=== PATIENT | male | born 1960 | race Caucasian/White ===

== ENCOUNTER 2016-04-18 11:53 | Outpatient (CLI) | payer OTHER ==
[~2016-04-18 11:53] MED LIST: AMOXICILLIN/CL875 MG PO; ASPIRIN 81 LOW81 MG PO; BENICAR20 MG PO; CARVEDILOL12.5 MG PO; CEFEPIME IV; CIPRO500 MG PO; COZAAR25 MG PO; FERROUS SULFAT325 M1 PO; FETZIMA; HYDROCHLOROTHIA50 MG PO; HYDROXYZINE HCL25 MG PO; INVANZ1 GM IV; LANSOPRAZOLE30 MG PO; LEVAQUIN750 MG PO; METFORMIN HCL500 MG PO; MICRO-K 10 EQU10 MEQ PO; MORPHINE SULFAT30 M2 PO; NORVASC5 MG PO; OXYCODONE HCL5 MG PO; OXYCODONE IR PO; OXYCONTIN CR10 MG PO; OXYCONTIN CR15 MG PO; PERCOCET1 TA1 PO; PRILOSEC20 MG PO; SLOW-MAG PO; TRAZODONE HCL100 MG PO; VANCOMYCIN HCL1 GM IV; ZOLOFT50 MG PO; ZYVOX IV; ZYVOX600 MG PO; [UNRECOGNIZED DRUG - REMARK] IV; [UNRECOGNIZED DRUG - SUPPLY]
[2016-05-06] MEDS ORDERED: NORVASC5 MG PO (14:14)
[2016-05-06] MEDS ORDERED: DIPHENHYDRAMINE25 M1 PO (14:15)
[2016-05-06] MEDS ORDERED: CYMBALTA20 MG PO (14:16)
[2016-05-06] MEDS ORDERED: NEURONTIN300 MG PO (14:17)
[2016-05-06] MEDS ORDERED: LEVAQUIN750 MG PO (14:17)
[2016-05-06] MEDS ORDERED: LOPERAMIDE HCL2 M1 PO (14:17)
[2016-05-06] MEDS ORDERED: OMEPRAZOLE20 M1 PO (14:18)
[2016-05-06] MEDS ORDERED: SYMBICORT1 AE1 (14:18)
[2016-05-06] MEDS ORDERED: SYSTANE (14:19)
[2016-05-09] MEDS ORDERED: METFORMIN HCL500 MG PO (16:25)
== END 2016-04-18 23:00 ==
LOC: LAB SRH 11:53
DX: E11.40 Type 2 diabetes mellitus with diabetic neuropathy, unspecified (principal); E11.621 Type 2 diabetes mellitus with foot ulcer
CPT/HCPCS: 90074; 90100; 91286; 95059

== ENCOUNTER 2016-05-06 07:12 | Inpatient (IN) | payer OTHER ==
[2016-05-06] VITALS (8 sets, daily range): BP systolic 110–157; BP diastolic 43–74
[~2016-05-06] VITALS: Ht 193 cm; Wt 138.5 kg
--- NOTE | 2016-05-06 07:59 | DIAGNOSTIC IMAGING REPORT ---
PROCEDURE: XR CHEST 1 VIEW INDICATION: SHORTNESS OF BREATH TECHNIQUE: Portable AP view 07:30 a.m. COMPARISON: Chest x-ray 12/21/2015 FINDINGS: New small right basilar infiltrates. Peribronchial cuffing suggestive of bronchitis. Heart and mediastinum are normal. Thorax is normal. IMPRESSION: 1. Right basilar pneumonia and bronchitis 2. Results discussed with Dr. Long
--- NOTE | 2016-05-06 13:27 | ED NURSING NOTES ---
Clinical Report - Nurses [facility] [address] [place] [address] 05/06/2016 7:12 Patient: CHRISTIN CORDON TRIAGE 07:05/06/16. BP: 134/64 (large adult cuff) taken on the right arm, while lying. HR: 88. RR: 30. O2 saturation: 99% on face mask. Temp: 96.8 F (oral). Pain level now: 0. --07:28 Hailey Moran R.N. late entry - 07:20 05/06/16. --07:54 Hailey Moran R.N. Triage time 07:May 06 2016. Acuity: LEVEL 2. Chief Complaint: SHORTNESS OF BREATH, DIFFICULTY BREATHING and WHEEZING. 07:28 05/06/16. SEPSIS SCREEN: Sepsis Screen. Negative (no infection suspected/documented). MIHIR COMA SCORE: Jasper Coma Scale: 14- eyes open to voice (3); best verbal response- oriented x 4 (5); best motor response- obeys commands (6). --07:28 Hailey Moran R.N. Weight: 136 kg stated. Height/Length: 76 inches Per Patient. BMI: 36.5. --07:25 Hailey Moran R.N. Medications AmLODIPine Besylate Oral 5 mg, 2x a day. Carvedilol Oral (Tablet 12.5 mg) 1 tablet, BID. Hydrochlorothiazide Oral 50 mg, daily. Omeprazole Oral 20 mg, daily. --07:21 Hailey Moran R.N. OxyCODONE HCl ER Oral 15mg BID . --07:21 Hailey Moran R.N. Gabapentin Enacarbil ER Oral. --07:23 Hailey Moran R.N. Loperamide HCl Oral. --07:23 Hailey Moran R.N. Symbicort Inhalation. --07:23 Hailey Moran R.N. Losartan Potassium Oral. --07:23 Hailey Moran R.N. DULoxetine HCl Oral. --07:23 Hailey Moran R.N. DiphenhydrAMINE HCl Oral. --07:35 Hailey Moran R.N. Systane Ophthalmic. --07:35 Hailey Moran R.N. Amoxicillin (not sure of dose) BID . Levaquin Oral 750 mg, daily. --08:09 Hailey Moran R.N. Allergies All narcotics can cause itching- give benadryl before meds . Hydromorphone. ((pills caused itching, but IV dilaudid does ok) ) Promethazine .(itching) Pt had hallucinations when given dilaudid and morphone at hospital same visit . --07:21 Hailey Moran R.N. Sulfa Antibiotics.(hives) --07:21 Hailey Moran R.N. History Arrived by EMS. Historian: EMS. This started just prior to arrival. Onset. (3 AM). He has had wheezing. 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 PAST MEDICAL HX: Diabetes mellitus. Congestive heart failure. Immunizations: status is unknown. SOCIAL HX: Never smoker. No alcohol use or drug use. No infectious disease exposure. ABUSE ASSESSMENT: No report of abuse. --07:28 Hailey Moran R.N. ( EMS reports patient was SOB and called 911 at 3AM, he say he thought it was an allergic reaction, hx CHF, patient wheezing, sats in 70s, placed CPAP and patients sats recovered into the 90s, patient came into ER wheezing, pulling at mask, anxious.). --07:54 Hailey Moran R.N. PROBLEMS: Lower Extremity Pain. Abrasion(s). Fall. Cellulitis. Changed Mental Status. Osteomyelitis. DVT/PE Risk Factors. Peripheral Vascular Disease. Headache. Diabetic Ulcer on R foot. Nephrolithiasis. Hypertension. Hypercholesterolemia. Diabetes Mellitus. --07:22 Hailey Moran R.N. ADDITIONAL SURGERIES: Amputation Lower Extremity. Back Surgery. Knee Surgery. Lithotripsy. Partial foot amputation. Toe amputation. Tonsillectomy. --07:22 Hailey Moran R.N. Interventions ID band on patient. To treatment room. --07:28 Hailey Moran R.N. PHYSICAL ASSESSMENT 07:29 05/06/16. To room via stretcher. Patient gowned. GENERAL / NEURO / PSYCH: Alert. Appears anxious. RESPIRATORY: Moderate respiratory distress. The patient can speak a few words at a time. Mild accessory muscle use. Wheezing present. CVS: Capillary refill less than 2 seconds. GI / : Abdomen soft and nontender. SKIN: Skin is warm. --07:29 Hailey Moran R.N. NURSING PROGRESS NOTES 07:30 05/06/16. Oxygen administered. Monitoring of patient in place. Patient gowned. Head of bed elevated. Reassurance given. Two patient identifiers checked. Call light placed in reach. Side rails up x 2. Bed placed in lowest position. Brakes of bed on. Patient ready for evaluation- chart flagged and ED physician notified. --07:30 Hailey Moran R.N. 07:39 05/06/2016 Site #1 started prior to arrival by EMS via IV in the left antecubital space with an 20g angiocath. --07:39 Hailey Moran R.N. 07:41 05/06/2016 SOLU-MEDROL (MethylPREDNISolone Sodium Succ) IVP 80 mg given over 2 minute(s) via site #1. Allergies verified and confirmed 5 rights. IV patency established. IV site checked: no pain, redness, or swelling. IV flushed thoroughly pre- and post-medication administration. IVP given by RN. --07:41 Hailey Moran R.N. 08:13 05/06/16. --08:13 Hailey Moran R.N. 08:09 05/06/16. BP: 141/71 (large adult cuff) taken on the right arm, while sitting. HR: 83. RR: 24 (labored). O2 saturation: 95% on face mask at 15 liters/minute. Temp: 97.5 F (oral). Pain level now: 0/10. --08:13 Hailey Moran R.N. EKG time: (0728 AM). EKG was ordered, performed by a tech and shown to the ED physician. --08:16 Arabella Morillo Finger stick glucose: 257; ordered; performed by tech; result shown to the ED physician. --08:17 Arabella Morillo 08:32 05/06/2016 Started 750 mg of Levaquin (Levofloxacin) IVPB in bag #1 150 mL; at 100 mL/hr over 1.5 hour(s) via site #1 via IV pump. Allergies verified and confirmed 5 rights. IV patency established. IV site checked: no pain, redness, or swelling. IV flushed thoroughly pre- and post-medication administration. --08:42 Hailey Moran R.N. 08:43 05/06/16. ( Patients sitting at bedside, patient moaning off and on but states that is normal for him. He complains of being cold but after blankets covered and tucked he states he is better.). --08:43 Hailey Moran R.N. 09:05 05/06/16. ( Levaquin running, patient sleeping, easily aroused, sitting at patients bedside). --09:05 Hailey Moran R.N. 09:03 05/06/16. BP: 121/60 (large adult cuff) taken on the right arm, while sitting. HR: 76. RR: 28 (labored). O2 saturation: 98% on face mask at 15 liters/minute. Temp: 97.2 F (oral). Pain level now: 0/10. --09:05 Hailey Moran R.N. ( H&P form given to patients to help fill out.). --09:14 Galina Morris 09:10 05/06/2016 Started bag #1 1000 mL IV Fluids IV NS (Saline); at 1000 mL/hr over 1 hour(s) via site #1 via IV pump. Allergies verified and confirmed 5 rights. IV patency established. IV site checked: no pain, redness, or swelling. IV flushed thoroughly pre- and post-medication administration. --09:20 Hailey Moran R.N. 09:32 05/06/2016 Lovenox (Enoxaparin Sodium) Subcutaneous 100 mg given. Given in the right abdomen. Allergies verified and confirmed 5 rights. --09:32 Hailey Moran R.N. 09:32 05/06/2016 Lovenox (Enoxaparin Sodium) Subcutaneous 30 mg given. Given in the right abdomen. Allergies verified and confirmed 5 rights. --09:32 Hailey Moran R.N. 09:32 05/06/16. O2 saturation: 100% on face mask at 15 liters/minute. --09:34 Hailey Moran R.N. 09:34 05/06/16. ( Patient given 130mg of Lovenox total per pharmacy recommendation.). --09:34 Hailey Moran R.N. 09:42 05/06/16. Finger stick glucose: 240 mg/dL; performed by nurse; result shown to the ED physician. --09:42 Hailey Moran R.N. 09:46 05/06/16. --09:46 Hailey Moran R.N. 09:45 05/06/16. BP: 130/82 (large adult cuff) taken on the right arm, while sitting. HR: 86. RR: 24. O2 saturation: 100% on face mask at 15 liters/minute. Pain level now: 0/10. --09:46 Hailey Moran R.N. 09:58 05/06/16. ( Patient took his home pain medication Oxycontin 15mg). --09:58 Hailey Moran R.N. 09:59 05/06/16. ( Dr Wynne at bedside). --09:59 Hailey Moran R.N. 10:00 05/06/16. O2 saturation: 100% on face mask at 15 liters/minute. --10:00 Hailey Moran R.N. 10:15 05/06/16. O2 saturation: 100% on face mask at 15 liters/minute. --10:29 Hailey Moran R.N. <<STRICKEN ENTRY-- 10:28 05/06/16. O2 saturation: 100% on face mask at 15 liters/minute. --10:29 Hailey Moran R.N. --END STRIKE>> Other. --10:30 Hailey Moran R.N. late entry - 10:15 AM. --10:29 Hailey Moran R.N. 10:29 05/06/16. O2 saturation: 100% on face mask at 15 liters/minute. --10:29 Hailey Moran R.N. 10:29 05/06/16. --10:29 Hailey Moran R.N. 10:38 05/06/2016 Levaquin IVPB Discontinued: bag #2 completed. Total amount infused: 150 mL. IV patency established. IV site checked: no pain, redness, or swelling. IV flushed thoroughly. --10:38 Hailey Moran R.N. 10:39 05/06/2016 IV Fluids IV NS via IV site #1 Rate Changed: bag #1 decreased to 250 mL/hr via IV pump. IV patency established. IV site checked: no pain, redness, or swelling. IV flushed thoroughly. Confirmed 5 Rights. --10:39 Hailey Moran R.N. <<STRICKEN ENTRY-- 10:49 05/06/16. HR: 81. RR: 20 (regular). O2 saturation: 100% on face mask at 15 liters/minute. Temp: 98.4 F (oral). Pain level now: 0/10. --10:51 Hailey Moran R.N. --END STRIKE>> Other. --11:36 Hailey Moran R.N. 10:51 05/06/16. --10:51 Hailey Moran R.N. 10:49 05/06/16. BP: 156/74 (large adult cuff) taken on the right arm, while sitting. HR: 81. RR: 20 (regular). O2 saturation: 100% on face mask at 15 liters/minute. Temp: 98.4 F (oral). Pain level now: 0/10. --10:51 Hailey Moran R.N. 11:00 05/06/16. O2 saturation: 100%. --11:24 Hailey Moran R.N. 11:15 05/06/16. O2 saturation: 100% on face mask at 15 liters/minute. --11:24 Hailey Moran R.N. 11:34 05/06/16. O2 saturation: 98% on face mask at 15 liters/minute. --11:36 Hailey Moran R.N. 11:45 05/06/16. O2 saturation: 100% on face mask at 15 liters/minute. --11:59 Hailey Moran R.N. 11:59 05/06/16. BP: 166/71 (large adult cuff) taken on the right arm, while sitting. HR: 94. RR: 20 (unlabored and deep). O2 saturation: 98% on face mask at 15 liters/minute. Temp: 98.4 F (oral). Pain level now: 0/10. --12:03 Hailey Moran R.N. 12:22 05/06/16. O2 saturation: 94% on room air. Additional comments: face mask off due to eating lunch. --12:24 Hailey Moran R.N. Finger stick glucose: 202 mg/dL 12:34 May 06 2016; performed by nurse; result shown to the ED physician. --12:35 Hailey Moran R.N. 11:00 05/06/2016 IV Fluids IV NS Discontinued: bag #1 completed. Total amount infused: 500 mL. IV patency established. IV site checked: no pain, redness, or swelling. IV flushed thoroughly. (This was with patient when he came in started by EMS). --12:36 Hailey Moran R.N. 11:30 05/06/2016 Started bag #1 1000 mL IV Fluids IV NS (Saline); at 250 mL/hr over 4 hour(s) via site #1 via IV pump. Allergies verified and confirmed 5 rights. IV patency established. IV site checked: no pain, redness, or swelling. IV flushed thoroughly pre- and post-medication administration. --12:39 Hailey Moran R.N. 11:36 05/06/16. ( Patient doing well, sleeping, easily aroused with sitting at bed side). --11:36 Hailey Moran R.N. 12:03 05/06/16. The patient is calm. Overall patient status is improved- he states feels better. RESPIRATORY: No respiratory distress. SKIN: Skin is warm. Skin color within normal limits. ( Patient talkative and feeling good, he is hungry, will request a lunch tray). --12:03 Hailey Moran R.N. 12:11 05/06/16. ( Diabetic lunch tray provided to pt.). --12:11 Morgan Santos R.N. 12:24 05/06/16. ( Patient eating lunch with 's help). --12:24 Hailey Moran R.N. 12:50 05/06/16. ( Patient taking his Oxycodon 5mg for breakthrough pain, his lower back is starting to hurt from sitting on the bed for so long. Still have not located a bed yet). --12:50 Hailey Moran R.N. 12:49 05/06/16. O2 saturation: 100% on face mask at 15 liters/minute. --12:50 Hailey Moran R.N. 13:15 05/06/16. O2 saturation: 100% on face mask at 15 liters/minute. --13:34 Hailey Moran R.N. 13:35 05/06/16. --13:35 Hailey Moran R.N. 13:34 05/06/16. BP: 116/53 (large adult cuff) taken on the right arm, while sitting. HR: 78. O2 saturation: 100% on face mask at 15 liters/minute. Pain level now: 6/10. Additional comments: in low back. --13:35 Hailey Moran R.N. 14:15 05/06/16. Finger stick glucose: 199; ordered; performed by tech; result shown to the ED physician. --14:15 Arabella Morillo 14:10 05/06/16. O2 saturation: 99%. --14:25 Ally Oviedo R.N. 14:32 05/06/16. ( Patient getting ready to go for lung testing. Patient says he is feeling good just wants to get to another bed.). --14:32 Hailey Moran R.N. 14:29 05/06/16. BP: 126/35 (regular adult cuff) taken on the right arm, while sitting. HR: 83. RR: 20 (regular). O2 saturation: 98% on face mask at 15 liters/minute. Temp: 97.6 F (oral). Pain level now: 03/31. --14:32 Hailey Moran R.N. DISPOSITION / DISCHARGE 14:53 05/06/2016 IV Fluids IV NS Discontinued: bag #3 discontinued upon discharge. Total amount infused: 800 mL. IV patency established. IV site checked: no pain, redness, or swelling. IV flushed thoroughly. --14:53 Hailey Moran R.N. 14:54 05/06/2016 Site #[address] upon discharge; patent, no pain and no signs of infection or infiltration. Good blood return present. Flushed with 10 mL saline; flushes easily (Patient transferred to CCU). --14:54 Hailey Moran R.N. 14:56 05/06/16. Departure time: 14:56 May 06 2016. Condition at departure: improved. Admitted to the Critical Care Unit (14:54 May 06 2016). Report was given to a nurse via a phone call. Report included patient's care and treatment. All questions were answered. Report was acknowledged and care was transferred. ( Patient going to lung scan via WC with tech, tech will transfer patient to CCU after done with scan). Patient's personal items include, brought clothes and all home meds to home. --14:56 Hailey Moran R.N. 14:52 05/06/16. BP: 126/35 (large adult cuff) taken on the right arm, while sitting. HR: 78. RR: 20 (regular). O2 saturation: 100% on face mask at 15 liters/minute. Temp: 97.6 F (oral). Pain level now: 03/31. --14:56 Hailey Moran R.N. Locked/Released at 05/06/2016 14:59 by Hailey Moran R.N.
--- NOTE | 2016-05-06 13:27 | ED CLINICAL REPORT ---
Clinical Report - Physicians/Mid Levels Located Within [facility] [address] [place] [address] 05/06/2016 7:12 Patient: CHRISTIN CORDON Time Seen: 07:21 May 06 2016. Arrived- By ambulance. Historian- patient and EMS personnel. CPT: Critical care < 74 min plus (#[id number]) and 30-74 min plus (#[id number]). EKG interpretation (#[id number]). HISTORY OF PRESENT ILLNESS Chief Complaint: DYSPNEA and HISTORY OF CONGESTIVE HEART FAILURE. This started just prior to arrival says he had gastric upset all night last night with lots of burping. The daughter had the same thing. He does this periodically. He then had an emesis in the night. She says he went out to go to the bathroom in the home next to their trailer and returned only to collapse in the doorway with c/o being SOB. He had taken some benadryl a little earlier as well because he was itchy in the night and thought he was having a reaction to the pistaccios he had been eating earlier. He has a known allergy to pistaccios. and is still present. The dyspnea is severe and is worsened by walking and exertion, is improved by rest and is improved with oxygen. The patient has had a mild cough, wheezing, dyspnea on exertion and anxiety. 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 No fever, sweating episodes, chest pain or discomfort or calf pain. No foot swelling, dizziness or palpitations. Similar symptoms previously: Milder. Diagnosis: bronchitis. Recent medical care: Not recently seen/assessed. REVIEW OF SYSTEMS No sore throat or throat, nasal discharge, sinus drainage or nausea. No vomiting, abdominal pain, diarrhea, black stools or difficulty with urination. No skin rash, enlarged lymph nodes, joint pain, chills or fever. No back pain, neck pain or easy bruising. The patient experienced a syncopal episode upon standing; (today: possibly). He has had difficulty walking. He has had weakness, and diabetic symptoms. All systems otherwise negative, except as recorded above. PAST HISTORY Heart disease. ( Cellulitis. Osteomyelitis. DVT/PE Risk Factors. Peripheral Vascular Disease. Diabetic Ulcer on R foot. Nephrolithiasis. Hypertension. Hypercholesterolemia. Diabetes Mellitus.). SURGERY HX: ( Back Surgery. Knee Surgery. Lithotripsy. 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 Tonsillectomy. Urinary calculi. SOCIAL HISTORY Never smoker. No alcohol use or drug use. ADDITIONAL NOTES The nursing notes have been reviewed. PHYSICAL EXAM Vital Signs: 05/06/2016 07:20 BP: 134/64. HR: 88. RR: 30. O2 saturation: 99%. Temp: 96.8 F. Pain level now: 0/10. Appearance: Alert. Anxious. Patient in moderate distress. Eyes: Pupils equal, round and reactive to light. Eyes normal inspection. ENT: Nose normal. Pharynx normal. Neck: Normal inspection. No jugular venous distention. CVS: Normal heart rate and rhythm. Heart sounds normal. Pulses normal. Respiratory: Moderate respiratory distress. Expiratory mild bilateral wheezes diffusely. Abdomen: Soft and nontender. Back: Normal inspection. Skin: Skin warm. Normal skin color. No rash. Extremities: Bilateral mild pitting edema of the lower extremities. Extremities exhibit normal ROM. (Multiple toe amputations both feet. No sign of cellulitis or abscess.). Neuro: Oriented X 3. No motor deficit. No sensory deficit. LABS, X-RAYS, AND EKG EKG: Normal sinus rhythm. Normal P waves. Normal CED. Normal QRS complex. Right axis deviation. Non-specific ST segment / T wave abnormalities. Prior EKG unavailable. The study has been interpreted contemporaneously. The study has been independently viewed by me. The EKG appears to be a good tracing. Chest X-ray: Infiltrate in the right lower lobe. Consistent with pneumonia. Views: AP (portable). Technique: good. The X-rays were independently viewed by me, interpreted by the radiologist and discussed with the radiologist. Laboratory Tests: CBC w Diff: (LATONIA: 05/06/2016 07:45) ( MsgRcvd 05/06/2016 08:02) Final results Test Result Flag Units (Reference) WHITE BLOOD COUNT 24.5 H K/uL (4.5-11.5) RED BLOOD COUNT 5.01 M/uL (4.50-5.90) HEMOGLOBIN 14.2 gm/dL (13.5-17.5) HEMATOCRIT 44.7 % (41.0-53.0) MEAN CELL VOLUME 89 fL (80-100) MEAN CORPUSCULAR HGB 28 pg (26-34) MEAN CORPUSCULAR HGB CONC 32 g/dL (31-37) RED CELL DISTRIBUTION WIDTH 14.7 % (11.6-14.8) PLATELET COUNT 450 H K/uL (150-400) NEUTROPHIL % 90.1 H % (50-75) LYMPH % 9.0 L % (25-40) MONO % 0.2 L % (3-14) EOSINOPHIL % 0.7 % (0-4) BASOPHIL % 0 % (0-2) [id number]: (LATONIA: 05/06/2016 07:45) ( [facility] 05/06/2016 08:12) Final results Test Result Flag Units (Reference) D-DIMER QUANTITATIVE 1.75 H ug/mLFEU (0.27-0.52) The primary value of this quantitative assay relates toits negative predictive value (i.e. exclusion) of pulmonaryembolism/deep vein thrombosis/DIC.Elevated levels of d-dimer may also occur with:, age, cancer, inflammation, liver disease,post-op, infection, hematoma, coronary disease, peripheralarteriopathy, bleeding disorders and thrombolytic treatment.Results should be correlated with other clinical andradiological data.Testing Methodology: Latex Immunoassay Lactate, Serum: (LATONIA: 05/06/2016 07:45) ( [facility] 05/06/2016 08:30) Final results Test Result Flag Units (Reference) LACTIC ACID 3.0 H mmol/L (0.4-2.0) [id number]: (LATONIA: 05/06/2016 07:45) ( [facility] 05/06/2016 08:36) Final results Test Result Flag Units (Reference) PROCALCITONIN <0.5 ng/mL (0-0.5) PCT Concentration: Interpretation : Risk/option for action PCT <=0.5 ng/mL : Systemic : Low risk forinfection(sepsis): progression to severeis not likely. : systemic infection.Local bacterial : CAUTION-PCT levelsinfection is : below 0.5 ng/mL do notpossible. : exclude an infection,because localizedinfections (withoutsystemic signs) may beassociated with suchlow levels. If PCT ismeasured very earlyafter a bacterialchallenge (usually <6hours), these valuesmay still be low. Inthis case PCT shouldbe re-assessed 6-24hours later. PCT >0.5 and : Systemic infection: Moderate risk for<= 2 ng/mL : (sepsis) is : progression to severepossible, but : systemic infection.other conditions : The patient should beare known to : closely monitoredelevate PCT. : both clinically andby re-assessing PCTwithin 6-24 hours. PCT > 2 ng/mL : Systemic infection: High risk for(sepsis) is likely: progression to severeunless other : systemic infection.causes are known. : PCT >= 10 ng/mL : Important systemic: High likelihood ofinflammatory : severe sepsis orresponse, almost : septic shock.exclusively due to:severe bacterial :sepsis or septic :shock. : BNP: (LATONIA: 05/06/2016 07:45) ( MsgRcvd 05/06/2016 08:25) Final results Test Result Flag Units (Reference) B-TYPE NATRIURETIC PEPTIDE 35.2 pg/ml (5-100) CHEM 13 PANEL: (LATONIA: 05/06/2016 07:45) ( MsgRcvd 05/06/2016 08:21) Final results Test Result Flag Units (Reference) GLUCOSE 303 H mg/dL (70-110) BUN 28 H mg/dL (7-18) CREATININE 1.5 H mg/dL (0.6-1.3) Estimated GFR 51.64 mL/min Estimated GFR- >60 mL/min Note: Persistent reduction over 3 months in eGFR<60 mL/min/1.73 m2 defines CKD. Patients with eGFR values>=60 mL/min/1.73 m2 may also have CKD if evidence ofpersistent proteinuria. Additional information may be foundat [email or web address].org. SODIUM 141 mmol/L (136-145) POTASSIUM 3.8 mmol/L (3.5-5.1) CHLORIDE 101 mmol/L (98-107) CARBON DIOXIDE 29 mmol/L (21-32) CALCIUM 9.1 mg/dL (8.5-10.1) TOTAL PROTEIN 8.2 g/dL (6.4-8.2) ALBUMIN 3.2 L g/dL (3.3-5.0) BILIRUBIN, TOTAL 0.6 mg/dL (0.0-1.0) ALKALINE PHOSPHATASE 133 H U/L (46-116) AST (SGOT) 15 U/L (15-37) ALT (SGPT) 15 U/L (12-78) CPK 46 U/L (24-260) MAGNESIUM 1.4 L mg/dL (1.8-2.4) TROPONIN I <0.05 ng/mL (0.00-1.5) TROPONIN REFERENCE RANGE:<0.1 NEGATIVE0.1-1.5 INDETERMINANT>1.5 POSITIVE ABG: (LATONIA: 05/06/2016 07:22) ( MsgRcvd 05/06/2016 07:40) Final results Test Result Flag Units (Reference) FIO2 0.32 L % (20-101) ABG MODE OF DELIVERY NC MODIFIED CAREN TEST POSITIVE? YES LITERS PER MIN. 3 L/MIN (0-20) ABG PATIENT RESP RATE 26 /MIN ARTERIAL BLOOD GAS SITE RR ARTERIAL BLOOD GAS pH 7.40 (7.35-7.45) ABG PCO2 50.4 H mmHg (35-45) ABG PO2 53.2 L mmHg (80.0-100.0) ABG BASE EXCESS 5.6 H mmol/L (-6.0--6.0) ABG HCO3 31.2 *H mmol/L (20.0-26.0) ABG TCO2 32.7 H mmol/L (24.0-30.0) ABG WyUkN3y 114.6 H mmHg (7.0-14.0) *NOTE: Normal rangeis based on aFIO2 of 21% ABG SAT O2 87.9 L % (95.1-100.0) ABG TOTAL HEMOGLOBIN 14.1 g/dL (14.0-18.0) ABG O2 HEMOGLOBIN 86.2 L % (95.0-100.0) ABG CARBOXYHEMOGLOBIN 2.1 H % (0.5-1.5) ABG METHEMOGLOBIN -0.2 L % (0.4-1.5) ABG RHEMOGLOBIN 11.9 % . PROGRESS AND PROCEDURES Course of Care: Xopenex HHN : Better Solumedrol 80 mg IV due to recent report of itching after eating pistaccios(known allergy). Heplock BC times 1 Levaquin 750 mg IV 09:20 05/06/16. Discussed D-dimer and hypoxia with Dr Wynne and will go ahead with lovenox 1mg/kg and V/Q scan as CT scanner is down. Pt stable and resting at this time. Critical care performed (95 minutes). Time is exclusive of separately billable procedures. Time includes: direct patient care, patient reassessment, coordination of patient care, interpretation of data (laboratory data, pulse oximetry, arterial blood gases, chest xrays and cardiac output measurements), review of patient's medical records, medical consultation and documentation of patient care. Procedures included in critical care time: peripheral IV placement and phlebotomy- see progress notes. Procedures excluded from critical care time: electrocardiography. Discussed case with on-call health care provider, (Ricci). Reviewed test results. Agreed upon treatment plan. Health care provider will see patient in ED. Patient/family counseled. Old medical records ordered. Disposition orders written. Disposition: Admitted to Acute Care. CLINICAL IMPRESSION Acute dyspnea Bacterial bronchopneumonia with hypoxemia. Vital signs recorded and reviewed; empiric antibiotics given in the ED. Elevated D-dimer r/o PE Pre-renal azotemia. INSTRUCTIONS Warnings: Further evaluation is necessary. (Electronically signed by Christin Long MD 05/06/2016 18:39)
--- NOTE | 2016-05-06 13:27 | ED ORDER SUMMARY ---
..... Patient: CHRISTIN CORDON OrderSheet [facility] VisitID: [id number] [place] [address] 56y, M Registration Date/Time: 05/06/2016 ORDER SHEET Weight: 136.0 kg (stated) Allergies: All narcotics can cause itching- give benadryl before meds , Hydromorphone, Promethazine , Pt had hallucinations when given dilaudid and morphone at hospital same visit , Sulfa Antibiotics GENERAL ORDERS: Chest 1V Urgent (07:05/06/2016 Pinky PRATHER) (Ack 7:27 Power) (7:36 JSanders R.N.) Open Hearth Door Liner (Continuous) (:05/06/2016 Pinky PRATHER) (7:24 JSimbeck R.N.) Cardiac Panel Stat (:05/06/2016 Pinky PRATHER) (Ack 7:27 Power) (8:06 JSanders R.N.) BNP Urgent (07:05/06/2016 Pinky PRATHER) (Ack 7:27 Power) (8:06 JSanders R.N.) Oxygen (2 L/min) (NC) (07:05/06/2016 Pinky PRATHER) (7:24 JSimbeck R.N.) Pulse oximeter (:05/06/2016 Pinky PRATHER) (7:24 JSimbeck R.N.) EKG - ER Stat (07:05/06/2016 Pinky PRATHER) (Ack 7:27 Power) (7:30 TBergley) ABG (G) Urgent (07:05/06/2016 Pinky PRATHER) (Ack 7:28 Power) (7:35 JSimbeck R.N.) D-Dimer Urgent (07:43 05/06/2016 Pinky PRATHER) (Ack 7:46 Power) (8:06 JSanders R.N.) Lactate, Serum Urgent (07:46 05/06/2016 Pinky PRATHER) (Ack 7:51 Power) (8:06 JSanders R.N.) PCT (Procalcitonin) Urgent (07:46 05/06/2016 Pinky PRATHER) (Ack 7:51 Power) (8:06 Eldons R.N.) Blood Culture (No) (N/A) Urgent (07:48 05/06/2016 Pinky PRATHER) (Ack 7:51 Power) (8:06 Eldons R.N.) VQ Scan Urgent (09:18 05/06/2016 Pinky PRATHER) (Ack 10:02 Power) (14:58 Eldons R.N.) MEDICATION ORDERS: Lovenox Subcut 1 mg/kg (NOW) (09:18 05/06/2016 Pinky PRATHER) (9:32 Daron R.N.) IV FLUIDS: IV Saline Lock (07:22 05/06/2016 Pinky PRATHER) (7:39 Daron R.N.) Solu-MEDROL IV 80 mg (NOW) (07:33 05/06/2016 Pinky PRATHER) (7:41 Daron R.N.) Levaquin IV 750 mg/150 mL (NOW) (08:10 05/06/2016 Pinky PRATHER) (8:42 Daron R.N.) IV NS : initial bolus 500 mL (1000 mL/hr), then 250 mL/hr for 4h (NOW); Routine (09:04 05/06/2016 Pinky PRATHER) (9:20 Eldons R.N.) ORDER SHEET NOTES: [Electronically signed by Hailey Moran R.N. (14:59 05/06/2016)] [Electronically signed by Christin Long MD (18:39 05/06/2016)] [Electronically locked/signed by Hailey Moran R.N. (14:59 05/06/2016)]
--- NOTE | 2016-05-06 13:27 | ED CLINICAL REPORT ---
Clinical Report - Physicians/Mid Levels [facility] [address] [place] [address] 05/06/2016 7:12 Patient: CHRISTIN CORDON Time Seen: 07:21 May 06 2016. Arrived- By ambulance. Historian- patient and EMS personnel. CPT: Critical care < 74 min plus (#[id number]) and 30-74 min plus (#[id number]). EKG interpretation (#[id number]). HISTORY OF PRESENT ILLNESS Chief Complaint: DYSPNEA and HISTORY OF CONGESTIVE HEART FAILURE. This started just prior to arrival says he had gastric upset all night last night with lots of burping. The daughter had the same thing. He does this periodically. He then had an emesis in the night. She says he went out to go to the bathroom in the home next to their trailer and returned only to collapse in the doorway with c/o being SOB. He had taken some benadryl a little earlier as well because he was itchy in the night and thought he was having a reaction to the pistaccios he had been eating earlier. He has a known allergy to pistaccios. and is still present. The dyspnea is severe and is worsened by walking and exertion, is improved by rest and is improved with oxygen. The patient has had a mild cough, wheezing, dyspnea on exertion and anxiety. 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 No fever, sweating episodes, chest pain or discomfort or calf pain. No foot swelling, dizziness or palpitations. Similar symptoms previously: Milder. Diagnosis: bronchitis. Recent medical care: Not recently seen/assessed. REVIEW OF SYSTEMS No sore throat or throat, nasal discharge, sinus drainage or nausea. No vomiting, abdominal pain, diarrhea, black stools or difficulty with urination. No skin rash, enlarged lymph nodes, joint pain, chills or fever. No back pain, neck pain or easy bruising. The patient experienced a syncopal episode upon standing; (today: possibly). He has had difficulty walking. He has had weakness, and diabetic symptoms. All systems otherwise negative, except as recorded above. PAST HISTORY Heart disease. ( Cellulitis. Osteomyelitis. DVT/PE Risk Factors. Peripheral Vascular Disease. Diabetic Ulcer on R foot. Nephrolithiasis. Hypertension. Hypercholesterolemia. Diabetes Mellitus.). SURGERY HX: ( Back Surgery. Knee Surgery. Lithotripsy. 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 Tonsillectomy. Urinary calculi. SOCIAL HISTORY Never smoker. No alcohol use or drug use. ADDITIONAL NOTES The nursing notes have been reviewed. PHYSICAL EXAM Vital Signs: 05/06/2016 07:20 BP: 134/64. HR: 88. RR: 30. O2 saturation: 99%. Temp: 96.8 F. Pain level now: 0/10. Appearance: Alert. Anxious. Patient in moderate distress. Eyes: Pupils equal, round and reactive to light. Eyes normal inspection. ENT: Nose normal. Pharynx normal. Neck: Normal inspection. No jugular venous distention. CVS: Normal heart rate and rhythm. Heart sounds normal. Pulses normal. Respiratory: Moderate respiratory distress. Expiratory mild bilateral wheezes diffusely. Abdomen: Soft and nontender. Back: Normal inspection. Skin: Skin warm. Normal skin color. No rash. Extremities: Bilateral mild pitting edema of the lower extremities. Extremities exhibit normal ROM. (Multiple toe amputations both feet. No sign of cellulitis or abscess.). Neuro: Oriented X 3. No motor deficit. No sensory deficit. LABS, X-RAYS, AND EKG EKG: Normal sinus rhythm. Normal P waves. Normal CED. Normal QRS complex. Right axis deviation. Non-specific ST segment / T wave abnormalities. Prior EKG unavailable. The study has been interpreted contemporaneously. The study has been independently viewed by me. The EKG appears to be a good tracing. Chest X-ray: Infiltrate in the right lower lobe. Consistent with pneumonia. Views: AP (portable). Technique: good. The X-rays were independently viewed by me, interpreted by the radiologist and discussed with the radiologist. Laboratory Tests: CBC w Diff: (LATONIA: 05/06/2016 07:45) ( MsgRcvd 05/06/2016 08:02) Final results Test Result Flag Units (Reference) WHITE BLOOD COUNT 24.5 H K/uL (4.5-11.5) RED BLOOD COUNT 5.01 M/uL (4.50-5.90) HEMOGLOBIN 14.2 gm/dL (13.5-17.5) HEMATOCRIT 44.7 % (41.0-53.0) MEAN CELL VOLUME 89 fL (80-100) MEAN CORPUSCULAR HGB 28 pg (26-34) MEAN CORPUSCULAR HGB CONC 32 g/dL (31-37) RED CELL DISTRIBUTION WIDTH 14.7 % (11.6-14.8) PLATELET COUNT 450 H K/uL (150-400) NEUTROPHIL % 90.1 H % (50-75) LYMPH % 9.0 L % (25-40) MONO % 0.2 L % (3-14) EOSINOPHIL % 0.7 % (0-4) BASOPHIL % 0 % (0-2) [id number]: (LATONIA: 05/06/2016 07:45) ( [facility]) Final results Test Result Flag Units (Reference) D-DIMER QUANTITATIVE 1.75 H ug/mLFEU (0.27-0.52) The primary value of this quantitative assay relates toits negative predictive value (i.e. exclusion) of pulmonaryembolism/deep vein thrombosis/DIC.Elevated levels of d-dimer may also occur with:, age, cancer, inflammation, liver disease,post-op, infection, hematoma, coronary disease, peripheralarteriopathy, bleeding disorders and thrombolytic treatment.Results should be correlated with other clinical andradiological data.Testing Methodology: Latex Immunoassay Lactate, Serum: (LATONIA: 05/06/2016 07:45) ( [facility] 05/06[facility] 08:30) Final results Test Result Flag Units (Reference) LACTIC ACID 3.0 H mmol/L (0.4-2.0) [id number]: (LATONIA: 05/06/2016 07:45) ( [facility] 05/06/2016 08:36) Final results Test Result Flag Units (Reference) PROCALCITONIN <0.5 ng/mL (0-0.5) PCT Concentration: Interpretation : Risk/option for action PCT <=0.5 ng/mL : Systemic : Low risk forinfection(sepsis): progression to severeis not likely. : systemic infection.Local bacterial : CAUTION-PCT levelsinfection is : below 0.5 ng/mL do notpossible. : exclude an infection,because localizedinfections (withoutsystemic signs) may beassociated with suchlow levels. If PCT ismeasured very earlyafter a bacterialchallenge (usually <6hours), these valuesmay still be low. Inthis case PCT shouldbe re-assessed 6-24hours later. PCT >0.5 and : Systemic infection: Moderate risk for<= 2 ng/mL : (sepsis) is : progression to severepossible, but : systemic infection.other conditions : The patient should beare known to : closely monitoredelevate PCT. : both clinically andby re-assessing PCTwithin 6-24 hours. PCT > 2 ng/mL : Systemic infection: High risk for(sepsis) is likely: progression to severeunless other : systemic infection.causes are known. : PCT >= 10 ng/mL : Important systemic: High likelihood ofinflammatory : severe sepsis orresponse, almost : septic shock.exclusively due to:severe bacterial :sepsis or septic :shock. : BNP: (LATONIA: 05/06/2016 07:45) ( MsgRcvd 05/06/2016 08:25) Final results Test Result Flag Units (Reference) B-TYPE NATRIURETIC PEPTIDE 35.2 pg/ml (5-100) CHEM 13 PANEL: (LATONIA: 05/06/2016 07:45) ( MsgRcvd 05/06/2016 08:21) Final results Test Result Flag Units (Reference) GLUCOSE 303 H mg/dL (70-110) BUN 28 H mg/dL (7-18) CREATININE 1.5 H mg/dL (0.6-1.3) Estimated GFR 51.64 mL/min Estimated GFR- >60 mL/min Note: Persistent reduction over 3 months in eGFR<60 mL/min/1.73 m2 defines CKD. Patients with eGFR values>=60 mL/min/1.73 m2 may also have CKD if evidence ofpersistent proteinuria. Additional information may be foundat [email or web address].org. SODIUM 141 mmol/L (136-145) POTASSIUM 3.8 mmol/L (3.5-5.1) CHLORIDE 101 mmol/L (98-107) CARBON DIOXIDE 29 mmol/L (21-32) CALCIUM 9.1 mg/dL (8.5-10.1) TOTAL PROTEIN 8.2 g/dL (6.4-8.2) ALBUMIN 3.2 L g/dL (3.3-5.0) BILIRUBIN, TOTAL 0.6 mg/dL (0.0-1.0) ALKALINE PHOSPHATASE 133 H U/L (46-116) AST (SGOT) 15 U/L (15-37) ALT (SGPT) 15 U/L (12-78) CPK 46 U/L (24-260) MAGNESIUM 1.4 L mg/dL (1.8-2.4) TROPONIN I <0.05 ng/mL (0.00-1.5) TROPONIN REFERENCE RANGE:<0.1 NEGATIVE0.1-1.5 INDETERMINANT>1.5 POSITIVE ABG: (LATONIA: 05/06/2016 07:22) ( MsgRcvd 05/06/2016 07:40) Final results Test Result Flag Units (Reference) FIO2 0.32 L % (20-101) ABG MODE OF DELIVERY NC MODIFIED CAREN TEST POSITIVE? YES LITERS PER MIN. 3 L/MIN (0-20) ABG PATIENT RESP RATE 26 /MIN ARTERIAL BLOOD GAS SITE RR ARTERIAL BLOOD GAS pH 7.40 (7.35-7.45) ABG PCO2 50.4 H mmHg (35-45) ABG PO2 53.2 L mmHg (80.0-100.0) ABG BASE EXCESS 5.6 H mmol/L (-6.0--6.0) ABG HCO3 31.2 *H mmol/L (20.0-26.0) ABG TCO2 32.7 H mmol/L (24.0-30.0) ABG QsTzM2j 114.6 H mmHg (7.0-14.0) *NOTE: Normal rangeis based on aFIO2 of 21% ABG SAT O2 87.9 L % (95.1-100.0) ABG TOTAL HEMOGLOBIN 14.1 g/dL (14.0-18.0) ABG O2 HEMOGLOBIN 86.2 L % (95.0-100.0) ABG CARBOXYHEMOGLOBIN 2.1 H % (0.5-1.5) ABG METHEMOGLOBIN -0.2 L % (0.4-1.5) ABG RHEMOGLOBIN 11.9 % . PROGRESS AND PROCEDURES Course of Care: Xopenex HHN : Better Solumedrol 80 mg IV due to recent report of itching after eating pistaccios(known allergy). Heplock BC times 1 Levaquin 750 mg IV 09:20 05/06/16. Discussed D-dimer and hypoxia with Dr Wynne and will go ahead with lovenox 1mg/kg and V/Q scan as CT scanner is down. Pt stable and resting at this time. Critical care performed (95 minutes). Time is exclusive of separately billable procedures. Time includes: direct patient care, patient reassessment, coordination of patient care, interpretation of data (laboratory data, pulse oximetry, arterial blood gases, chest xrays and cardiac output measurements), review of patient's medical records, medical consultation and documentation of patient care. Procedures included in critical care time: peripheral IV placement and phlebotomy- see progress notes. Procedures excluded from critical care time: electrocardiography. Discussed case with on-call health care provider, (Ricci). Reviewed test results. Agreed upon treatment plan. Health care provider will see patient in ED. Patient/family counseled. Old medical records ordered. Disposition orders written. Disposition: Admitted to Acute Care. CLINICAL IMPRESSION Acute dyspnea Bacterial bronchopneumonia with hypoxemia. Vital signs recorded and reviewed; empiric antibiotics given in the ED. Elevated D-dimer r/o PE Pre-renal azotemia. INSTRUCTIONS Warnings: Further evaluation is necessary. (Electronically signed by Christin Long MD 05/06/2016 18:39)
--- NOTE | 2016-05-06 13:27 | ED ORDER SUMMARY ---
..... Patient: CHRISTIN CORDON OrderSheet [facility] VisitID: [id number] [place] [address] 56y, M Registration Date/Time: 05/06/2016 ORDER SHEET Weight: 136.0 kg (stated) Allergies: All narcotics can cause itching- give benadryl before meds , Hydromorphone, Promethazine , Pt had hallucinations when given dilaudid and morphone at hospital same visit , Sulfa Antibiotics GENERAL ORDERS: Chest 1V Urgent (07:05/06/2016 Pinky PRATHER) (Ack 7:27 Power) (7:36 JSanders R.N.) Thinner Sprayer (Continuous) (:05/06/2016 Pinky PRATHER) (7:24 JSimbeck R.N.) Cardiac Panel Stat (:05/06/2016 Pinky PRATHER) (Ack 7:27 Power) (8:06 JSanders R.N.) BNP Urgent (07:05/06/2016 Pinky PRATHER) (Ack 7:27 Power) (8:06 JSanders R.N.) Oxygen (2 L/min) (NC) (07:05/06/2016 Pinky PRATHER) (7:24 JSimbeck R.N.) Pulse oximeter (:05/06/2016 Pinky PRATHER) (7:24 JSimbeck R.N.) EKG - ER Stat (07:05/06/2016 Pinky PRATHER) (Ack 7:27 Power) (7:30 TBergley) ABG (G) Urgent (07:05/06/2016 Pinky PRATHER) (Ack 7:28 Power) (7:35 JSimbeck R.N.) D-Dimer Urgent (07:43 05/06/2016 Pinky PRATHER) (Ack 7:46 Power) (8:06 JSanders R.N.) Lactate, Serum Urgent (07:46 05/06/2016 Pinky PRATHER) (Ack 7:51 Power) (8:06 JSanders R.N.) PCT (Procalcitonin) Urgent (07:46 05/06/2016 Pinky PRATHER) (Ack 7:51 Power) (8:06 Eldons R.N.) Blood Culture (No) (N/A) Urgent (07:48 05/06/2016 Pinky PRATHER) (Ack 7:51 Power) (8:06 Eldons R.N.) VQ Scan Urgent (09:18 05/06/2016 Pinky PRATHER) (Ack 10:02 Power) (14:58 Eldons R.N.) MEDICATION ORDERS: Lovenox Subcut 1 mg/kg (NOW) (09:18 05/06/2016 Pinky PRATHER) (9:32 Daron R.N.) IV FLUIDS: IV Saline Lock (07:22 05/06/2016 Pinky PRATHER) (7:39 Daron R.N.) Solu-MEDROL IV 80 mg (NOW) (07:33 05/06/2016 Pinky PRATHER) (7:41 Daron R.N.) Levaquin IV 750 mg/150 mL (NOW) (08:10 05/06/2016 Pinky PRATHER) (8:42 Daron R.N.) IV NS : initial bolus 500 mL (1000 mL/hr), then 250 mL/hr for 4h (NOW); Routine (09:04 05/06/2016 Pinky PRATHER) (9:20 Eldons R.N.) ORDER SHEET NOTES: [Electronically signed by Hailey Moran R.N. (14:59 05/06/2016)] [Electronically signed by Christin Long MD (18:39 05/06/2016)] [Electronically locked/signed by Hailey Moran R.N. (14:59 05/06/2016)]
[2016-05-06] MEDS ORDERED: NORVASC5 MG PO ×2 (14:14)
[2016-05-06] MEDS ORDERED: DIPHENHYDRAMINE25 M1 PO ×2 (14:15)
[2016-05-06] MEDS ORDERED: CYMBALTA20 MG PO ×2 (14:16)
[2016-05-06] MEDS ORDERED: LOPERAMIDE HCL2 M1 PO ×2 (14:17)
[2016-05-06] MEDS ORDERED: NEURONTIN300 MG PO ×2 (14:17)
[2016-05-06] MEDS ORDERED: LEVAQUIN750 MG PO ×2 (14:17)
[2016-05-06] MEDS ORDERED: SYMBICORT1 AE1 ×2 (14:18)
[2016-05-06] MEDS ORDERED: OMEPRAZOLE20 M1 PO ×2 (14:18)
[2016-05-06] MEDS ORDERED: SYSTANE ×2 (14:19)
--- NOTE | 2016-05-06 16:19 | History & Physical Report ---
Information Source Information Source: Self Reliability: Good History Chief Complaint shortness of breath History of Present Illness Patient is a 56 year old male with a pmh of diabetic ulcers, diabetes mellitus, hypertension, and asthma that is presenting with a one day history of shortness of breath. Patient had been feeling slightly feverish for one day, but did not have any associated symptoms. Patient cliams that he was having occasional rhinorrhea but not much else. Patient was attempting to use the bathroom in his home that is undergoing renovations, and on his way back to his temporary trailer the patient had a sudden onset of shortness of breath and debilitating anxiety. Patient felt as if he couldnt draw in a breath and he decided to lay on the ground in order to feel better. Patient was found by his who brought him inside and called EMS. Patient was brought into [facility] via ems, patient upon arrival was found to be hypoxic and given the current findings the patient was given a VQ scan which was ultimately negative. Patient History 1. Pneumonia 2. Chronic osteomyelitis of left foot 3. HYPERTENSION 4. DIABETES 5. Depression Social History Patient lives in a trailer with his while his house is undergoing repairs. 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 He does not smoke, drink or use illicit substances. Patient is up to date on all his regular health maintenance visits. Family History PATIENT (NONCONTRIBUTORY TO PATIENT'S ILLNESS.). Medications and Allergies Medications Home Medications AmLODIPine Besylate Oral 5 mg, 2x a day Amoxicillin (not sure of dose) BID Carvedilol Oral (12.5 mg) 1 tablet, BID DiphenhydrAMINE HCl Oral DULoxetine HCl Oral Gabapentin Enacarbil ER Oral Hydrochlorothiazide Oral 50 mg, daily Levaquin Oral 750 mg, daily Loperamide HCl Oral Losartan Potassium Oral Omeprazole Oral 20 mg, daily OxyCODONE HCl ER Oral 15mg BID Current Medications Sig/Fei Start time Last Medication Dose Route Stop Time Status Admin Duloxetine HCl 30 MG DAILY 05/07 899 AC PO Hydrochlorothiazide 50 MG DAILY 05/07 899 AC PO Losartan Potassium 25 MG DAILY 05/07 899 AC PO Pantoprazole Sodium 40 MG DAILY@0600 05/07 06 AC IV Amlodipine Besylate 5 MG BID 05/06 2099 AC PO Carvedilol 12.5 MG BID 05/06 2099 AC PO Gabapentin 300 MG BID 03/18 2100 AC PO Oxycodone HCl 15 MG BID 05/06 2100 AC PO Azithromycin 500 MG Q24H 05/06 1800 AC 05/06 Sodium Chloride 250 ML IV 1834 Ceftriaxone Sodium/ 50 ML Q24H 05/06 1700 AC 05/06 Dextrose IV 1806 Insulin Human Lispro See Dose ACHS 05/06 1630 AC 05/06 Insts (1) SC 1705 Acetaminophen 650 MG Q4H PRN 05/06 1615 AC PO Albuterol/Ipratropium 3 ML RTQ6H PRN 05/06 1615 AC IN Oxycodone HCl 5 MG Q4H PRN 05/06 1615 AC PO Sodium Chloride 1,000 ML ASDIRECTED 05/06 1615 AC IV Sodium Chloride 1,000 ML ASDIRECTED 05/06 0930 AC 05/06 IV 1618 Dose Instructions: (1)Insulin Human Lispro: LOW DOSE: ACCUCHECK AND SLIDING SCALE >>To change sliding scale DISCONTINUE this order and enter a NEW order. Thanks< Allergies Coded Allergies: Bee Venom (Severe, BEE STINGS 06/21/15) Sulfa Drugs (Severe, RASH HIVES 06/21/15) Promethazine (Severe, DISORIENTED, HALLUCINATIONS, TWITCHING 06/21/15) Hydromorphone (From DILAUDID) (Intermediate, SEVERE ITCHING 06/21/15) patient states pills cause itching IV dilaudid is OK Review of Systems Constitutional Denies: Fever, Chills, Sweats, Weakness, Malaise, Other. Eyes Denies: Pain, Vision Change, Conjunctival Inflammation, Eyelid Inflammation, Redness, Other. ENT Denies: Ear Pain, Ear Discharge, Nose Pain, Nasal Discharge, Nasal Congestion, Mouth Pain, Mouth Swelling, Throat Pain, Throat Swelling, Other. Respiratory Cough, SOB w/exertion, Wheezing. Denies: Dry, Hemoptysis, Pleuritic Pain, Sputum, Other. Cardiovascular Denies: Chest Pain, Palpitations, Orthopnea, PND, Edema, Light-headedness, Other. Gastrointestinal Denies: Nausea, Vomiting, Abdominal Pain, Diarrhea, Constipation, Melena, Hematochezia, Other. Genitourinary Denies: Dysuria, Frequency, Incontinence, Hematuria, Retention, Other. Musculoskeletal Denies: Neck Pain, Shoulder Pain, Arm Pain, Back Pain, Hand Pain, Leg Pain, Foot Pain, Other. Skin Denies: Rash, Lesions, Jaundice, Bruising, Other. Neurological Denies: Weakness, Numbness, Incoordination, Change in speech, Confusion, Seizures, Other. Physical Exam Vital Signs / I&Os Vital Signs Date Time Temp Pulse Resp B/P Pulse O2 O2 Flow FiO2 Ox Delivery Rate 05/06 1801 98.2 83 22 135/47 93 Nasal 2.0 Cannula 05/06 1722 2.0 05/06 1715 NC/FT 2.0 05/06 1700 79 17 157/71 94 Nasal 2.0 Cannula 05/06 1600 98.6 82 18 114/63 98 Nasal 2.0 Cannula 05/06 0826 15.0 General Appearance Alert, Oriented X3, No acute distress HEENT Normal exam, PERRLA, EOMI, Moist mucous membranes Lungs Normal air movement, - bilateral ronchi in the bases Cardiovascular Regular rate and rhythm, No murmurs, gallops, rubs Abdomen Soft, No tenderness, No rebound, No masses, No hepatosplenomegaly Extremities No edema, Normal pulses, No tenderness, Strength = upper ext's, Strength = lower ext's, - transmetarsal amputation of the left foot, with a non healin ulcer at the tip, no exposed bone, no fluctance, no evidence of erythema - multiple toe amputations on the right - looks appropriate Skin - wound as described above Neurological Normal speech, Normal tone, Sensation intact, Cranial nerves intact , Strength 5/5 x4 ext's, No lateralizing signs Psych/Mental Status Mood normal, Confused LAB Results Laboratory Tests 05/06 05/06 05/06 05/06 05/06 0722 0745 0745 0745 0745 Blood Gas Sample Site RR Total CO2 (24.0 - 30.0 mmol/L) 32.7 ABG pH (7.35 - 7.45) 7.40 ABG pCO2 at Pt Temp (35 - 45 mmHg) 50.4 ABG pO2 at Pt Temp (80.0 - 100.0 mmHg) 53.2 ABG HCO3 (20.0 - 26.0 mmol/L) 31.2 ABG O2 Sat Calc/Ko (95.1 - 100.0 %) 87.9 ABG Base Excess (-6.0 - -6.0 mmol/L) 5.6 ABG Reduced Hgb (%) 11.9 ABG Carboxyhemoglobin (0.5 - 1.5 %) 2.1 ABG Methemoglobin (0.4 - 1.5 %) -0.2 Khris Test YES Other Total Hgb (14.0 - 18.0 g/dL) 14.1 A-a O2 Gradient (7.0 - 14.0 mmHg) 114.6 Hgb O2 Saturation (95.0 - 100.0 %) 86.2 Respiration Rate (/MIN) 26 O2 Liters/Min (0 - 20 L/MIN) 3 Vent Mode NC FiO2 (20 - 101 %) 0.32 Chemistry Plasma Sodium (136 - 145 mmol/L) 141 Plasma Potassium (3.5 - 5.1 mmol/L) 3.8 Plasma Chloride (98 - 107 mmol/L) 101 CO2 (Enzymatic) (21 - 32 mmol/L) 29 BUN (7 - 18 mg/dL) 28 Creatinine (0.6 - 1.3 mg/dL) 1.5 Est GFR ( Amer) (mL/min) >60 Est GFR (Non-Af Amer) (mL/min) 51.64 Glucose (70 - 110 mg/dL) 303 Lactic Acid (0.4 - 2.0 mmol/L) 3.0 Plasma Calcium (8.5 - 10.1 mg/dL) 9.1 Plasma Magnesium (1.8 - 2.4 mg/dL) 1.4 Total Bilirubin (0.0 - 1.0 mg/dL) 0.6 AST (15 - 37 U/L) 15 ALT (12 - 78 U/L) 15 Alkaline Phosphatase (46 - 116 U/L) 133 Creatine Kinase (24 - 260 U/L) 46 Troponin (0.00 - 1.5 ng/mL) <0.05 B-Natriuretic Peptide (5 - 100 pg/ml) 35.2 Total Protein (6.4 - 8.2 g/dL) 8.2 Albumin (3.3 - 5.0 g/dL) 3.2 Procalcitonin (0 - 0.5 ng/mL) <0.5 Coagulation D-Dimer, Quantitative (0.27 - 0.52 ug/mLFEU) 1.75 Hematology WBC (4.5 - 11.5 K/uL) 24.5 RBC (4.50 - 5.90 M/uL) 5.01 Hgb (13.5 - 17.5 gm/dL) 14.2 Hct (41.0 - 53.0 %) 44.7 MCV (80 - 100 fL) 89 MCH (26 - 34 pg) 28 RDW (11.6 - 14.8 %) 14.7 Neut % (Auto) (50 - 75 %) 90.1 Lymph % (Auto) (25 - 40 %) 9.0 Cannon % (Auto) (3 - 14 %) 0.2 Eos % (Auto) (0 - 4 %) 0.7 Baso % (Auto) (0 - 2 %) 0 Plt Count, EDTA (150 - 400 K/uL) 450 PUBS MCHC (31 - 37 g/dL) 32 Microbiology Date/Time Procedure - Status Source Growth 05/06 0800 Blood Culture - RECD BLOOD Assessment and Plan Problem List 1. Pneumonia Plan - pt has evidence of bilateral pneumonia on chest xray - V/Q scan was negative however patient did get a dose of lovenox - will start pt on ceftriaxone and azithromycin - will keep patient on nasal cannula to acheive an oxygen saturation of 92% - will provide albuterol nebulizer q6h 2. HYPERTENSION Plan - patient on extensive history of hypertension - will reusme all patients blood pressure medications as pressure allows 3. DIABETES Plan - pt has an established history of diabetes mellitus - patients blood sugars have been appropriate - pt recieved steroids in the ER so his subsequent sugars will be unusually high - pt currenlty on metformn 1000 mg bid - will hold metformin and start sliding scale coverage 4. Chronic osteomyelitis of left foot Plan - patient has evidence of chronic non healing wound on the food. - on exam foot is free of erythema, fluctuance, and discharge - patient has been on amoxicillin for this for the past week - will resume for the time being and look for wound cultures
--- NOTE | 2016-05-06 16:44 | DIAGNOSTIC IMAGING REPORT ---
PROCEDURE: NM PULMONARY PERFUSION W/VENT INDICATION: HYPOXIA AND ELEVATED D-DIMER TECHNIQUE: 42 mCi of technetium-99m DTPA was aerosolized and inhaled. 6 mCi technetium-99m MAA was injected intravenously. Ventilation and perfusion images were obtained in the AP, PA, right lateral, left lateral, COURTNEY, SPANISH, RPO and LPO positions. COMPARISON: Chest x-ray 05/06/2016. FINDINGS: Normal ventilation and perfusion. IMPRESSION: 1. Normal VQ scan. 2. Results discussed with Dr. Wynne
--- NOTE | 2016-05-06 16:44 | DIAGNOSTIC IMAGING REPORT ---
PROCEDURE: NM PULMONARY PERFUSION W/VENT INDICATION: HYPOXIA AND ELEVATED D-DIMER TECHNIQUE: 42 mCi of technetium-99m DTPA was aerosolized and inhaled. 6 mCi technetium-99m MAA was injected intravenously. Ventilation and perfusion images were obtained in the AP, PA, right lateral, left lateral, COURTNEY, BULGARIAN, RPO and LPO positions. COMPARISON: Chest x-ray 05/06/2016. FINDINGS: Normal ventilation and perfusion. IMPRESSION: 1. Normal VQ scan. 2. Results discussed with Dr. Wynne
--- NOTE | 2016-05-06 18:39 | ED DISCHARGE INSTRUCTIONS ---
Patient: CHRISTIN CORDON General Instructions [facility] VisitID: [id number] [place] [address] 56y, M Registration Date/Time: 05/06/2016 Acute dyspnea Bacterial bronchopneumonia with hypoxemia. Vital signs recorded and reviewed; empiric antibiotics given in the ED. Elevated D-dimer r/o PE Pre-renal azotemia. INSTRUCTIONS Warnings: Further evaluation is necessary. ADDITIONAL INFORMATION Dyspnea (Shortness Of Breath) Shortness of Breath (also known as "Dyspnea") is the sense that you can't catch your breath or can't get enough air. Dyspnea can be caused by many different conditions such as: Acute asthma attack Worsening of emphysema (also called "COPD") -- a lung diseasethat is caused by smoking A mucus plug blocks a large air passage in the lung -- this can occur with emphysema or chronic bronchitis Congestive Heart Failure ("CHF") -- when a weak heart muscle allows excess fluid to collect inthe lungs Panic attacks, anxiety -- fear can cause rapid breathing ("hyperventilation") Pneumonia -- infection in the lung tissue Exposure to toxic fumes or smoke Pulmonary embolus (blood clot to the lung) Based on your visit today, the exact cause of your shortness of breath is not certain. Your tests do not show any of the serious causes of dyspnea. Sometimes, further testing is needed to find out if a serious problem exists. Therefore, it is important for you to watch for any new symptoms or worsening of your condition and follow up with your doctor as directed. Home Care: When your symptoms are better, resume your usual activities. If you smoke, you need to stop. Join a stop-smoking program or ask your doctor for help. Follow Up with your doctor or as advised by our staff. Get Prompt Medical Attention if any of the following occur: Increasing shortness of breath or wheezing Redness, pain or swelling in one leg Swelling in both legs or ankles Unexpected weight gain Chest, arm, shoulder, neck or upper back pain Dizziness, weakness or fainting Palpitations (the sense that your heart is fluttering, beating fast or hard) Fever of 100.4F (38C) or higher, or as directed by your healthcare provider Cough with dark colored or bloody sputum (mucus) Pneumonia (Adult) Pneumonia is an infection deep within the lung, in the small air sacs (alveoli). It may be due to a virus or bacteria and is usually treated with an antibiotic. Severe cases require treatment in the hospital. Milder cases can be treated at home. Symptoms usually start to improve during the first2 days of treatment. Home Care: Rest at home for the first 23 days or until you feel stronger. When resuming activity, dont let yourself become overly tired. Avoid exposure to cigarette smoke (yours or others). You may use acetaminophen (Tylenol) or ibuprofen (Motrin, Advil) to control fever or pain, unless another medicine was prescribed. [NOTE: If you have chronic liver or kidney disease or ever had a stomach ulcer or GI bleeding, talk with your doctor before using these medicines.] (Aspirin should never be used in anyone under 18 years of age who is ill with a fever. It may cause severe liver damage.) Your appetite may be poor so a light diet is fine. Keep well hydrated by drinking 68 glasses of fluids per day (water, sport drinks such as Gatorade, sodas without caffeine, juices, tea, soup, etc.). This will help loosen secretions in the lung, making it easier for you to cough up the phlegm (sputum). If you also have heart or kidney disease, check with your doctor before you drink extra amounts of fluids. Finish all antibiotic medicine prescribed, even if you are feeling better after a few days. Follow Up with your doctor in the next 23 days (or as advised) to be sure you are responding properly to the medicine. [NOTE: If you are age 65 or older, or if you have chronic lung disease (asthma, emphysema or COPD), we recommendthe pneumococcal vaccination and a yearlyinfluenzavaccination(flu-shot) every . Ask your doctor about this.] Get Prompt Medical Attention if any of the following occur: Not getting better within the first 48 hours of treatment Increasing shortness of breath or rapid breathing (over 25 breaths/minute) Coughing up blood or increasing chest pain with breathing Fever of 100.4F (38C) oral or higher, not better with fever medication Increasing weakness, dizziness or fainting Increasing thirst or dry mouth Sinus pain, headache or a stiff neck Chest pain not caused by coughing You have been given the following additional information: Dyspnea Pneumonia (Adult) (Electronically signed by Christin Long MD 05/06/2016 18:39)
--- NOTE | 2016-05-06 18:40 | ED MED RECONCILIATION SUMMARY ---
Patient: CHRISTIN CORDON Medication Reconciliation Report [facility] VisitID: [id number] [address] [place] [address] 56y, M Registration Date/Time: 05/06/2016 Weight: 136.0 kg Height/Length: 76 in. BMI: 36.5 ALLERGIES: All narcotics can cause itching- give benadryl before meds , Hydromorphone, Promethazine , Pt had hallucinations when given dilaudid and morphone at hospital same visit , Sulfa Antibiotics The patient's Home Medications are listed below: THE FOLLOWING MEDICATIONS NEED TO BE RECONCILED: AmLODIPine Besylate Oral 5 mg, 2x a day Amoxicillin (not sure of dose) BID Carvedilol Oral (12.5 mg) 1 tablet, BID DiphenhydrAMINE HCl Oral DULoxetine HCl Oral Gabapentin Enacarbil ER Oral Hydrochlorothiazide Oral 50 mg, daily Levaquin Oral 750 mg, daily Loperamide HCl Oral Losartan Potassium Oral Omeprazole Oral 20 mg, daily OxyCODONE HCl ER Oral 15mg BID Symbicort Inhalation Systane Ophthalmic The source(s) of the original Home Medication information: Not obtained. The following Medications were given to the patient in the Emergency Department: SOLU-MEDROL [IVP] IVP 80 mg, administered: 05/06/2016 7:41:00 AM Levaquin [IVPB] IVPB bolus 0, then 750 mg 100 mL/hr, administered: 05/06/2016 8:32:00 AM IV NS IV Fluids bolus 0, then 1000 mL/hr, administered: 05/06/2016 9:10:00 AM Lovenox [Subcutaneous] Subcutaneous 100 mg, administered: 05/06/2016 9:32:00 AM Lovenox [Subcutaneous] Subcutaneous 30 mg, administered: 05/06/2016 9:32:00 AM IV NS IV Fluids bolus 0, then 250 mL/hr, administered: 05/06/2016 11:30:00 AM The following Medications were prescribed to the patient: None.
--- NOTE | 2016-05-06 18:40 | ED MAR SUMMARY ---
..... Medication Administration Record [facility] [address] [place] [address] Patient: CHRISTIN CORDON Visit ID: [id number] 56y, M Weight: 136.0 kg Height/Length: 76 in BMI: 36.5 ALLERGIES: All narcotics can cause itching- give benadryl before meds , Hydromorphone, Promethazine , Pt had hallucinations when given dilaudid and morphone at hospital same visit , Sulfa Antibiotics Given 07:41 05/06/2016 Hailey Moran R.N. Medication Administered: SOLU-MEDROL [IVP] (METHYLPREDNISOLONE SODIUM SUCC), Dose: 80 mg IVP over 2 minute(s), Site: #1 left AC. Medication Ordered: Solu-MEDROL IV 80 mg (NOW). Start 08:32 05/06/2016 Hailey Moran R.N., Stop 10:38 05/06/2016 Hailey Moran R.N. Medication Administered: LEVAQUIN [IVPB] (LEVOFLOXACIN), Dose: 750 mg IVPB over 1.5 hour(s), Rate: 100 mL/hr, Dispensed: 150 mL bag, Site: #1 left AC. Medication Ordered: Levaquin IV 750 mg/150 mL (NOW). Start 09:10 05/06/2016 Hailey Moran R.N., Stop 11:00 05/06/2016 Hailey Moran R.N. Medication Administered: IV NS (SALINE), Dose: IV Fluids over 1 hour(s), Rate: 1000 mL/hr, Dispensed: 1000 mL bag, Site: #1 left AC. Medication Ordered: IV NS : initial bolus 500 mL (1000 mL/hr), then 250 mL/hr for 4h (NOW); Routine. Given 09:05/06/2016 Hailey Moran R.N. Medication Administered: LOVENOX [SUBCUTANEOUS] (ENOXAPARIN SODIUM), Dose: 100 mg Subcutaneous. Medication Ordered: Lovenox Subcut 1 mg/kg (NOW). Given 09:32 05/06/2016 Hailey Moran R.N. Medication Administered: LOVENOX [SUBCUTANEOUS] (ENOXAPARIN SODIUM), Dose: 30 mg Subcutaneous. Medication Ordered: Lovenox Subcut 1 mg/kg (NOW). Start 11:30 05/06/2016 Hailey Moran RRanjana., Stop 14:53 05/06/2016 Hailey Moran R.N. Medication Administered: IV NS (SALINE), Dose: IV Fluids over 4 hour(s), Rate: 250 mL/hr, Dispensed: 1000 mL bag, Site: #1 left . Medication Ordered: IV NS : initial bolus 500 mL (1000 mL/hr), then 250 mL/hr for 4h (NOW); Routine.
--- NOTE | 2016-05-06 18:40 | ED MAR SUMMARY ---
..... Medication Administration Record [facility] [address] [place] [address] Patient: CHRISTIN CORDON Visit ID: [id number] 56y, M Weight: 136.0 kg Height/Length: 76 in BMI: 36.5 ALLERGIES: All narcotics can cause itching- give benadryl before meds , Hydromorphone, Promethazine , Pt had hallucinations when given dilaudid and morphone at hospital same visit , Sulfa Antibiotics Given 07:41 05/06/2016 Hailey Moran R.N. Medication Administered: SOLU-MEDROL [IVP] (METHYLPREDNISOLONE SODIUM SUCC), Dose: 80 mg IVP over 2 minute(s), Site: #1 left AC. Medication Ordered: Solu-MEDROL IV 80 mg (NOW). Start 08:32 05/06/2016 Hailey Moran R.N., Stop 10:38 05/06/2016 Hailey Moran R.N. Medication Administered: LEVAQUIN [IVPB] (LEVOFLOXACIN), Dose: 750 mg IVPB over 1.5 hour(s), Rate: 100 mL/hr, Dispensed: 150 mL bag, Site: #1 left AC. Medication Ordered: Levaquin IV 750 mg/150 mL (NOW). Start 09:10 05/06/2016 Hailey Moran R.N., Stop 11:00 05/06/2016 Hailey Moran R.N. Medication Administered: IV NS (SALINE), Dose: IV Fluids over 1 hour(s), Rate: 1000 mL/hr, Dispensed: 1000 mL bag, Site: #1 left AC. Medication Ordered: IV NS : initial bolus 500 mL (1000 mL/hr), then 250 mL/hr for 4h (NOW); Routine. Given 09:05/06/2016 Hailey Moran R.N. Medication Administered: LOVENOX [SUBCUTANEOUS] (ENOXAPARIN SODIUM), Dose: 100 mg Subcutaneous. Medication Ordered: Lovenox Subcut 1 mg/kg (NOW). Given 09:32 05/06/2016 Hailey Moran R.N. Medication Administered: LOVENOX [SUBCUTANEOUS] (ENOXAPARIN SODIUM), Dose: 30 mg Subcutaneous. Medication Ordered: Lovenox Subcut 1 mg/kg (NOW). Start 11:30 05/06/2016 Hailey Moran RRanjana., Stop 14:53 05/06/2016 Hailey Moran R.N. Medication Administered: IV NS (SALINE), Dose: IV Fluids over 4 hour(s), Rate: 250 mL/hr, Dispensed: 1000 mL bag, Site: #1 left . Medication Ordered: IV NS : initial bolus 500 mL (1000 mL/hr), then 250 mL/hr for 4h (NOW); Routine.
--- NOTE | 2016-05-06 18:40 | ED MED RECONCILIATION SUMMARY ---
Patient: CHRISTIN CORDON Medication Reconciliation Report [facility] VisitID: [id number] [address] [place] [address] 56y, M Registration Date/Time: 05/06/2016 Weight: 136.0 kg Height/Length: 76 in. BMI: 36.5 ALLERGIES: All narcotics can cause itching- give benadryl before meds , Hydromorphone, Promethazine , Pt had hallucinations when given dilaudid and morphone at hospital same visit , Sulfa Antibiotics The patient's Home Medications are listed below: THE FOLLOWING MEDICATIONS NEED TO BE RECONCILED: AmLODIPine Besylate Oral 5 mg, 2x a day Amoxicillin (not sure of dose) BID Carvedilol Oral (12.5 mg) 1 tablet, BID DiphenhydrAMINE HCl Oral DULoxetine HCl Oral Gabapentin Enacarbil ER Oral Hydrochlorothiazide Oral 50 mg, daily Levaquin Oral 750 mg, daily Loperamide HCl Oral Losartan Potassium Oral Omeprazole Oral 20 mg, daily OxyCODONE HCl ER Oral 15mg BID Symbicort Inhalation Systane Ophthalmic The source(s) of the original Home Medication information: Not obtained. The following Medications were given to the patient in the Emergency Department: SOLU-MEDROL [IVP] IVP 80 mg, administered: 05/06/2016 7:41:00 AM Levaquin [IVPB] IVPB bolus 0, then 750 mg 100 mL/hr, administered: 05/06/2016 8:32:00 AM IV NS IV Fluids bolus 0, then 1000 mL/hr, administered: 05/06/2016 9:10:00 AM Lovenox [Subcutaneous] Subcutaneous 100 mg, administered: 05/06/2016 9:32:00 AM Lovenox [Subcutaneous] Subcutaneous 30 mg, administered: 05/06/2016 9:32:00 AM IV NS IV Fluids bolus 0, then 250 mL/hr, administered: 05/06/2016 11:30:00 AM The following Medications were prescribed to the patient: None.
[2016-05-07] VITALS (23 sets, daily range): BP systolic 104–162; BP diastolic 42–84
--- NOTE | 2016-05-07 18:48 | Progress Note ---
Subjective General Patient seen and examined. Patient overall oxygen saturation has improved immensely. Patient otherwise has no other complaints. Constitutional Denies: Fever, Chills, Sweats, Weakness, Malaise, Other. Eyes Denies: Pain, Vision Change, Conjunctival Inflammation, Eyelid Inflammation, Redness, Other. Respiratory Cough, SOB w/exertion, Wheezing. Denies: Dry, Hemoptysis, Pleuritic Pain, Sputum, Other. Cardiovascular Denies: Chest Pain, Palpitations, Orthopnea, PND, Edema, Light-headedness, Other. Gastrointestinal Denies: Nausea, Vomiting, Abdominal Pain, Diarrhea, Constipation, Melena, Hematochezia, Other. Genitourinary Denies: Dysuria, Frequency, Incontinence, Hematuria, Retention, Other. Musculoskeletal Denies: Neck Pain, Shoulder Pain, Arm Pain, Back Pain, Hand Pain, Leg Pain, Foot Pain, Other. Skin Denies: Rash, Lesions, Jaundice, Bruising, Other. Neurological Denies: Weakness, Numbness, Incoordination, Change in speech, Confusion, Seizures, Other. Physical Exam Vital Signs / I&Os Vital Signs Date Time Temp Pulse Resp B/P Pulse O2 O2 Flow FiO2 Ox Delivery Rate 05/07 1807 97.7 64 17 143/69 93 Mask 5.0 05/07 1718 97.9 88 17 131/68 96 Mask 5.0 05/07 1613 97.5 74 21 133/65 94 Mask 5.0 05/07 1530 5.0 05/07 1502 98.1 67 17 144/70 98 Mask 5.0 05/07 1437 98.4 63 17 109/42 93 Mask 5.0 05/07 1300 98.1 64 19 114/55 97 Mask 5.0 05/07 1200 67 17 135/73 97 Mask 5.0 05/07 1100 72 17 127/62 98 Mask 5.0 05/07 1011 85 21 104/65 96 Mask 5.0 05/07 1008 97.5 66 21 113/47 93 Mask 5.0 05/07 0914 Mask 5.0 05/07 0852 75 03/ 0843 98.6 05/07 0842 68 20 162/75 94 Nasal 3.0 Cannula 05/07 0745 Nasal 3.0 Cannula 05/07 0640 98.8 71 26 161/84 97 Nasal 3.0 Cannula 05/07 0500 61 14 118/55 95 Nasal 3.0 Cannula 05/07 0400 65 12 123/59 95 Nasal 3.0 Cannula 05/07 0300 65 14 111/42 95 Nasal 3.0 Cannula 05/07 0200 98.4 67 15 136/61 97 Nasal 2.0 Cannula 05/07 0100 68 16 118/51 97 Nasal 2.0 Cannula 05/07 0000 64 17 127/60 96 Nasal 2.0 Cannula 05/06 2300 67 19 114/43 96 Nasal 2.0 Cannula 05/06 2200 65 14 128/43 96 Nasal 2.0 Cannula 05/06 2100 99.0 77 21 110/70 94 Nasal 2.0 Cannula 05/06 2034 2.0 05/07 2007 99 05/06 2000 86 20 123/74 95 Nasal 2.0 Cannula 05/06 1954 2.0 05/06 1948 Nasal 2.0 Cannula 05/06 1900 81 19 149/66 96 Nasal 2.0 Cannula I&O 05/06 0800 05/06 1600 05/07 0000 Intake Total 700 Output Total 300 Balance 400 General Appearance Alert, Oriented X3, No acute distress HEENT Atraumatic, EOMI, Moist mucous membranes Lungs Normal exam, Clear to auscultation, Normal air movement Cardiovascular Regular rate and rhythm, Normal S1 and S2, No murmurs, gallops, rubs Abdomen Soft, No tenderness Extremities No clubbing, No edema, Normal pulses, No tenderness Neurological Normal speech, Normal tone, Sensation intact, Cranial nerves intact , No lateralizing signs Psych/Mental Status Mood normal LAB Results Laboratory Tests 05/075 Chemistry Plasma Sodium (136 - 145 mmol/L) 133 Plasma Potassium (3.5 - 5.1 mmol/L) 4.3 Plasma Chloride (98 - 107 mmol/L) 103 CO2 (Enzymatic) (21 - 32 mmol/L) 29 BUN (7 - 18 mg/dL) 35 Creatinine (0.6 - 1.3 mg/dL) 1.4 Est GFR ( Amer) (mL/min) >60 Est GFR (Non-Af Amer) (mL/min) 55.92 Glucose (70 - 110 mg/dL) 142 Plasma Calcium (8.5 - 10.1 mg/dL) 8.4 Total Bilirubin (0.0 - 1.0 mg/dL) 0.3 AST (15 - 37 U/L) 11 ALT (12 - 78 U/L) 13 Alkaline Phosphatase (46 - 116 U/L) 88 Total Protein (6.4 - 8.2 g/dL) 7.3 Albumin (3.3 - 5.0 g/dL) 2.7 Hematology WBC (4.5 - 11.5 K/uL) 19.6 RBC (4.50 - 5.90 M/uL) 3.85 Hgb (13.5 - 17.5 gm/dL) 11.0 Hct (41.0 - 53.0 %) 34.2 MCV (80 - 100 fL) 89 MCH (26 - 34 pg) 29 RDW (11.6 - 14.8 %) 15.0 Neut % (Auto) (50 - 75 %) 87.5 Lymph % (Auto) (25 - 40 %) 8.8 [place] % (Auto) (3 - 14 %) 3.5 Eos % (Auto) (0 - 4 %) 0 Baso % (Auto) (0 - 2 %) 0.2 Plt Count, EDTA (150 - 400 K/uL) 298 PUBS MCHC (31 - 37 g/dL) 32 Microbiology Date/Time Procedure - Status Source Growth 05/06 2014 MRSA Screen - RECD NASAL Assessment and Plan Problem List 1. Pneumonia Plan - patients oxygen saturation improved significantly - will c/w ceftriaxone and azithromycin - no growth from wound cultures thus far - will continue to monitor cbc and wbc 2. 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 Depression Plan - c/w home anti-depressents 4. HYPERTENSION Plan - will c/w home dose of anti-hypertensives - currently rate controlled with normal blood pressures 5. DIABETES Plan - c/w sliding scale coverage - blood sugars have been appropriate - carb consistent diet
[2016-05-08] VITALS (12 sets, daily range): BP systolic 121–182; BP diastolic 51–69
--- NOTE | 2016-05-08 18:42 | Progress Note ---
Subjective General Patient seen and examined. Patients overall oxygen requirement is decreasing steadily. Blood work is improving. Constitutional Denies: Fever, Chills, Sweats, Weakness, Malaise, Other. Eyes Denies: Pain. Respiratory Denies: Cough, Dry, SOB w/exertion, Wheezing, Hemoptysis, Pleuritic Pain, Sputum , Other. Cardiovascular Denies: Chest Pain, Palpitations, Orthopnea, PND, Edema, Light-headedness, Other. Gastrointestinal Denies: Nausea, Vomiting, Abdominal Pain, Diarrhea, Constipation, Melena, Hematochezia, Other. Genitourinary Denies: Dysuria, Frequency, Incontinence, Hematuria, Retention, Other. Musculoskeletal Other (toe lesion ). Denies: Neck Pain, Shoulder Pain, Arm Pain, Back Pain, Hand Pain, Leg Pain, Foot Pain. Skin Denies: Rash, Lesions, Jaundice, Bruising, Other. Neurological Denies: Weakness, Numbness, Incoordination, Change in speech, Confusion, Seizures, Other. Physical Exam Vital Signs / I&Os Vital Signs Date Time Temp Pulse Resp B/P Pulse O2 O2 Flow FiO2 Ox Delivery Rate 05/08 1806 97.5 62 20 144/63 97 Nasal 2.0 Cannula 05/08 1420 98.1 65 20 130/51 92 Nasal 2.0 Cannula 05/08 1022 2.0 05/08 1011 97.9 59 20 157/64 97 Oxymask 2.0 05/08 0932 62 05/08 0815 83 18 138/69 93 Oxymask 3.0 05/08 0800 Mask 3.0 05/08 0715 58 145/60 96 Oxymask 3.0 05/08 0626 98.2 63 18 150/68 97 Oxymask 6.0 05/08 0500 55 20 121/62 93 Oxymask 6.0 05/08 0400 97.9 59 23 142/62 92 05/08 0300 55 18 143/59 98 Oxymask 6.0 05/08 0150 Oxymask 6.0 05/08 0112 54 18 144/64 98 Mask 5.0 05/08 0000 54 16 154/64 96 Mask 5.0 05/07 2300 54 133/63 05/07 2206 5.0 05/07 2201 97.5 60 18 160/78 96 Mask 5.0 03/19 2200 Nasal Cannula 05/07 2117 67 05/07 2104 98.1 62 12 145/66 99 Mask 5.0 05/07 2001 98.1 59 19 120/54 94 Mask 5.0 05/07 1944 5.0 05/07 190 97.7 61 18 134/60 97 Mask 5.0 I&O 05/07 0800 05/07 1600 05/08 0000 Intake Total 9807 412 5577 Output Total 400 1880 1800 Balance 1280 -900 1234 General Appearance Alert, Oriented X3, No acute distress Lungs Clear to auscultation, Normal air movement Cardiovascular Regular rate and rhythm, Normal S1 and S2, No murmurs, gallops, rubs Abdomen Soft, No tenderness, No hepatosplenomegaly Extremities No edema, Normal pulses, Strength = upper ext's, Strength = lower ext's Skin No Breakdown Neurological Normal speech, Cranial nerves intact, Strength 5/5 x4 ext's, No lateralizing signs Psych/Mental Status Mood normal LAB Results Laboratory Tests 05/08 05/08 0400 0400 Chemistry Plasma Sodium (136 - 145 mmol/L) 140 Plasma Potassium (3.5 - 5.1 mmol/L) 4.3 Plasma Chloride (98 - 107 mmol/L) 105 CO2 (Enzymatic) (21 - 32 mmol/L) 33 BUN (7 - 18 mg/dL) 34 Creatinine (0.6 - 1.3 mg/dL) 1.2 Est GFR ( Amer) (mL/min) >60 Est GFR (Non-Af Amer) (mL/min) >60 Glucose (70 - 110 mg/dL) 125 Lactic Acid (0.4 - 2.0 mmol/L) 0.7 Plasma Calcium (8.5 - 10.1 mg/dL) 8.7 Plasma Magnesium (1.8 - 2.4 mg/dL) 2.0 Total Bilirubin (0.0 - 1.0 mg/dL) 0.2 AST (15 - 37 U/L) 12 ALT (12 - 78 U/L) 15 Alkaline Phosphatase (46 - 116 U/L) 80 Total Protein (6.4 - 8.2 g/dL) 7.3 Albumin (3.3 - 5.0 g/dL) 2.7 Hematology WBC (4.5 - 11.5 K/uL) 10.1 RBC (4.50 - 5.90 M/uL) 3.89 Hgb (13.5 - 17.5 gm/dL) 11.1 Hct (41.0 - 53.0 %) 34.9 MCV (80 - 100 fL) 90 MCH (26 - 34 pg) 29 RDW (11.6 - 14.8 %) 15.4 Neut % (Auto) (50 - 75 %) 61.6 Lymph % (Auto) (25 - 40 %) 28.2 [place] % (Auto) (3 - 14 %) 6.6 Eos % (Auto) (0 - 4 %) 3.4 Baso % (Auto) (0 - 2 %) 0.2 Plt Count, EDTA (150 - 400 K/uL) 285 PUBS MCHC (31 - 37 g/dL) 32 Assessment and Plan Problem List 1. Pneumonia Plan - will c/w ceftriaxone and azithromycin - oxygen requirement is decreasing steadily - will continue to monitor blood work 2. Chronic osteomyelitis of left foot Plan - pts foot examined - chronic nonhealing ulcer on the anterior aspect - will restart patients amoxicilllin 3. Depression Plan c/w home medications 4. DIABETES Plan c/w sliding scale coverage 5. HYPERTENSION Plan - good response with home medications - will c/w home meds
[2016-05-09 02:36] VITALS: BP 154/74
[2016-05-09 06:41] VITALS: BP 160/67
--- NOTE | 2016-05-09 07:12 | Progress Note ---
Subjective General Note Date: May 09, 2016 Admission Date: May 06, 2016 Hospital Day: 4 PCP: Harley Caldwell M.D. Status: Inpatient Advanced Directive: FULL CODE Room: 301 Brief History: The patient is a 56-year-old white male with a significant past medical history of diabetes mellitus, chronic diabetic foot ulcer, hypertension, asthma, depression, who presented to [facility] emergency room on the day of admission secondary to complaints of shortness of breath. [facility] ER evaluation was consistent with multilobar pneumonia. Secondary to the above, the patient was admitted by Abram Wynne M.D. for further evaluation and treatment. For other history present illness, past medical history, family history, social history, review of systems, and admission physical examination please see the patient's history and physical examination and ER visit note in the patient's medical record. Subjective: The patient states she is doing well today. No complaints. O2 sats normal on room air with ambulation. No shortness of breath. States ready for discharge Patient requests: None Medications and Allergies Medications Current Medications Sig/Fei Start time Last Medication Dose Route Stop Time Status Admin Pantoprazole Sodium 40 MG 0600 05/09 0600 AC 05/09 Sesquihydrate PO 0538 Amoxicillin 250 MG BID 05/08 1033 AC 05/08 PO 211 Azithromycin 500 MG Q24H 05/07 1000 AC 05/08 Sodium Chloride 250 ML IV 1025 Ceftriaxone Sodium/ 50 ML Q24H 05/07 0900 AC 05/08 Dextrose IV 0938 Duloxetine HCl 30 MG DAILY 05/07 09 AC 05/08 PO 0932 Hydrochlorothiazide 50 MG DAILY 05/07 09 AC 05/08 PO 0932 Losartan Potassium 25 MG DAILY 05/07 899 AC 05/08 PO 0932 Magnesium Chloride 535 MG TID 05/07 0715 AC 05/09 PO 0538 Diphenhydramine HCl 25 MG Q8H PRN 05/07 0515 AC 05/09 PO 0538 Amlodipine Besylate 5 MG BID 05/06 2099 AC 05/08 PO 2108 Carvedilol 12.5 MG BID 05/06 2099 AC 05/08 PO 2108 Gabapentin 300 MG BID 05/06 2099 AC 05/08 PO 2108 Oxycodone HCl 15 MG BID 05/06 2099 AC 05/08 PO 2109 Insulin Human Lispro See Dose ACHS 05/06 1630 AC 05/08 Insts (1) SC 1705 Acetaminophen 650 MG Q4H PRN 05/06 161 AC PO Albuterol/Ipratropium 3 ML RTQ6H PRN 05/06 161 AC 05/07 IN 2206 Oxycodone HCl 5 MG Q4H PRN 05/06 1615 AC 05/08 PO 0605 Sodium Chloride 1,000 ML ASDIRECTED 05/06 161 AC 05/08 IV 2050 Dose Instructions: (1)Insulin Human Lispro: LOW DOSE: ACCUCHECK AND SLIDING SCALE >>To change sliding scale DISCONTINUE this order and enter a NEW order. Thanks< Allergies Coded Allergies: Bee Venom (Severe, BEE STINGS 06/21/15) Sulfa Drugs (Severe, RASH HIVES 06/21/15) Promethazine (Severe, DISORIENTED, HALLUCINATIONS, TWITCHING 06/21/15) Hydromorphone (From DILAUDID) (Intermediate, SEVERE ITCHING 06/21/15) patient states pills cause itching IV dilaudid is OK Physical Exam Vital Signs / I&Os Vital Signs Date Time Temp Pulse Resp B/P Pulse O2 O2 Flow FiO2 Ox Delivery Rate 05/09 0641 98.2 59 16 160/67 96 Nasal 2.0 Cannula 05/09 0507 2.0 05/09 0236 98.1 59 18 154/74 97 Nasal 2.0 Cannula 05/08 2134 Nasal 2.0 Cannula 05/08 2114 77 20 182/68 98 Nasal 2.0 Cannula 05/08 2109 77 05/08 2015 93 05/08 1924 2.0 05/08 1806 97.5 62 20 144/63 97 Nasal 2.0 Cannula 05/08 1420 98.1 65 20 130/51 92 Nasal 2.0 Cannula 05/08 1022 2.0 05/08 1011 97.9 59 20 157/64 97 Oxymask 2.0 05/08 0932 62 05/08 0815 83 18 138/69 93 Oxymask 3.0 05/08 0800 Mask 3.0 05/08 0715 58 145/60 96 Oxymask 3.0 I&O 05/09 0000 05/08 1600 05/08 0800 Intake Total 1802 1063 1750 Output Total 2450 1775 1600 Balance -648 -712 150 General Appearance Alert, Oriented X3, Cooperative, No acute distress Lungs scattered rhonchi. No rales. Cardiovascular Regular rate and rhythm, Normal S1 and S2 Extremities No cyanosis, No clubbing Neurological Cranial nerves intact, No lateralizing signs Psych/Mental Status Mental status normal, Mood normal LAB Results Laboratory Tests 05/09 0440 Chemistry Plasma Sodium (136 - 145 mmol/L) 140 Plasma Potassium (3.5 - 5.1 mmol/L) 3.9 Plasma Chloride (98 - 107 mmol/L) 102 CO2 (Enzymatic) (21 - 32 mmol/L) 31 BUN (7 - 18 mg/dL) 27 Creatinine (0.6 - 1.3 mg/dL) 1.1 Est GFR ( Amer) (mL/min) >60 Est GFR (Non-Af Amer) (mL/min) >60 Glucose (70 - 110 mg/dL) 123 Plasma Calcium (8.5 - 10.1 mg/dL) 8.9 Total Bilirubin (0.0 - 1.0 mg/dL) 0.3 AST (15 - 37 U/L) 10 ALT (12 - 78 U/L) 15 Alkaline Phosphatase (46 - 116 U/L) 87 Total Protein (6.4 - 8.2 g/dL) 7.6 Albumin (3.3 - 5.0 g/dL) 2.9 Coagulation INR (0.8 - 1.2) 1.0 Hematology WBC (4.5 - 11.5 K/uL) 10.4 RBC (4.50 - 5.90 M/uL) 4.14 Hgb (13.5 - 17.5 gm/dL) 11.7 Hct (41.0 - 53.0 %) 36.7 MCV (80 - 100 fL) 89 MCH (26 - 34 pg) 28 RDW (11.6 - 14.8 %) 14.7 Neut % (Auto) (50 - 75 %) 61.4 Lymph % (Auto) (25 - 40 %) 26.1 [place] % (Auto) (3 - 14 %) 6.1 Eos % (Auto) (0 - 4 %) 5.8 Baso % (Auto) (0 - 2 %) 0.6 Plt Count, EDTA (150 - 400 K/uL) 328 PUBS MCHC (31 - 37 g/dL) 32 Assessment and Plan Problem List 1. Pneumonia Plan -Much improved. -Afebrile, normal WBC -No O2 requirement -Discharge on Augmentin/Levaquin. -Follow up with PCP this week 2. Chronic osteomyelitis of left foot Plan -Stable -Outpatient follow-up with ID/podiatry -Follow up with wound care clinic on discharge 3. Depression Plan -Stable -Continue outpatient medical regimen -Follow up with PCP 4. Diabetes mellitus Status Chronic Onset Date Unknown Plan -Blood sugar well controlled -Continue metformin. -Outpatient follow-up with PCP. 5. Hypertension Status Chronic Onset Date Unknown Plan -Stable -Continue present therapy Current status: Fair, improved Anticipated discharge date: Anticipated discharge this p.m. or in a.m. Anticipated discharge placement: Home Patient care time: Time spent in chart review, patient interview, physical exam, CPOE, and care documentation: Greater than 30 minutes Visit to patient today: 2 Complexity of care: Moderate E&M Codes Discharge: Inpt >30 min spent/[id number]
[2016-05-09 10:15] VITALS: BP 172/84
[2016-05-09 15:01] VITALS: BP 157/69
--- NOTE | 2016-05-09 16:23 | Provider's Discharge Care Plan ---
Problem, Goal, Plan Problem List 1. Pneumonia Goals: Improve disease control, Prevent disease progress Instructions: Follow up as directed, Take meds as directed 2. Diabetes mellitus Goals: Improve disease control, Prevent disease progress Instructions: Follow up as directed, Take meds as directed, monitor blood glucose at meals and bedtime 3. Chronic osteomyelitis of left foot Goals: Improve disease control, Prevent disease progress Instructions: Follow up as directed, Take meds as directed
[2016-05-09] MEDS ORDERED: METFORMIN HCL500 MG PO ×2 (16:25)
--- NOTE | 2016-05-09 16:29 | Discharge Summary ---
Discharge Summary Report Admit Date 05/06/16 Discharge Date 05/09/16 Admission Diagnosis 1. Pneumonia Discharge Diagnosis 1. Pneumonia Brief History The patient is a 56-year-old white male with a significant past medical history of diabetes mellitus, chronic diabetic foot ulcer, hypertension, asthma, depression, who presented to [facility] emergency room on the day of admission secondary to complaints of shortness of breath. [facility] ER evaluation was consistent with multilobar pneumonia. Secondary to the above, the patient was admitted by Abram Wynne M.D. for further evaluation and treatment. For other history present illness, past medical history, family history, social history, review of systems, and admission physical examination please see the patient's history and physical examination and ER visit note in the patient's medical record. Hospital Course The following problems and their management were noted during the patient's hospitalization: 1. Pneumonia The patient was admitted with findings of pneumonia. Initial chest x-ray showed bibasilar pneumonia. Patient treated with IV followed by by mouth antimicrobials. WBC corrected to 10.4 at the time of discharge with no left shift. Patient afebrile for 48 hours prior to discharge. We'll discharge on Levaquin and Augmentin. Patient with normal O2 sats on room air with ambulation. Outpatient follow-up with PCP next week Lab/Imaging Laboratory Tests 05/09 0440 Chemistry Plasma Sodium (136 - 145 mmol/L) 140 Plasma Potassium (3.5 - 5.1 mmol/L) 3.9 Plasma Chloride (98 - 107 mmol/L) 102 CO2 (Enzymatic) (21 - 32 mmol/L) 31 BUN (7 - 18 mg/dL) 27 Creatinine (0.6 - 1.3 mg/dL) 1.1 Est GFR ( Amer) (mL/min) >60 Est GFR (Non-Af Amer) (mL/min) >60 Glucose (70 - 110 mg/dL) 123 Plasma Calcium (8.5 - 10.1 mg/dL) 8.9 Total Bilirubin (0.0 - 1.0 mg/dL) 0.3 AST (15 - 37 U/L) 10 ALT (12 - 78 U/L) 15 Alkaline Phosphatase (46 - 116 U/L) 87 Total Protein (6.4 - 8.2 g/dL) 7.6 Albumin (3.3 - 5.0 g/dL) 2.9 Coagulation INR (0.8 - 1.2) 1.0 Hematology WBC (4.5 - 11.5 K/uL) 10.4 RBC (4.50 - 5.90 M/uL) 4.14 Hgb (13.5 - 17.5 gm/dL) 11.7 Hct (41.0 - 53.0 %) 36.7 MCV (80 - 100 fL) 89 MCH (26 - 34 pg) 28 RDW (11.6 - 14.8 %) 14.7 Neut % (Auto) (50 - 75 %) 61.4 Lymph % (Auto) (25 - 40 %) 26.1 [place] % (Auto) (3 - 14 %) 6.1 Eos % (Auto) (0 - 4 %) 5.8 Baso % (Auto) (0 - 2 %) 0.6 Plt Count, EDTA (150 - 400 K/uL) 328 PUBS MCHC (31 - 37 g/dL) 32 Discharge Instructions/Meds For other recommendations regarding discharge diet, activity, followup, and discharge medications please see the patient's discharge instructions. Discharge condition: Good, improved Greater than 30 min. was spent in the patient's discharge preparation including discharge interview and physical examination, progress note, discharge instructions, and discharge summary The patient was interviewed and examined on the day of discharge. E&M Codes Discharge: Inpt >30 min spent/[id number]
== END 2016-05-09 16:53 | disposition home or self-care (01) | DRG 139 ==
LOC: ED SRH 07:12 → TRANS SRH 09:02 → CC SRH 16:54
PROVIDERS: ADMIT Emergency Medicine
DX: J18.9 Pneumonia, unspecified organism (principal); R09.02 Hypoxemia; J45.909 Unspecified asthma, uncomplicated; E11.69 Type 2 diabetes mellitus with other specified complication; E11.621 Type 2 diabetes mellitus with foot ulcer; L97.429 Non-pressure chronic ulcer of left heel and midfoot with unspecified severity; M86.672 Other chronic osteomyelitis, left ankle and foot; E11.51 Type 2 diabetes mellitus with diabetic peripheral angiopathy without gangrene; I10 Essential (primary) hypertension; Z79.84 Long term (current) use of oral hypoglycemic drugs; F32.9 Major depressive disorder, single episode, unspecified; F41.9 Anxiety disorder, unspecified; Z89.412 Acquired absence of left great toe; Z89.411 Acquired absence of right great toe; Z89.422 Acquired absence of other left toe(s); Z89.421 Acquired absence of other right toe(s)

== ENCOUNTER 2016-05-09 17:06 | Outpatient (CLI) | payer OTHER ==
[~2016-05-09 17:06] MED LIST changes: +CYMBALTA20 MG PO; +DIPHENHYDRAMINE25 M1 PO; +LOPERAMIDE HCL2 M1 PO; +NEURONTIN300 MG PO; +OMEPRAZOLE20 M1 PO; +SYMBICORT1 AE1; +SYSTANE
--- NOTE | 2016-05-09 18:19 | DIAGNOSTIC IMAGING REPORT ---
PROCEDURE: XR FOOT 3 VIEWS - LEFT INDICATION: NO HEALING WOUND TECHNIQUE: Three views. COMPARISON: Left foot films 12/13/201508/16 and 06/10/2015 FINDINGS: Since previous studies there has been stabilization of the osteolysis with new bone formation. There is a large soft tissue defect. IMPRESSION: 1. No evidence of osteolysis in the metatarsals. New bone formation since the previous study. 2. Large soft tissue defect.
== END 2016-05-09 23:00 ==
LOC: XR SRH 17:06
DX: L97.522 Non-pressure chronic ulcer of other part of left foot with fat layer exposed (principal); Z89.432 Acquired absence of left foot

== ENCOUNTER 2016-05-12 13:21 | Emergency (ER) | payer OTHER ==
--- NOTE | 2016-05-12 14:35 | DIAGNOSTIC IMAGING REPORT ---
PROCEDURE: XR CHEST 1 VIEW INDICATION: SHORTNESS OF BREATH TECHNIQUE: Portable AP view 01:30 p.m. COMPARISON: Chest 12/21/2015 FINDINGS: Lungs are clear. Heart and mediastinum are normal. Thorax is normal. IMPRESSION: 1. Negative chest.
--- NOTE | 2016-05-12 16:38 | ED CLINICAL REPORT ---
Clinical Report - Physicians/Mid Levels [facility] [address] [place] [address] 05/12/2016 13:21 Patient: CHRISTIN CORDON Time Seen: 13:30. Arrived- By private vehicle. Historian- patient. HISTORY OF PRESENT ILLNESS Chief Complaint: DYSPNEA and HISTORY OF CONGESTIVE HEART FAILURE. This started several months ago and is still present and now worse. It was gradual in onset and has been constant and waxing/waning. The dyspnea is described as moderate and is worsened by walking and exertion and is improved with oxygen. No cough, sputum production, chest pain or discomfort or calf pain. No foot swelling, orthopnea, paroxysmal nocturnal dyspnea or palpitations. He has had a subjective fever, wheezing, chills and dyspnea on exertion and experienced sweating episodes. Similar symptoms previously: Recent medical care: The patient was seen recently at this facility and hospitalized. Diagnosis: pneumonia. REVIEW OF SYSTEMS The patient has had fever, chills, muscle aches, fatigue and mild, occasional diarrhea. No abdominal pain, black stools, bloody stools, constipation or nausea. No vomiting or urinary problems. he reports frequent recent bloody noses. All systems otherwise negative, except as recorded above. 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 he has had a chronic non healing ulcer at the surgical site for which she is on Levaquin and he attends the wound care clinic. Problems: Pneumonia. Dyspnea. Congestive Heart Failure. Heart Disease. Lower Extremity Pain. Abrasion(s). Contusion. Fall. Cellulitis. Changed Mental Status. Osteomyelitis. DVT/PE Risk Factors. Peripheral Vascular Disease. Headache. Immunizations. Diabetic Ulcer on R foot. Nephrolithiasis. Hypercholesterolemia. Diabetes Mellitus. Hypertension. Additional Surgeries: Amputation Lower Extremity. Back Surgery. Knee Surgery. Lithotripsy. Partial foot amputation. Toe amputation. Tonsillectomy. Medications: DiphenhydrAMINE HCl Oral. DULoxetine HCl Oral. Gabapentin Enacarbil ER Oral. Hydrochlorothiazide Oral 50 mg, daily. Levaquin Oral 750 mg, daily. Loperamide HCl Oral. Losartan Potassium Oral. Omeprazole Oral 20 mg, daily. OxyCODONE HCl ER Oral 15mg BID . Symbicort Inhalation. Systane Ophthalmic. AmLODIPine Besylate Oral 5 mg, 2x a day. Amoxicillin (not sure of dose) BID . Carvedilol Oral (Tablet 12.5 mg) 1 tablet, BID. Allergies: All narcotics can cause itching- give benadryl before meds . Hydromorphone. ((pills caused itching, but IV dilaudid does ok) ) Promethazine .(itching) Pt had hallucinations when given dilaudid and morphone at hospital same visit . Sulfa Antibiotics.(hives). SOCIAL HISTORY Never smoker. Occasional alcohol use. No drug use. He lives with spouse. Has good social support. FAMILY HISTORY Premature onset heart disease in first-degree relative (father). ADDITIONAL NOTES The nursing notes have been reviewed. PHYSICAL EXAM Vital Signs: 05/12/2016 13:31 BP: 122/67. HR: 74. RR: 24. O2 saturation: 93%. Temp: 98.7 F. Pain level now: 0/10. Have been reviewed. Appearance: Alert. Eyes: Pupils equal, round and reactive to light. ENT: Pharynx normal. Neck: Normal inspection. No jugular venous distention. CVS: Normal heart rate and rhythm. Heart sounds normal. Respiratory: No respiratory distress. Expiratory mild bilateral wheezes in the bases. No rales or rhonchi. Abdomen: Soft and nontender. No organomegaly. Obese. Back: Normal inspection. Skin: Skin warm. Normal skin color. Normal skin turgor. (patient has an ulcerative lesion at the healing wound site from his prior left foot toe amputations. There is no surrounding erythema or increased warmth or tenderness no drainage.). Extremities: Extremities exhibit normal ROM. No calf tenderness. No lower extremity edema. LABS, X-RAYS, AND EKG EKG: Normal EKG. Rate: 64. Changes present when compared to prior EKG. (06 May 2016). Chest X-ray: ( Exam(s): XR CHEST 1 VIEW Date of Exam: 05/12/2016 __ PROCEDURE: XR CHEST 1 VIEW INDICATION: SHORTNESS OF BREATH TECHNIQUE: Portable AP view 01:30 p.m. COMPARISON: Chest 12/21/2015 FINDINGS: Lungs are clear. Heart and mediastinum are normal. Thorax is normal. IMPRESSION: 1. Negative chest.). The X-rays were interpreted by the radiologist and contemporaneously by me. Laboratory Tests: CBC w Diff: (LATONIA: 05/12/2016 14:30) ( [facility] 05/12/2016 14:37) Final results Test Result Flag Units (Reference) WHITE BLOOD COUNT 11.5 K/uL (4.5-11.5) RED BLOOD COUNT 3.98 L M/uL (4.50-5.90) HEMOGLOBIN 11.3 L gm/dL (13.5-17.5) HEMATOCRIT 35.4 L % (41.0-53.0) MEAN CELL VOLUME 89 fL (80-100) MEAN CORPUSCULAR HGB 28 pg (26-34) MEAN CORPUSCULAR HGB CONC 32 g/dL (31-37) RED CELL DISTRIBUTION WIDTH 14.9 H % (11.6-14.8) PLATELET COUNT 344 K/uL (150-400) NEUTROPHIL % 60.8 % (50-75) LYMPH % 23.3 L % (25-40) MONO % 5.6 % (3-14) EOSINOPHIL % 9.8 H % (0-4) BASOPHIL % 0.5 % (0-2) PT with INR: (LATONIA: 05/12/2016 14:30) ( MsgRcvd 05/12/2016 14:49) Final results Test Result Flag Units (Reference) INR 1.0 (0.8-1.2) Low Intensity Therapy: INR 1.5-2.0 PT range 18.5-23.1Mod.Intensity Therapy: INR 2.0-3.0 PT range 23.1-31.5High Intensity Therapy: INR 2.5-3.5 PT range 27.4-35.5High Intensity Therapy 2: INR 3.0-4.0 PT range 31.5-39.3 APTT 30 SECONDS (24-34) BNP: (LATONIA: 05/12/2016 14:30) ( MsgRcvd 05/12/2016 14:57) Final results Test Result Flag Units (Reference) B-TYPE NATRIURETIC PEPTIDE 105 H pg/ml (5-100) [id number]: (LATONIA: 05/12/2016 14:30) ( MsgRcvd 05/12/2016 15:17) Final results Test Result Flag Units (Reference) PROCALCITONIN <0.5 ng/mL (0-0.5) PCT Concentration: Interpretation : Risk/option for action PCT <=0.5 ng/mL : Systemic : Low risk forinfection(sepsis): progression to severeis not likely. : systemic infection.Local bacterial : CAUTION-PCT levelsinfection is : below 0.5 ng/mL do notpossible. : exclude an infection,because localizedinfections (withoutsystemic signs) may beassociated with suchlow levels. If PCT ismeasured very earlyafter a bacterialchallenge (usually <6hours), these valuesmay still be low. Inthis case PCT shouldbe re-assessed 6-24hours later. PCT >0.5 and : Systemic infection: Moderate risk for<= 2 ng/mL : (sepsis) is : progression to severepossible, but : systemic infection.other conditions : The patient should beare known to : closely monitoredelevate PCT. : both clinically andby re-assessing PCTwithin 6-24 hours. PCT > 2 ng/mL : Systemic infection: High risk for(sepsis) is likely: progression to severeunless other : systemic infection.causes are known. : PCT >= 10 ng/mL : Important systemic: High likelihood ofinflammatory : severe sepsis orresponse, almost : septic shock.exclusively due to:severe bacterial :sepsis or septic :shock. : CMP: (LATONIA: 05/12/2016 14:30) ( MsgRcvd 05/12/2016 15:00) Final results Test Result Flag Units (Reference) GLUCOSE 123 H mg/dL (70-110) BUN 41 H mg/dL (7-18) CREATININE 1.7 H mg/dL (0.6-1.3) Estimated GFR 44.70 mL/min Estimated GFR- 54.17 mL/min Note: Persistent reduction over 3 months in eGFR<60 mL/min/1.73 m2 defines CKD. Patients with eGFR values>=60 mL/min/1.73 m2 may also have CKD if evidence ofpersistent proteinuria. Additional information may be foundat www.kidney.org. SODIUM 140 mmol/L (136-145) POTASSIUM 4.8 mmol/L (3.5-5.1) CHLORIDE 103 mmol/L (98-107) CARBON DIOXIDE 32 mmol/L (21-32) CALCIUM 8.4 L mg/dL (8.5-10.1) TOTAL PROTEIN 7.7 g/dL (6.4-8.2) ALBUMIN 3.0 L g/dL (3.3-5.0) BILIRUBIN, TOTAL 0.3 mg/dL (0.0-1.0) ALKALINE PHOSPHATASE 103 U/L (46-116) AST (SGOT) 14 L U/L (15-37) ALT (SGPT) 16 U/L (12-78) LIPASE 103 U/L (73-393) AMYLASE 53 U/L (25-115) CPK 72 U/L (24-260) TROPONIN I <0.05 ng/mL (0.00-1.5) TROPONIN REFERENCE RANGE:<0.1 NEGATIVE0.1-1.5 INDETERMINANT>1.5 POSITIVE ABG: (LATONIA: 05/12/2016 15:36) ( MsgRcvd 05/12/2016 15:47) Final results Test Result Flag Units (Reference) FIO2 0.28 L % (20-101) ABG MODE OF DELIVERY NC MODIFIED CAREN TEST POSITIVE? YES LITERS PER MIN. 2 L/MIN (0-20) ABG PATIENT RESP RATE 18 /MIN ARTERIAL BLOOD GAS SITE RR ARTERIAL BLOOD GAS pH 7.34 L (7.35-7.45) ABG PCO2 59.2 H mmHg (35-45) ABG PO2 53.3 L mmHg (80.0-100.0) ABG BASE EXCESS 5.3 H mmol/L (-6.0--6.0) ABG HCO3 31.8 *H mmol/L (20.0-26.0) ABG TCO2 33.6 H mmol/L (24.0-30.0) ABG NxObE3g 77.5 H mmHg (7.0-14.0) *NOTE: Normal rangeis based on aFIO2 of 21% ABG SAT O2 87.9 L % (95.1-100.0) ABG TOTAL HEMOGLOBIN 11.3 L g/dL (14.0-18.0) ABG O2 HEMOGLOBIN 86.0 L % (95.0-100.0) ABG CARBOXYHEMOGLOBIN 2.3 H % (0.5-1.5) ABG METHEMOGLOBIN -0.1 L % (0.4-1.5) ABG RHEMOGLOBIN 11.8 % . PROGRESS AND PROCEDURES Course of Care: Patient is stable. Discussed case with hospitalist, (Andrea - he says that the patient was discharged here on the for similar issues. They felt that he had a pneumonia. He was started on antibiotics. He is apparently on Levaquin and Augmentin. Dr. Mendez suggests that the patient can be treated as an outpatient. We will attempt to arrange for home oxygen and we'll initiate the patient on antihistamines and steroids.). Reviewed test results and need for additional work-up. Discussed case with patient's primary care provider, (Paulette ibrahim says that his physician's fast food sales assistant Stuart Prakash will see the patient.). Reviewed test results and need for additional work-up. Agreed upon treatment plan and need for patient follow-up. Health care provider will see patient in office. Refers case to other health care provider. Patient/family counseled. Old medical records reviewed. Disposition: Discharged. Condition: stable. CLINICAL IMPRESSION Pressure ulcer on the left foot. Renal insufficiency. Hypoxia. Possible asthma. INSTRUCTIONS Avoid tobacco smoke. (Use 2 L of home oxygen as prescribed and discussed). Warnings: Further evaluation is necessary. GENERAL WARNINGS: Return or contact your physician immediately if your condition worsens or changes unexpectedly, if not improving as expected, or if other problems arise. Your Current Medications: CONTINUE TAKING THE FOLLOWING MEDICATIONS: AmLODIPine Besylate Oral : 5 mg 2x a day. Carvedilol Oral : Tablet 12.5 mg, 1 tablet BID. Diclofenac Sodium ER Oral : 75 mg. DULoxetine HCl Oral : Capsule Delayed Release Particles 20 mg, 1 capsule. Gabapentin Enacarbil ER Oral. Hydrochlorothiazide Oral : 50 mg daily. Losartan Potassium Oral : Tablet 100 mg, 1 tablet daily. MetFORMIN HCl Oral : Tablet 1000 mg, daily. Omeprazole Oral : 20 mg daily. OxyCODONE HCl ER Oral : 15mg BID. Symbicort Inhalation. Systane Ophthalmic. Levaquin Oral : 750 mg daily. Prescription Medications: Albuterol HFA oral inhaler: inhale 2 puffs via spacer every 4 hours as needed. Dispense one (1) unit. No refill. Prednisone 20 mg: take 3 orally every day for 5 days. Dispense fifteen (15). No refills. Zyrtec 10 mg: take 1 tablet orally every day as needed. Dispense twenty (20). No refills. Substitution is permissible. Follow-up: Follow up with a flanging machine operator- as recommended by your primary care physician. Understanding of the discharge instructions verbalized by patient. Follow-up with: Christin Caldwell MD, [facility], , [address], [id number] Follow up Sunday in four days. Call for an appointment. (Electronically signed by Pilo Frank MD 05/12/2016 18:13) Addenda for CHRISTIN CORDON VisitID: [id number] Date: 05/12/2016 05/12/2016 16:29 56 yr old male pt in the ED with chief complained of SOB and Dyspnea with history of COPD. Pt was recently hospitalized for PNA. Pt oxygen sat on room air is 81%. Does not use oxygen at home. MD ordered home oxygen at 2 l per [place]. Will notify [facility] and set up home oxygen. Pt will dc home on portable tank and will call [facility] as soon as he gets home for them to deliver supplies. Tel no is . No further dc needs at this time. Patient with chronic stable condition at discharge. (Electronically signed by Mao Acosta R.N. - 05/12/2016 16:29)
--- NOTE | 2016-05-12 16:38 | ED CLINICAL REPORT ---
Clinical Report - Physicians/Mid Levels [facility] [address] [place] [address] 05/12/2016 13:21 Patient: CHRISTIN CORDON Time Seen: 13:30. Arrived- By private vehicle. Historian- patient. HISTORY OF PRESENT ILLNESS Chief Complaint: DYSPNEA and HISTORY OF CONGESTIVE HEART FAILURE. This started several months ago and is still present and now worse. It was gradual in onset and has been constant and waxing/waning. The dyspnea is described as moderate and is worsened by walking and exertion and is improved with oxygen. No cough, sputum production, chest pain or discomfort or calf pain. No foot swelling, orthopnea, paroxysmal nocturnal dyspnea or palpitations. He has had a subjective fever, wheezing, chills and dyspnea on exertion and experienced sweating episodes. Similar symptoms previously: Recent medical care: The patient was seen recently at this facility and hospitalized. Diagnosis: pneumonia. REVIEW OF SYSTEMS The patient has had fever, chills, muscle aches, fatigue and mild, occasional diarrhea. No abdominal pain, black stools, bloody stools, constipation or nausea. No vomiting or urinary problems. he reports frequent recent bloody noses. All systems otherwise negative, except as recorded above. 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 he has had a chronic non healing ulcer at the surgical site for which she is on Levaquin and he attends the wound care clinic. Problems: Pneumonia. Dyspnea. Congestive Heart Failure. Heart Disease. Lower Extremity Pain. Abrasion(s). Contusion. Fall. Cellulitis. Changed Mental Status. Osteomyelitis. DVT/PE Risk Factors. Peripheral Vascular Disease. Headache. Immunizations. Diabetic Ulcer on R foot. Nephrolithiasis. Hypercholesterolemia. Diabetes Mellitus. Hypertension. Additional Surgeries: Amputation Lower Extremity. Back Surgery. Knee Surgery. Lithotripsy. Partial foot amputation. Toe amputation. Tonsillectomy. Medications: DiphenhydrAMINE HCl Oral. DULoxetine HCl Oral. Gabapentin Enacarbil ER Oral. Hydrochlorothiazide Oral 50 mg, daily. Levaquin Oral 750 mg, daily. Loperamide HCl Oral. Losartan Potassium Oral. Omeprazole Oral 20 mg, daily. OxyCODONE HCl ER Oral 15mg BID . Symbicort Inhalation. Systane Ophthalmic. AmLODIPine Besylate Oral 5 mg, 2x a day. Amoxicillin (not sure of dose) BID . Carvedilol Oral (Tablet 12.5 mg) 1 tablet, BID. Allergies: All narcotics can cause itching- give benadryl before meds . Hydromorphone. ((pills caused itching, but IV dilaudid does ok) ) Promethazine .(itching) Pt had hallucinations when given dilaudid and morphone at hospital same visit . Sulfa Antibiotics.(hives). SOCIAL HISTORY Never smoker. Occasional alcohol use. No drug use. He lives with spouse. Has good social support. FAMILY HISTORY Premature onset heart disease in first-degree relative (father). ADDITIONAL NOTES The nursing notes have been reviewed. PHYSICAL EXAM Vital Signs: 05/12/2016 13:31 BP: 122/67. HR: 74. RR: 24. O2 saturation: 93%. Temp: 98.7 F. Pain level now: 0/10. Have been reviewed. Appearance: Alert. Eyes: Pupils equal, round and reactive to light. ENT: Pharynx normal. Neck: Normal inspection. No jugular venous distention. CVS: Normal heart rate and rhythm. Heart sounds normal. Respiratory: No respiratory distress. Expiratory mild bilateral wheezes in the bases. No rales or rhonchi. Abdomen: Soft and nontender. No organomegaly. Obese. Back: Normal inspection. Skin: Skin warm. Normal skin color. Normal skin turgor. (patient has an ulcerative lesion at the healing wound site from his prior left foot toe amputations. There is no surrounding erythema or increased warmth or tenderness no drainage.). Extremities: Extremities exhibit normal ROM. No calf tenderness. No lower extremity edema. LABS, X-RAYS, AND EKG EKG: Normal EKG. Rate: 64. Changes present when compared to prior EKG. (06 May 2016). Chest X-ray: ( Exam(s): XR CHEST 1 VIEW Date of Exam: 05/12/2016 __ PROCEDURE: XR CHEST 1 VIEW INDICATION: SHORTNESS OF BREATH TECHNIQUE: Portable AP view 01:30 p.m. COMPARISON: Chest 12/21/2015 FINDINGS: Lungs are clear. Heart and mediastinum are normal. Thorax is normal. IMPRESSION: 1. Negative chest.). The X-rays were interpreted by the radiologist and contemporaneously by me. Laboratory Tests: CBC w Diff: (LATONIA: 05/12/2016 14:30) ( [facility] [address] 05/12/2016 14:37) Final results Test Result Flag Units (Reference) WHITE BLOOD COUNT 11.5 K/uL (4.5-11.5) RED BLOOD COUNT 3.98 L M/uL (4.50-5.90) HEMOGLOBIN 11.3 L gm/dL (13.5-17.5) HEMATOCRIT 35.4 L % (41.0-53.0) MEAN CELL VOLUME 89 fL (80-100) MEAN CORPUSCULAR HGB 28 pg (26-34) MEAN CORPUSCULAR HGB CONC 32 g/dL (31-37) RED CELL DISTRIBUTION WIDTH 14.9 H % (11.6-14.8) PLATELET COUNT 344 K/uL (150-400) NEUTROPHIL % 60.8 % (50-75) LYMPH % 23.3 L % (25-40) MONO % 5.6 % (3-14) EOSINOPHIL % 9.8 H % (0-4) BASOPHIL % 0.5 % (0-2) PT with INR: (LATONIA: 05/12/2016 14:30) ( MsgRcvd 05/12/2016 14:49) Final results Test Result Flag Units (Reference) INR 1.0 (0.8-1.2) Low Intensity Therapy: INR 1.5-2.0 PT range 18.5-23.1Mod.Intensity Therapy: INR 2.0-3.0 PT range 23.1-31.5High Intensity Therapy: INR 2.5-3.5 PT range 27.4-35.5High Intensity Therapy 2: INR 3.0-4.0 PT range 31.5-39.3 APTT 30 SECONDS (24-34) BNP: (LATONIA: 05/12/2016 14:30) ( MsgRcvd 05/12/2016 14:57) Final results Test Result Flag Units (Reference) B-TYPE NATRIURETIC PEPTIDE 105 H pg/ml (5-100) [id number]: (LATONIA: 05/12/2016 14:30) ( MsgRcvd 05/12/2016 15:17) Final results Test Result Flag Units (Reference) PROCALCITONIN <0.5 ng/mL (0-0.5) PCT Concentration: Interpretation : Risk/option for action PCT <=0.5 ng/mL : Systemic : Low risk forinfection(sepsis): progression to severeis not likely. : systemic infection.Local bacterial : CAUTION-PCT levelsinfection is : below 0.5 ng/mL do notpossible. : exclude an infection,because localizedinfections (withoutsystemic signs) may beassociated with suchlow levels. If PCT ismeasured very earlyafter a bacterialchallenge (usually <6hours), these valuesmay still be low. Inthis case PCT shouldbe re-assessed 6-24hours later. PCT >0.5 and : Systemic infection: Moderate risk for<= 2 ng/mL : (sepsis) is : progression to severepossible, but : systemic infection.other conditions : The patient should beare known to : closely monitoredelevate PCT. : both clinically andby re-assessing PCTwithin 6-24 hours. PCT > 2 ng/mL : Systemic infection: High risk for(sepsis) is likely: progression to severeunless other : systemic infection.causes are known. : PCT >= 10 ng/mL : Important systemic: High likelihood ofinflammatory : severe sepsis orresponse, almost : septic shock.exclusively due to:severe bacterial :sepsis or septic :shock. : CMP: (LATONIA: 05/12/2016 14:30) ( MsgRcvd 05/12/2016 15:00) Final results Test Result Flag Units (Reference) GLUCOSE 123 H mg/dL (70-110) BUN 41 H mg/dL (7-18) CREATININE 1.7 H mg/dL (0.6-1.3) Estimated GFR 44.70 mL/min Estimated GFR- 54.17 mL/min Note: Persistent reduction over 3 months in eGFR<60 mL/min/1.73 m2 defines CKD. Patients with eGFR values>=60 mL/min/1.73 m2 may also have CKD if evidence ofpersistent proteinuria. Additional information may be foundat www.kidney.org. SODIUM 140 mmol/L (136-145) POTASSIUM 4.8 mmol/L (3.5-5.1) CHLORIDE 103 mmol/L (98-107) CARBON DIOXIDE 32 mmol/L (21-32) CALCIUM 8.4 L mg/dL (8.5-10.1) TOTAL PROTEIN 7.7 g/dL (6.4-8.2) ALBUMIN 3.0 L g/dL (3.3-5.0) BILIRUBIN, TOTAL 0.3 mg/dL (0.0-1.0) ALKALINE PHOSPHATASE 103 U/L (46-116) AST (SGOT) 14 L U/L (15-37) ALT (SGPT) 16 U/L (12-78) LIPASE 103 U/L (73-393) AMYLASE 53 U/L (25-115) CPK 72 U/L (24-260) TROPONIN I <0.05 ng/mL (0.00-1.5) TROPONIN REFERENCE RANGE:<0.1 NEGATIVE0.1-1.5 INDETERMINANT>1.5 POSITIVE ABG: (LATONIA: 05/12/2016 15:36) ( MsgRcvd 05/12/2016 15:47) Final results Test Result Flag Units (Reference) FIO2 0.28 L % (20-101) ABG MODE OF DELIVERY NC MODIFIED CAREN TEST POSITIVE? YES LITERS PER MIN. 2 L/MIN (0-20) ABG PATIENT RESP RATE 18 /MIN ARTERIAL BLOOD GAS SITE RR ARTERIAL BLOOD GAS pH 7.34 L (7.35-7.45) ABG PCO2 59.2 H mmHg (35-45) ABG PO2 53.3 L mmHg (80.0-100.0) ABG BASE EXCESS 5.3 H mmol/L (-6.0--6.0) ABG HCO3 31.8 *H mmol/L (20.0-26.0) ABG TCO2 33.6 H mmol/L (24.0-30.0) ABG [id number] 77.5 H mmHg (7.0-14.0) *NOTE: Normal rangeis based on aFIO2 of 21% ABG SAT O2 87.9 L % (95.1-100.0) ABG TOTAL HEMOGLOBIN 11.3 L g/dL (14.0-18.0) ABG O2 HEMOGLOBIN 86.0 L % (95.0-100.0) ABG CARBOXYHEMOGLOBIN 2.3 H % (0.5-1.5) ABG METHEMOGLOBIN -0.1 L % (0.4-1.5) ABG RHEMOGLOBIN 11.8 % . PROGRESS AND PROCEDURES Course of Care: Patient is stable. Discussed case with hospitalist, (nAdrea - he says that the patient was discharged here on the for similar issues. They felt that he had a pneumonia. He was started on antibiotics. He is apparently on Levaquin and Augmentin. Dr. Mendez suggests that the patient can be treated as an outpatient. We will attempt to arrange for home oxygen and we'll initiate the patient on antihistamines and steroids.). Reviewed test results and need for additional work-up. Discussed case with patient's primary care provider, (Paulette ibrahim says that his physician's machine assistant Stuart Prakash will see the patient.). Reviewed test results and need for additional work-up. Agreed upon treatment plan and need for patient follow-up. Health care provider will see patient in office. Refers case to other health care provider. Patient/family counseled. Old medical records reviewed. Disposition: Discharged. Condition: stable. CLINICAL IMPRESSION Pressure ulcer on the left foot. Renal insufficiency. Hypoxia. Possible asthma. INSTRUCTIONS Avoid tobacco smoke. (Use 2 L of home oxygen as prescribed and discussed). Warnings: Further evaluation is necessary. GENERAL WARNINGS: Return or contact your physician immediately if your condition worsens or changes unexpectedly, if not improving as expected, or if other problems arise. Your Current Medications: CONTINUE TAKING THE FOLLOWING MEDICATIONS: AmLODIPine Besylate Oral : 5 mg 2x a day. Carvedilol Oral : Tablet 12.5 mg, 1 tablet BID. Diclofenac Sodium ER Oral : 75 mg. DULoxetine HCl Oral : Capsule Delayed Release Particles 20 mg, 1 capsule. Gabapentin Enacarbil ER Oral. Hydrochlorothiazide Oral : 50 mg daily. Losartan Potassium Oral : Tablet 100 mg, 1 tablet daily. MetFORMIN HCl Oral : Tablet 1000 mg, daily. Omeprazole Oral : 20 mg daily. OxyCODONE HCl ER Oral : 15mg BID. Symbicort Inhalation. Systane Ophthalmic. Levaquin Oral : 750 mg daily. Prescription Medications: Albuterol HFA oral inhaler: inhale 2 puffs via spacer every 4 hours as needed. Dispense one (1) unit. No refill. Prednisone 20 mg: take 3 orally every day for 5 days. Dispense fifteen (15). No refills. Zyrtec 10 mg: take 1 tablet orally every day as needed. Dispense twenty (20). No refills. Substitution is permissible. Follow-up: Follow up with a training program manager- as recommended by your primary care physician. Understanding of the discharge instructions verbalized by patient. Follow-up with: Christin Caldwell MD, [facility], , [address] [place], [id number] Follow up Sunday in four days. Call for an appointment. (Electronically signed by Pilo Frank MD 05/12/2016 18:13) Addenda for CHRISTIN CODRON VisitID: [id number] Date: 05/12/2016 05/12/2016 16:29 56 yr old male pt in the ED with chief complained of SOB and Dyspnea with history of COPD. Pt was recently hospitalized for PNA. Pt oxygen sat on room air is 81%. Does not use oxygen at home. MD ordered home oxygen at 2 l per [place]. Will notify [facility] and set up home oxygen. Pt will dc home on portable tank and will call [facility] as soon as he gets home for them to deliver supplies. Tel no is . No further dc needs at this time. Patient with chronic stable condition at discharge. (Electronically signed by Mao Acosta R.N. - 05/12/2016 16:29)
--- NOTE | 2016-05-12 16:38 | ED ORDER SUMMARY ---
..... Patient: CHRISTIN CORDON OrderSheet [facility] VisitID: [id number] [address] [place] [address] 56y, M Registration Date/Time: 05/12/2016 ORDER SHEET Weight: 140 kg (measured) Allergies: All narcotics can cause itching- give benadryl before meds , Hydromorphone, Promethazine , Pt had hallucinations when given dilaudid and morphone at hospital same visit , Sulfa Antibiotics GENERAL ORDERS: Chest 1V Urgent (13:30 05/12/2016 Wendy PRATHER) (Ack 13:41 OSnell) (14:02 JSanders R.N.) Plant Ecologist (Continuous) (13:31 05/12/2016 Wendy PRATHER) (Ack 13:32 OSnell) (14:32 JSanders R.N.) CBC w Diff Urgent (13:31 05/12/2016 Wendy PRATHER) (Ack 13:41 OSnell) (14:31 JSanders R.N.) CMP Urgent (13:31 05/12/2016 Wendy PRATHER) (Ack 13:41 OSnell) (14:31 JSanders R.N.) PT with INR Urgent (13:31 05/12/2016 Wendy PRATHER) (Ack 13:41 OSnell) (14:31 JSanders R.N.) PTT Urgent (13:31 05/12/2016 Wendy PRATHER) (Ack 13:41 OSnell) (14:31 JSanders R.N.) Amylase Urgent (13:31 05/12/2016 Wendy PRATHER) (Ack 13:41 OSnell) (14:31 JSanders R.N.) Lipase Urgent (13:31 05/12/2016 Wendy PRATHER) (Ack 13:41 OSnell) (14:31 JSanders R.N.) CPK Urgent (13:31 05/12/2016 Wendy PRATHER) (Ack 13:41 OSnell) (14:31 JSanders R.N.) Troponin-I Urgent (13:31 05/12/2016 Wendy PRATHER) (Ack 13:41 OSnell) (14:31 JSanders R.N.) PCT (Procalcitonin) Urgent (13:31 05/12/2016 Wendy PRATHER) (Ack 13:41 OSnell) (14:31 JSanders R.N.) BNP Urgent (13:31 05/12/2016 Wendy PRATHER) (Ack 13:41 OSnell) (14:31 JSanders R.N.) Oxygen (2 L/min) (NC) (13:31 05/12/2016 Wendy PRATHER) (Ack 13:32 OSnell) (14:02 JSanders R.N.) Pulse oximeter (13:31 05/12/2016 Wendy PRATHER) (Ack 13:32 OSnell) (14:02 JSanders R.N.) EKG - ER Stat (13:31 05/12/2016 Wendy PRATHER) (Ack 13:32 OSmingo) (14:02 JSanders R.N.) ABG (G) Urgent (15:36 05/12/2016 Wendy PRATHER) (Ack 15:42 RKaruga) (15:45 JSanders R.N.) MEDICATION ORDERS: DuoNeb Neb Tx 1 unit dose (NOW) (14:42 05/12/2016 Wendy PRATHER) (15:31 Eldons R.N.) IV FLUIDS: IV Saline Lock (13:31 05/12/2016 Wendy PRATHER) (14:33 Wesleyeck R.N.) Solu-MEDROL IV 125 mg (NOW) (16:35 05/12/2016 Wendy PRATHER) (16:44 Eldons R.N.) ORDER SHEET NOTES: [Electronically signed by Pilo Frank MD (18:13 05/12/2016)] [Electronically signed by Hailey Moran R.N. (19:02 05/12/2016)] [Electronically locked/signed by Hailey Moran R.N. (19:02 05/12/2016)]
--- NOTE | 2016-05-12 16:38 | ED ORDER SUMMARY ---
..... Patient: CHRISTIN CORDON OrderSheet [facility] VisitID: [id number] [address] [place] [address] 56y, M Registration Date/Time: 05/12/2016 ORDER SHEET Weight: 140 kg (measured) Allergies: All narcotics can cause itching- give benadryl before meds , Hydromorphone, Promethazine , Pt had hallucinations when given dilaudid and morphone at hospital same visit , Sulfa Antibiotics GENERAL ORDERS: Chest 1V Urgent (13:30 05/12/2016 Wendy PRATHER) (Ack 13:41 OSnell) (14:02 JSanders R.N.) Floatlight Powder Mixer (Continuous) (13:31 05/12/2016 Wendy PRATHER) (Ack 13:32 OSnell) (14:32 JSanders R.N.) CBC w Diff Urgent (13:31 05/12/2016 Wendy PRATHER) (Ack 13:41 OSnell) (14:31 JSanders R.N.) CMP Urgent (13:31 05/12/2016 Wendy PRATHER) (Ack 13:41 OSnell) (14:31 JSanders R.N.) PT with INR Urgent (13:31 05/12/2016 Wendy PRATHER) (Ack 13:41 OSnell) (14:31 JSanders R.N.) PTT Urgent (13:31 05/12/2016 Wendy PRATHER) (Ack 13:41 OSnell) (14:31 JSanders R.N.) Amylase Urgent (13:31 05/12/2016 Wendy PRATHER) (Ack 13:41 OSnell) (14:31 JSanders R.N.) Lipase Urgent (13:31 05/12/2016 Wendy PRATHER) (Ack 13:41 OSnell) (14:31 JSanders R.N.) CPK Urgent (13:31 05/12/2016 Wendy PRATHER) (Ack 13:41 OSnell) (14:31 JSanders R.N.) Troponin-I Urgent (13:31 05/12/2016 Wendy PRATHER) (Ack 13:41 OSnell) (14:31 JSanders R.N.) PCT (Procalcitonin) Urgent (13:31 05/12/2016 Wendy PRATHER) (Ack 13:41 OSnell) (14:31 JSanders R.N.) BNP Urgent (13:31 05/12/2016 Wendy PRATHER) (Ack 13:41 OSnell) (14:31 JSanders R.N.) Oxygen (2 L/min) (NC) (13:31 05/12/2016 Wendy PRATHER) (Ack 13:32 OSnell) (14:02 JSanders R.N.) Pulse oximeter (13:31 05/12/2016 Wendy PRATHER) (Ack 13:32 OSnell) (14:02 JSanders R.N.) EKG - ER Stat (13:31 05/12/2016 Wendy PRATHER) (Ack 13:32 OSmingo) (14:02 JSanders R.N.) ABG (G) Urgent (15:36 05/12/2016 Wendy PRATHER) (Ack 15:42 RKaruga) (15:45 JSanders R.N.) MEDICATION ORDERS: DuoNeb Neb Tx 1 unit dose (NOW) (14:42 05/12/2016 Wendy PRATHER) (15:31 Eldons R.N.) IV FLUIDS: IV Saline Lock (13:31 05/12/2016 Wendy PRATHER) (14:33 Wesleyeck R.N.) Solu-MEDROL IV 125 mg (NOW) (16:35 05/12/2016 Wendy PRATHER) (16:44 Eldons R.N.) ORDER SHEET NOTES: [Electronically signed by Pilo Frank MD (18:13 05/12/2016)] [Electronically signed by Hailey Moran R.N. (19:02 05/12/2016)] [Electronically locked/signed by Hailey Moran R.N. (19:02 05/12/2016)]
--- NOTE | 2016-05-12 16:38 | ED NURSING NOTES ---
Clinical Report - Nurses [facility] [address] [place] [address] 05/12/2016 13:21 Patient: CHRISTIN CORDON TRIAGE Triage time 13:May 12 2016. Acuity: LEVEL 3. Chief Complaint: SHORTNESS OF BREATH and DIFFICULTY BREATHING and CHILLS (BOTELLO and diaphoretic). 13:40 05/12/16. SEPSIS SCREEN: Sepsis Screen. Negative (no infection suspected/documented). OBINNA COMA SCORE: Ob[place] Coma Scale: 15- eyes open spontaneously (4); best verbal response- oriented x 4 (5); best motor response- obeys commands (6). --13:40 Hailey Moran R.N. 13:31 05/12/16. BP: 122/67 (large adult cuff) taken on the left arm, while sitting. HR: 74. RR: 24. O2 saturation: 93% on room air. Temp: 98.7 F (oral). Pain level now: 0/10. --13:40 Hailey Moran R.N. Weight: 140 kg measured. Height/Length: 77 inches Per Patient. BMI: 36.6. --13:32 Hailey Moran R.N. Medications AmLODIPine Besylate Oral 5 mg, 2x a day. Carvedilol Oral (Tablet 12.5 mg) 1 tablet, BID. --15:18 Hailey Moran R.N. DULoxetine HCl Oral (Capsule Delayed Release Particles 20 mg) 1 capsule. Losartan Potassium Oral (Tablet 100 mg) 1 tablet, daily. --15:18 Christi Sparks R.N. Gabapentin Enacarbil ER Oral. Hydrochlorothiazide Oral 50 mg, daily. Levaquin Oral 750 mg, daily. Omeprazole Oral 20 mg, daily. OxyCODONE HCl ER Oral 15mg BID . Symbicort Inhalation. Systane Ophthalmic. --15:18 Hailey Moran R.N. MetFORMIN HCl Oral (Tablet 1000 mg), daily. --15:22 Bridger, Christi, R.N. Diclofenac Sodium ER Oral 75 mg. --15:23 Christi Sparks R.N. The following entry was struck by Christi Sparks R.N., 15:26 (05/12/16) Reason - other. <<STRICKEN ENTRY-- Amoxicillin (not sure of dose) BID . --15:18 Hailey Moran R.N. --END STRIKE>> The following entry was struck by Christi Sparks R.N., 15:26 (05/12/16) Reason - other. <<STRICKEN ENTRY-- DiphenhydrAMINE HCl Oral. --15:18 Hailey Moran R.N. --END STRIKE>> The following entry was struck by Christi Sparks R.N., 15:26 (05/12/16) Reason - other. <<STRICKEN ENTRY-- Loperamide HCl Oral. --15:18 Hailey Moran R.N. --END STRIKE>> The following entry was struck and corrected by Christi Sparks R.N., 15:25 (05/12/16) Reason for correction - other(correction). <<STRICKEN ENTRY-- DULoxetine HCl Oral. --15:18 Hailey Moran R.N. --END STRIKE>> The following entry was struck and corrected by Christi Sparks R.N., 15:24 (05/12/16) Reason for correction - other(correction). <<STRICKEN ENTRY-- Losartan Potassium Oral. --15:18 Hailey Moran R.N. --END STRIKE>>. Allergies All narcotics can cause itching- give benadryl before meds . Hydromorphone. ((pills caused itching, but IV dilaudid does ok) ) Promethazine .(itching) Pt had hallucinations when given dilaudid and morphone at hospital same visit . Sulfa Antibiotics.(hives) --15:18 Hailey Moran R.N. History Arrived by private vehicle. Historian: patient. Accompanied by family. Primary physician (Dr Carr). This started yesterday. ( Pneumonia and out Sunday night 05/09/16 from inpatient). He has had chills. ( Diaphoretic). 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 PAST MEDICAL HX: Diabetes mellitus. Hypertension. Congestive heart failure. SOCIAL HX: Never smoker. No alcohol use or drug use. No infectious disease exposure. ABUSE ASSESSMENT: No report of abuse. --13:40 Hailey Moran R.N. PROBLEMS: Pneumonia. Dyspnea. Heart Disease. Fall. Cellulitis. Osteomyelitis. DVT/PE Risk Factors. Peripheral Vascular Disease. Headache. Immunizations. Diabetic Ulcer on R foot. Nephrolithiasis. Hypercholesterolemia. --15:19 Hailey Moran R.N. ADDITIONAL SURGERIES: Amputation Lower Extremity. Back Surgery. Knee Surgery. Lithotripsy. Partial foot amputation. Toe amputation. Tonsillectomy. --15:19 Hailey Moran R.N. Interventions ID band on patient. To treatment room. --13:40 Hailey Moran R.N. PHYSICAL ASSESSMENT 13:41 05/12/16. Ambulatory to room. GENERAL / NEURO / PSYCH: Oriented X 4. Appears anxious. RESPIRATORY: Mild respiratory distress. The patient can speak in full sentences. Prolonged expirations. Decreased breath sounds bilaterally (decreased BS throughout). CVS: Capillary refill less than 2 seconds. GI / : Abdomen soft and nontender. Bowel sounds within normal limits. SKIN: Skin is pale. Skin is warm. Skin is diaphoretic. --13:41 Hailey Moran R.N. NURSING PROGRESS NOTES 13:41 05/12/16. The plan of care for this patient has been created. Monitoring of patient in place. Patient gowned. Head of bed elevated. Reassurance given. Two patient identifiers checked. Call light placed in reach. Side rails up x 1. Bed placed in lowest position. Brakes of bed on. Patient ready for evaluation- chart flagged and ED physician notified. --13:41 Hailey Moran R.N. EKG time: (13:59 PM). EKG was performed by a nick and shown to the ED physician. --14:11 Galina Alcala 14:25 05/12/2016 Site #1 started via IV in the right hand with an 20g angiocath, with aseptic technique and good blood return; two attempts. Blood drawn: rainbow set. Labeled in the presence of the patient and sent to the lab. Saline lock flushed with 10 mL saline. --14:33 Morgan Santos R.N. 14:33 05/12/16. ( Patient doing well, at bedside). --14:33 Hailey Moran R.N. 15:13 05/12/16. ( Patient had neb treatment, he continuously falls asleep and his SPO2 drops into the mid 80's, he is diaphoretic still, says he says "just feeling sweaty lately"). --15:14 Hailey Moran R.N. 15:11 05/12/16. BP: 96/79 (large adult cuff) taken on the left arm, while lying. HR: 69. RR: 20. O2 saturation: 92% on nasal cannula at 2 liters/minute. Temp: 98.4 F (oral). Pain level now: 0/10. --15:14 Hailey Moran R.N. 15:05 05/12/2016 Duoneb (Ipratropium-Albuterol) Neb TX Nebulizer 1 unit dose given. Given by the respiratory therapist. Allergies verified and confirmed 5 rights. --15:31 Hailey Moran R.N. ( Took patient off O2 to trial room air. O2 sat's dropped to 79 and ranged from 79 percent to 85 percent on room air. Applied NC 2L and reported to ). --16:03 Christi Sparks R.N. 14:30 05/12/16. BP: 115/65. HR: 62. RR: 18. O2 saturation: 92% on nasal cannula at 2 liters/minute. Pain level now: 0/10. --16:08 Hailey Moran R.N. 15:00 05/12/16. BP: 96/79. HR: 64. RR: 18. O2 saturation: 87% on nasal cannula at 2 liters/minute. Pain level now: 0/10. --16:09 Hailey Moran R.N. 16:10 05/12/16. --16:10 Hailey Moran R.N. 16:09 05/12/16. BP: 112/63 (large adult cuff) taken on the left arm, while sitting. HR: 71. RR: 18 (regular). O2 saturation: 91% on nasal cannula at 2 liters/minute. Pain level now: 0/10. --16:10 Hailey Moran R.N. DISPOSITION / DISCHARGE 16:44 05/12/2016 SOLU-MEDROL (MethylPREDNISolone Sodium Succ) IVP 125 mg given over 2 minute(s) via site #1. Allergies verified and confirmed 5 rights. IV patency established. IV site checked: no pain, redness, or swelling. IV flushed thoroughly pre- and post-medication administration. IVP given by RN. --16:44 Hailey Moran R.N. 17:15 05/12/2016 Site #1 removed upon discharge. Bandaid applied. --17:15 Hailey Moran R.N. 17:20 05/12/16. Departure time: 17:May 12 2016. Condition at departure: improved. No learning barriers present. Discharge instructions provided and reviewed with the patient. Reviewed warnings (Oxygen safety, keep away from open flames and no smoking). Reviewed medication(s) side effects, precautions and dosing information. Prescription(s) given to the patient. Reviewed referral to a md allergy immunology. Patient verbalized understanding. Written instructions provided in Estonian. The patient was discharged by the physician. He was discharged home and accompanied by spouse. He left the Emergency Department ambulatory and via private vehicle. Spouse driving. ( Patient taught all about oxygen use in the home, to stay away from open flame, no dropping, and he is to call [facility] when he gets home to get oxygen supplies. Patient has no further questions). --17:20 Hailey Moran R.N. 17:07 05/12/16. BP: 114/56 (large adult cuff) taken on the left arm, while sitting. HR: 62. RR: 18 (regular). O2 saturation: 94% on nasal cannula at 2 liters/minute. Temp: 98.2 F (oral). Pain level now: 0/10. --17:20 Hailey Moran R.N. Locked/Released at 05/12/2016 19:02 by Hailey Moran R.N.
--- NOTE | 2016-05-12 19:03 | ED DISCHARGE INSTRUCTIONS ---
Patient: CHRISTIN CORDON General Instructions [facility] VisitID: [id number] [address] [place] [address] 56y, M Registration Date/Time: 05/12/2016 Pressure ulcer on the left foot. Renal insufficiency. Hypoxia. INSTRUCTIONS Avoid tobacco smoke. (Use 2 L of home oxygen as prescribed and discussed). Warnings: Further evaluation is necessary. GENERAL WARNINGS: Return or contact your physician immediately if your condition worsens or changes unexpectedly, if not improving as expected, or if other problems arise. Your Current Medications: CONTINUE TAKING THE FOLLOWING MEDICATIONS: AmLODIPine Besylate Oral : 5 mg 2x a day. Carvedilol Oral : Tablet 12.5 mg, 1 tablet BID. Diclofenac Sodium ER Oral : 75 mg. DULoxetine HCl Oral : Capsule Delayed Release Particles 20 mg, 1 capsule. Gabapentin Enacarbil ER Oral. Hydrochlorothiazide Oral : 50 mg daily. Losartan Potassium Oral : Tablet 100 mg, 1 tablet daily. MetFORMIN HCl Oral : Tablet 1000 mg, daily. Omeprazole Oral : 20 mg daily. OxyCODONE HCl ER Oral : 15mg BID. Symbicort Inhalation. Systane Ophthalmic. Levaquin Oral : 750 mg daily. Prescription Medications: Albuterol HFA oral inhaler: inhale 2 puffs via spacer every 4 hours as needed. Dispense one (1) unit. No refill. Prednisone 20 mg: take 3 orally every day for 5 days. Dispense fifteen (15). No refills. Zyrtec 10 mg: take 1 tablet orally every day as needed. Dispense twenty (20). No refills. Substitution is permissible. Follow-up: Follow up with a managed care director- as recommended by your primary care physician. Understanding of the discharge instructions verbalized by patient. Follow-up with: Christin Caldwell MD, [facility], , [address] [address] Follow up Sunday in four days. Call for an appointment. ADDITIONAL INFORMATION Asthma [Adult] Asthma is a disease where the small air passages within the lung go into spasm and restrict the flow of air. Inflammation and swelling of the airways cause further restriction. During an acute asthma attack, these factors cause difficulty breathing, wheezing, cough and chest tightness. An asthma attack can be triggered by many things. Common triggers include the common cold, bronchitis, pneumonia, irritants such as smoke or pullutants in the air, emotional upset and heavy exercise. Inmany adults with asthma, allergies todust, mold, pollen and animal dander can cause an asthma attack. Skipping doses of daily asthma medicine can also bring on an asthma attack. Asthma can be controlled with proper medicines and decreased exposure to known allergens. Home Care: Take prescribed medicine exactly at the times advised. If you have a hand-held inhaler or aerosol breathing medicine, do not use it more than once every four hours, unless told to do so. (If you need this medicine more than every four hours, you may need to return to the Emergency Room.) If prescribed an antibiotic or prednisone, take all of the medicine even if you are feeling better after a few days. Do not smoke. Avoid being exposed to the smoke of others. Some persons with asthma have worsening of their symptoms when they take aspirin and non-steroidal medicines like ibuprofen (Motrin, Advil) and naproxen (Aleve, Naprosyn). Talk to your doctor if you think this may apply to you. Acetaminophen (Tylenol)should be safe to use. Follow Up with your doctor, or as advised by our staff. Always bring all of your current medicines with you for your doctor to see. If you do not already have one, talk to your doctor about developing a personalized "Asthma Action Plan." [NOTE: A pneumococcal vaccine and yearly flu shot (every fall) are recommended. Ask your doctor about this.] Get Prompt Medical Attention if any of the following occur: Increased wheezing or shortness of breath Need to use your inhalers more often than usual without relief Fever of 100.4F (38C) or higher, or as directed by your healthcare provider Coughing up lots of dark-colored or bloody sputum (mucus) Chest pain with each breath You do not start to improve within 24 hours Call 911 If Any Of The Following Occur : Trouble walking or talking because of shortness of breath If you use a peak flow meter andyou are still in the red zone (less than 50 percent) 15 minutes after using inhaler medication Lips or fingernails turning miranda or blue Renal Insufficiency The role of the kidneys is to remove waste products and excess water from the body. When the kidneys do not function normally, waste products build up in the blood.The early stage of this process is called renal insufficiency . If renal insufficiency worsens it can lead to chronic renal failure. This allows excess water, waste and toxic substances to build up in the body. This can become a threat to life, requiring dialysis or a kidney transplant to stay alive. Diabetes is the leading causes of renal insufficiency. Other causes include high blood pressure, hardening of the arteries, lupus, inflammation of the blood vessels (vasculitis), prior viral and bacterial infections, and others. Certain uoqk-xsk-mmqtbnz pain medicines can cause renal failure when taken often over a long period of time. These include aspirin, ibuprofen (Advil, Motrin) and related anti-inflammatory medicines. Home Care: If you have diabetes, talk to your doctor about the quality of your blood sugar control.Ask about any changes needed to your diet or medicines. If you have high blood pressure: Take your blood pressure medicine. Take up a regular exercise program that you enjoy.Check with your doctor to be sure your planned exercise program is right for you. Reduce your salt (sodium) intake.Your doctor can tell you how much salt per day is safe for you. If you are overweight, talk to your doctor about a weight loss plan. If you smoke, you must quit.Smoking worsens kidney disease.Talk to your doctor about ways to help you quit.For more information, visit the following links: www.smokefree.gov/pubs/clearing_the_air.pdf www.smokefree.gov www.quitnet.com Talk to your doctor about any dietary restrictions advised. In general, it is advisable to limit protein, salt, potassium and phosphorus.Avoid excess fluids. Do not add salt at the table and avoid salty foods.A calcium supplement may be prescribed to protect your bones from osteoporosis. Avoid the following over the counter medicines, or consult your doctor before using: Aspirin and anti-inflammatory drugs such as ibuprofen (Advil, Motrin), naprosyn (Aleve); [Short term use of acetaminophen (Tylenol) for fever or pain is okay.] Laxatives and antacids containing magnesium or aluminum (Mylanta, Maalox) Avoid Fleet or phosphosoda enemas which contain phosphorus Certain stomach acid-blocking medicine such as cimetidine (Tagamet), ranitidine (Zantac) Decongestants containing pseudoephedrine (such as some forms of Sudafed or Actifed) Herbal supplements Follow Up with your doctor or as advised by our staff. Contact one of the following for more information. [place] [employer] Kidney Patients([phone] 714-8994 www.aakp.org National Kidney Foundation www.kidney.org Return Promptly or contact your doctor if any of the following occurs: Nausea or vomiting Severe weakness, dizziness, fainting, drowsiness or confusion Chest pain or shortness of breath Unexpected weight gain or swelling in the legs, ankles or around the eyes Heart beating fast, slow or irregularly Decrease or loss in urine output Decubitus Ulcer A decubitus ulcer starts as a pressure sore (red, tender area on skin). It is caused by lying on a bony area for long periods of time without turning, causing a decrease in blood flow to that part of the skin. Decubitus ulcers usually occur on the lower back, buttocks or heels in persons who spend most or all of their time in bed. Healing time is slow and depends on the size and depth of the ulcer. If a decubitus ulcer becomes infected, it will cause redness in the skin around the ulcer and pus will drain from the wound. If not treated early, a decubitus infection can spread to the bloodstream or nearby bone. Home care The following guidelines will help you care for your wound at home: All ulcers should be looked at every day with good lighting to watch for signs of infection. At the same time, check other skin pressure points for early signs of a skin changes. Changing positions every few hours allows blood to flow to the pressure areas. This is essential for healing to occur. Use of special mattresses (foam, water, air mattresses) and gelpads will help reduce the pressure on the skin. Special skin coverings that remain in place may be prescribed. If a simple bandage is used, change it daily and clean the ulcer with sterile saline or another solution advised by your doctor. Pat dry. Apply any prescribed lotion or cream. Cover with a dry clean gauze pad. Bed linen should be kept clean and dry. Avoid soiling the ulcer with feces or urine. If this is not possible, minimize the time of contact with the feces or urine. Follow-up care Follow up with your doctor as advised by our staff. When to seek medical care Get prompt medical attention if any of the following occur: Increasing redness around the wound Increasing local pain or swelling Pus draining from a wound (not already treated) Unexplained fever over 100.4F (38.0C) oral, or higher Albuterol Sulfate Pressurized inhalation, suspension What is this medicine? ALBUTEROL (al BYOO ter ole) is a bronchodilator. It helps open up the airways in your lungs to make it easier to breathe. This medicine is used to treat and to prevent bronchospasm. How should I use this medicine? This medicine is for inhalation through the mouth. Follow the directions on your prescription label. Take your medicine at regular intervals. Do not use more often than directed. Make sure that you are using your inhaler correctly. Ask you doctor or health care provider if you have any questions. Talk to your part time flexible clerk regarding the use of this medicine in children. Special care may be needed. What side effects may I notice from receiving this medicine? Side effects that you should report to your doctor or health hiv/aids care nurse as soon as possible: allergic reactions like skin rash, itching or hives, swelling of the face, lips, or tongue breathing problems chest pain feeling faint or lightheaded, falls high blood pressure irregular heartbeat fever muscle cramps or weakness pain, tingling, numbness in the hands or feet vomiting Side effects that usually do not require medical attention (report to your doctor or health hiv/aids care nurse if they continue or are bothersome): cough difficulty sleeping headache nervousness or trembling stomach upset stuffy or runny nose throat irritation unusual taste What may interact with this medicine? anti-infectives like chloroquine and pentamidine caffeine cisapride diuretics medicines for colds medicines for depression or for emotional or psychotic conditions medicines for weight loss including some herbal products methadone some antibiotics like clarithromycin, erythromycin, levofloxacin, and linezolid some heart medicines steroid hormones like dexamethasone, cortisone, hydrocortisone theophylline thyroid hormones What if I miss a dose? If you miss a dose, use it as soon as you can. If it is almost time for your next dose, use only that dose. Do not use double or extra doses. Where should I keep my medicine? Keep out of the reach of children. Store at room temperature between 15 and 30 degrees C (59 and 86 degrees F). The contents are under pressure and may burst when exposed to heat or flame. Do not freeze. This medicine does not work as well if it is too cold. Throw away any unused medicine after the expiration date. Inhalers need to be thrown away after the labeled number of puffs have been used or by the expiration date; whichever comes first. Ventolin HFA should be thrown away 12 months after removing from foil pouch. Check the instructions that come with your medicine. What should I tell my health care provider before I take this medicine? They need to know if you have any of the following conditions: diabetes heart disease or irregular heartbeat high blood pressure pheochromocytoma seizures thyroid disease an unusual or allergic reaction to albuterol, levalbuterol, sulfites, other medicines, foods, dyes, or preservatives or trying to get breast-feeding What should I watch for while using this medicine? Tell your doctor or health hiv/aids care nurse if your symptoms do not improve. Do not use extra albuterol. If your asthma or bronchitis gets worse while you are using this medicine, call your doctor right away. If your mouth gets dry try chewing sugarless gum or sucking hard candy. Drink water as directed. Prednisone Oral tablet What is this medicine? PREDNISONE (PRED ni sone) is a corticosteroid. It is commonly used to treat inflammation of the skin, joints, lungs, and other organs. Common conditions treated include asthma, allergies, and arthritis. It is also used for other conditions, such as blood disorders and diseases of the adrenal glands. How should I use this medicine? Take this medicine by mouth with a glass of water. Follow the directions on the prescription label. Take this medicine with food. If you are taking this medicine once a day, take it in the morning. Do not take more medicine than you are told to take. Do not suddenly stop taking your medicine because you may develop a severe reaction. Your doctor will tell you how much medicine to take. If your doctor wants you to stop the medicine, the dose may be slowly lowered over time to avoid any side effects. Talk to your part time flexible clerk regarding the use of this medicine in children. Special care may be needed. What side effects may I notice from receiving this medicine? Side effects that you should report to your doctor or health hiv/aids care nurse as soon as possible: allergic reactions like skin rash, itching or hives, swelling of the face, lips, or tongue changes in emotions or moods changes in vision depressed mood eye pain fever or chills, cough, sore throat, pain or difficulty passing urine increased thirst swelling of ankles, feet Side effects that usually do not require medical attention (report to your doctor or health hiv/aids care nurse if they continue or are bothersome): confusion, excitement, restlessness headache nausea, vomiting skin problems, acne, thin and shiny skin trouble sleeping weight gain What may interact with this medicine? Do not take this medicine with any of the following medications: metyrapone mifepristone This medicine may also interact with the following medications: aminoglutethimide amphotericin B aspirin and aspirin-like medicines barbiturates certain medicines for diabetes, like glipizide or glyburide cholestyramine cholinesterase inhibitors cyclosporine digoxin diuretics ephedrine female hormones, like estrogens and control pills isoniazid ketoconazole NSAIDS, medicines for pain and inflammation, like ibuprofen or naproxen phenytoin rifampin toxoids vaccines warfarin What if I miss a dose? If you miss a dose, take it as soon as you can. If it is almost time for your next dose, talk to your doctor or health hiv/aids care nurse. You may need to miss a dose or take an extra dose. Do not take double or extra doses without advice. Where should I keep my medicine? Keep out of the reach of children. Store at room temperature between 15 and 30 degrees C (59 and 86 degrees F). Protect from light. Keep container tightly closed. Throw away any unused medicine after the expiration date. What should I tell my health care provider before I take this medicine? They need to know if you have any of these conditions: [place]'s syndrome diabetes glaucoma heart disease high blood pressure infection (especially a virus infection such as chickenpox, cold sores, or herpes) kidney disease liver disease mental illness myasthenia gravis osteoporosis seizures stomach or intestine problems thyroid disease an unusual or allergic reaction to lactose, prednisone, other medicines, foods, dyes, or preservatives or trying to get breast-feeding What should I watch for while using this medicine? Visit your doctor or health hiv/aids care nurse for regular checks on your progress. If you are taking this medicine over a prolonged period, carry an identification card with your name and address, the type and dose of your medicine, and your doctor's name and address. This medicine may increase your risk of getting an infection. Tell your doctor or health hiv/aids care nurse if you are around anyone with measles or chickenpox, or if you develop sores or blisters that do not heal properly. If you are going to have surgery, tell your doctor or health hiv/aids care nurse that you have taken this medicine within the last twelve months. Ask your doctor or health hiv/aids care nurse about your diet. You may need to lower the amount of salt you eat. This medicine may affect blood sugar levels. If you have diabetes, check with your doctor or health hiv/aids care nurse before you change your diet or the dose of your diabetic medicine. Cetirizine Hydrochloride Oral tablet What is this medicine? CETIRIZINE (se TI ra neyda) is an antihistamine. This medicine is used to treat or prevent symptoms of allergies. It is also used to help reduce itchy skin rash and hives. How should I use this medicine? Take this medicine by mouth with a glass of water. Follow the directions on the prescription label. You can take this medicine with food or on an empty stomach. Take your medicine at regular times. Do not take more often than directed. You may need to take this medicine for several days before your symptoms improve. Talk to your part time flexible clerk regarding the use of this medicine in children. Special care may be needed. While this drug may be prescribed for children as young as 6 years of age for selected conditions, precautions do apply. What side effects may I notice from receiving this medicine? Side effects that you should report to your doctor or health hiv/aids care nurse as soon as possible: allergic reactions like skin rash, itching or hives, swelling of the face, lips, or tongue changes in vision or hearing fast heartbeat high blood pressure infection trouble passing urine or change in the amount of urine Side effects that usually do not require medical attention (report to your doctor or health hiv/aids care nurse if they continue or are bothersome): irritability loss of sleep sore throat stomach pain swelling What may interact with this medicine? other medicines for colds or allergies theophylline What if I miss a dose? If you miss a dose, take it as soon as you can. If it is almost time for your next dose, take only that dose. Do not take double or extra doses. Where should I keep my medicine? Keep out of the reach of children. Store at room temperature between 15 and 30 degrees C (59 and 86 degrees F). Throw away any unused medicine after the expiration date. What should I tell my health care provider before I take this medicine? They need to know if you have any of these conditions: kidney disease liver disease an unusual or allergic reaction to cetirizine, hydroxyzine, other medicines, foods, dyes, or preservatives or trying to get breast-feeding What should I watch for while using this medicine? Visit your doctor or health hiv/aids care nurse for regular checks on your health. Tell your doctor if your symptoms do not improve. You may get drowsy or dizzy. Do not drive, use machinery, or do anything that needs mental alertness until you know how this medicine affects you. Do not stand or sit up quickly, especially if you are an older patient. This reduces the risk of dizzy or fainting spells. Your mouth may get dry. Chewing sugarless gum or sucking hard candy, and drinking plenty of water may help. Contact your doctor if the problem does not go away or is severe. You have been given the following additional information: Asthma, Acute (Adult) Renal Insufficiency Decubitus Ulcer Albuterol Sulfate Pressurized inhalation, suspension Prednisone Oral tablet Cetirizine Hydrochloride Oral tablet (Electronically signed by Pilo Frank MD 05/12/2016 18:13)
--- NOTE | 2016-05-12 19:03 | ED MAR SUMMARY ---
..... Medication Administration Record [facility] [address] [place] [address] Patient: CHRISTIN CORDON Visit ID: [id number] 56y, M Weight: 140.0 kg Height/Length: 77 in BMI: 36.6 ALLERGIES: All narcotics can cause itching- give benadryl before meds , Hydromorphone, Promethazine , Pt had hallucinations when given dilaudid and morphone at hospital same visit , Sulfa Antibiotics Given 15:05 05/12/2016 Hailey Moran RDeborahN. Medication Administered: DUONEB [NEB TX] (IPRATROPIUM-ALBUTEROL), Dose: 1 unit dose Nebulizer Neb TX. Medication Ordered: DuoNeb Neb Tx 1 unit dose (NOW). Given 16:44 05/12/2016 Hailey Moran RDeborahN. Medication Administered: SOLU-MEDROL [IVP] (METHYLPREDNISOLONE SODIUM SUCC), Dose: 125 mg IVP over 2 minute(s), Site: #1 right hand. Medication Ordered: Solu-MEDROL IV 125 mg (NOW).
--- NOTE | 2016-05-12 19:03 | ED MED RECONCILIATION SUMMARY ---
Patient: CHRISTIN CORDON Medication Reconciliation Report [facility] VisitID: [id number] [address] [place] [address] 56y, M Registration Date/Time: 05/12/2016 Weight: 140 kg Height/Length: 77 in. BMI: 36.6 ALLERGIES: All narcotics can cause itching- give benadryl before meds , Hydromorphone, Promethazine , Pt had hallucinations when given dilaudid and morphone at hospital same visit , Sulfa Antibiotics The patient's Home Medications are listed below: CONTINUE TAKING THE FOLLOWING MEDICATIONS: AmLODIPine Besylate Oral 5 mg, 2x a day Carvedilol Oral (12.5 mg) 1 tablet, BID Diclofenac Sodium ER Oral 75 mg DULoxetine HCl Oral (20 mg) 1 capsule Gabapentin Enacarbil ER Oral Hydrochlorothiazide Oral 50 mg, daily Levaquin Oral 750 mg, daily Losartan Potassium Oral (100 mg) 1 tablet, daily MetFORMIN HCl Oral (1000 mg), daily Omeprazole Oral 20 mg, daily OxyCODONE HCl ER Oral 15mg BID Symbicort Inhalation Systane Ophthalmic The source(s) of the original Home Medication information: Not obtained. The following Medications were given to the patient in the Emergency Department: Duoneb [Neb Tx] Neb TX 1 unit dose, administered: 05/12/2016 3:05:00 PM SOLU-MEDROL [IVP] IVP 125 mg, administered: 05/12/2016 4:44:00 PM The following Medications were prescribed to the patient: Albuterol HFA oral inhaler: inhale 2 puffs via spacer every 4 hours as needed. Dispense one (1) unit. No refill. -- Pilo Frank MD Prednisone 20 mg: take 3 orally every day for 5 days. Dispense fifteen (15). No refills. -- Pilo Frank MD Zyrtec 10 mg: take 1 tablet orally every day as needed. Dispense twenty (20). No refills. Substitution is permissible. -- Pilo Frank MD
--- NOTE | 2016-05-12 19:03 | ED MAR SUMMARY ---
..... Medication Administration Record [facility] [address] [address] Patient: CHRISTIN CORDON Visit ID: [id number] 56y, M Weight: 140.0 kg Height/Length: 77 in BMI: 36.6 ALLERGIES: All narcotics can cause itching- give benadryl before meds , Hydromorphone, Promethazine , Pt had hallucinations when given dilaudid and morphone at hospital same visit , Sulfa Antibiotics Given 15:05 05/12/2016 Hailey Moran RDeborahN. Medication Administered: DUONEB [NEB TX] (IPRATROPIUM-ALBUTEROL), Dose: 1 unit dose Nebulizer Neb TX. Medication Ordered: DuoNeb Neb Tx 1 unit dose (NOW). Given 16:44 05/12/2016 Hailey Moran RDeborahN. Medication Administered: SOLU-MEDROL [IVP] (METHYLPREDNISOLONE SODIUM SUCC), Dose: 125 mg IVP over 2 minute(s), Site: #1 right hand. Medication Ordered: Solu-MEDROL IV 125 mg (NOW).
--- NOTE | 2016-05-12 19:03 | ED DISCHARGE INSTRUCTIONS ---
Patient: CHRISTIN CORDON General Instructions [facility] VisitID: [id number] [address] [place] [address] 56y, M Registration Date/Time: 05/12/2016 Pressure ulcer on the left foot. Renal insufficiency. Hypoxia. INSTRUCTIONS Avoid tobacco smoke. (Use 2 L of home oxygen as prescribed and discussed). Warnings: Further evaluation is necessary. GENERAL WARNINGS: Return or contact your physician immediately if your condition worsens or changes unexpectedly, if not improving as expected, or if other problems arise. Your Current Medications: CONTINUE TAKING THE FOLLOWING MEDICATIONS: AmLODIPine Besylate Oral : 5 mg 2x a day. Carvedilol Oral : Tablet 12.5 mg, 1 tablet BID. Diclofenac Sodium ER Oral : 75 mg. DULoxetine HCl Oral : Capsule Delayed Release Particles 20 mg, 1 capsule. Gabapentin Enacarbil ER Oral. Hydrochlorothiazide Oral : 50 mg daily. Losartan Potassium Oral : Tablet 100 mg, 1 tablet daily. MetFORMIN HCl Oral : Tablet 1000 mg, daily. Omeprazole Oral : 20 mg daily. OxyCODONE HCl ER Oral : 15mg BID. Symbicort Inhalation. Systane Ophthalmic. Levaquin Oral : 750 mg daily. Prescription Medications: Albuterol HFA oral inhaler: inhale 2 puffs via spacer every 4 hours as needed. Dispense one (1) unit. No refill. Prednisone 20 mg: take 3 orally every day for 5 days. Dispense fifteen (15). No refills. Zyrtec 10 mg: take 1 tablet orally every day as needed. Dispense twenty (20). No refills. Substitution is permissible. Follow-up: Follow up with a fruit shipper- as recommended by your primary care physician. Understanding of the discharge instructions verbalized by patient. Follow-up with: Christin Caldwell MD, [facility], , [address] [address] Follow up Sunday in four days. Call for an appointment. ADDITIONAL INFORMATION Asthma [Adult] Asthma is a disease where the small air passages within the lung go into spasm and restrict the flow of air. Inflammation and swelling of the airways cause further restriction. During an acute asthma attack, these factors cause difficulty breathing, wheezing, cough and chest tightness. An asthma attack can be triggered by many things. Common triggers include the common cold, bronchitis, pneumonia, irritants such as smoke or pullutants in the air, emotional upset and heavy exercise. Inmany adults with asthma, allergies todust, mold, pollen and animal dander can cause an asthma attack. Skipping doses of daily asthma medicine can also bring on an asthma attack. Asthma can be controlled with proper medicines and decreased exposure to known allergens. Home Care: Take prescribed medicine exactly at the times advised. If you have a hand-held inhaler or aerosol breathing medicine, do not use it more than once every four hours, unless told to do so. (If you need this medicine more than every four hours, you may need to return to the Emergency Room.) If prescribed an antibiotic or prednisone, take all of the medicine even if you are feeling better after a few days. Do not smoke. Avoid being exposed to the smoke of others. Some persons with asthma have worsening of their symptoms when they take aspirin and non-steroidal medicines like ibuprofen (Motrin, Advil) and naproxen (Aleve, Naprosyn). Talk to your doctor if you think this may apply to you. Acetaminophen (Tylenol)should be safe to use. Follow Up with your doctor, or as advised by our staff. Always bring all of your current medicines with you for your doctor to see. If you do not already have one, talk to your doctor about developing a personalized "Asthma Action Plan." [NOTE: A pneumococcal vaccine and yearly flu shot (every fall) are recommended. Ask your doctor about this.] Get Prompt Medical Attention if any of the following occur: Increased wheezing or shortness of breath Need to use your inhalers more often than usual without relief Fever of 100.4F (38C) or higher, or as directed by your healthcare provider Coughing up lots of dark-colored or bloody sputum (mucus) Chest pain with each breath You do not start to improve within 24 hours Call 911 If Any Of The Following Occur : Trouble walking or talking because of shortness of breath If you use a peak flow meter andyou are still in the red zone (less than 50 percent) 15 minutes after using inhaler medication Lips or fingernails turning miranda or blue Renal Insufficiency The role of the kidneys is to remove waste products and excess water from the body. When the kidneys do not function normally, waste products build up in the blood.The early stage of this process is called renal insufficiency . If renal insufficiency worsens it can lead to chronic renal failure. This allows excess water, waste and toxic substances to build up in the body. This can become a threat to life, requiring dialysis or a kidney transplant to stay alive. Diabetes is the leading causes of renal insufficiency. Other causes include high blood pressure, hardening of the arteries, lupus, inflammation of the blood vessels (vasculitis), prior viral and bacterial infections, and others. Certain [id number] pain medicines can cause renal failure when taken often over a long period of time. These include aspirin, ibuprofen (Advil, Motrin) and related anti-inflammatory medicines. Home Care: If you have diabetes, talk to your doctor about the quality of your blood sugar control.Ask about any changes needed to your diet or medicines. If you have high blood pressure: Take your blood pressure medicine. Take up a regular exercise program that you enjoy.Check with your doctor to be sure your planned exercise program is right for you. Reduce your salt (sodium) intake.Your doctor can tell you how much salt per day is safe for you. If you are overweight, talk to your doctor about a weight loss plan. If you smoke, you must quit.Smoking worsens kidney disease.Talk to your doctor about ways to help you quit.For more information, visit the following links: www.smokefree.gov/pubs/clearing_the_air.pdf www.smokefree.gov www.quitnet.com Talk to your doctor about any dietary restrictions advised. In general, it is advisable to limit protein, salt, potassium and phosphorus.Avoid excess fluids. Do not add salt at the table and avoid salty foods.A calcium supplement may be prescribed to protect your bones from osteoporosis. Avoid the following over the counter medicines, or consult your doctor before using: Aspirin and anti-inflammatory drugs such as ibuprofen (Advil, Motrin), naprosyn (Aleve); [Short term use of acetaminophen (Tylenol) for fever or pain is okay.] Laxatives and antacids containing magnesium or aluminum (Mylanta, Maalox) Avoid Fleet or phosphosoda enemas which contain phosphorus Certain stomach acid-blocking medicine such as cimetidine (Tagamet), ranitidine (Zantac) Decongestants containing pseudoephedrine (such as some forms of Sudafed or Actifed) Herbal supplements Follow Up with your doctor or as advised by our staff. Contact one of the following for more information. [place] [phone] www.aakp.org National Kidney Foundation www.kidney.org Return Promptly or contact your doctor if any of the following occurs: Nausea or vomiting Severe weakness, dizziness, fainting, drowsiness or confusion Chest pain or shortness of breath Unexpected weight gain or swelling in the legs, ankles or around the eyes Heart beating fast, slow or irregularly Decrease or loss in urine output Decubitus Ulcer A decubitus ulcer starts as a pressure sore (red, tender area on skin). It is caused by lying on a bony area for long periods of time without turning, causing a decrease in blood flow to that part of the skin. Decubitus ulcers usually occur on the lower back, buttocks or heels in persons who spend most or all of their time in bed. Healing time is slow and depends on the size and depth of the ulcer. If a decubitus ulcer becomes infected, it will cause redness in the skin around the ulcer and pus will drain from the wound. If not treated early, a decubitus infection can spread to the bloodstream or nearby bone. Home care The following guidelines will help you care for your wound at home: All ulcers should be looked at every day with good lighting to watch for signs of infection. At the same time, check other skin pressure points for early signs of a skin changes. Changing positions every few hours allows blood to flow to the pressure areas. This is essential for healing to occur. Use of special mattresses (foam, water, air mattresses) and gelpads will help reduce the pressure on the skin. Special skin coverings that remain in place may be prescribed. If a simple bandage is used, change it daily and clean the ulcer with sterile saline or another solution advised by your doctor. Pat dry. Apply any prescribed lotion or cream. Cover with a dry clean gauze pad. Bed linen should be kept clean and dry. Avoid soiling the ulcer with feces or urine. If this is not possible, minimize the time of contact with the feces or urine. Follow-up care Follow up with your doctor as advised by our staff. When to seek medical care Get prompt medical attention if any of the following occur: Increasing redness around the wound Increasing local pain or swelling Pus draining from a wound (not already treated) Unexplained fever over 100.4F (38.0C) oral, or higher Albuterol Sulfate Pressurized inhalation, suspension What is this medicine? ALBUTEROL (al BYOO ter ole) is a bronchodilator. It helps open up the airways in your lungs to make it easier to breathe. This medicine is used to treat and to prevent bronchospasm. How should I use this medicine? This medicine is for inhalation through the mouth. Follow the directions on your prescription label. Take your medicine at regular intervals. Do not use more often than directed. Make sure that you are using your inhaler correctly. Ask you doctor or health care provider if you have any questions. Talk to your greens planter regarding the use of this medicine in children. Special care may be needed. What side effects may I notice from receiving this medicine? Side effects that you should report to your doctor or health patient care specialist as soon as possible: allergic reactions like skin rash, itching or hives, swelling of the face, lips, or tongue breathing problems chest pain feeling faint or lightheaded, falls high blood pressure irregular heartbeat fever muscle cramps or weakness pain, tingling, numbness in the hands or feet vomiting Side effects that usually do not require medical attention (report to your doctor or health patient care specialist if they continue or are bothersome): cough difficulty sleeping headache nervousness or trembling stomach upset stuffy or runny nose throat irritation unusual taste What may interact with this medicine? anti-infectives like chloroquine and pentamidine caffeine cisapride diuretics medicines for colds medicines for depression or for emotional or psychotic conditions medicines for weight loss including some herbal products methadone some antibiotics like clarithromycin, erythromycin, levofloxacin, and linezolid some heart medicines steroid hormones like dexamethasone, cortisone, hydrocortisone theophylline thyroid hormones What if I miss a dose? If you miss a dose, use it as soon as you can. If it is almost time for your next dose, use only that dose. Do not use double or extra doses. Where should I keep my medicine? Keep out of the reach of children. Store at room temperature between 15 and 30 degrees C (59 and 86 degrees F). The contents are under pressure and may burst when exposed to heat or flame. Do not freeze. This medicine does not work as well if it is too cold. Throw away any unused medicine after the expiration date. Inhalers need to be thrown away after the labeled number of puffs have been used or by the expiration date; whichever comes first. Ventolin HFA should be thrown away 12 months after removing from foil pouch. Check the instructions that come with your medicine. What should I tell my health care provider before I take this medicine? They need to know if you have any of the following conditions: diabetes heart disease or irregular heartbeat high blood pressure pheochromocytoma seizures thyroid disease an unusual or allergic reaction to albuterol, levalbuterol, sulfites, other medicines, foods, dyes, or preservatives or trying to get breast-feeding What should I watch for while using this medicine? Tell your doctor or health patient care specialist if your symptoms do not improve. Do not use extra albuterol. If your asthma or bronchitis gets worse while you are using this medicine, call your doctor right away. If your mouth gets dry try chewing sugarless gum or sucking hard candy. Drink water as directed. Prednisone Oral tablet What is this medicine? PREDNISONE (PRED ni sone) is a corticosteroid. It is commonly used to treat inflammation of the skin, joints, lungs, and other organs. Common conditions treated include asthma, allergies, and arthritis. It is also used for other conditions, such as blood disorders and diseases of the adrenal glands. How should I use this medicine? Take this medicine by mouth with a glass of water. Follow the directions on the prescription label. Take this medicine with food. If you are taking this medicine once a day, take it in the morning. Do not take more medicine than you are told to take. Do not suddenly stop taking your medicine because you may develop a severe reaction. Your doctor will tell you how much medicine to take. If your doctor wants you to stop the medicine, the dose may be slowly lowered over time to avoid any side effects. Talk to your greens planter regarding the use of this medicine in children. Special care may be needed. What side effects may I notice from receiving this medicine? Side effects that you should report to your doctor or health patient care specialist as soon as possible: allergic reactions like skin rash, itching or hives, swelling of the face, lips, or tongue changes in emotions or moods changes in vision depressed mood eye pain fever or chills, cough, sore throat, pain or difficulty passing urine increased thirst swelling of ankles, feet Side effects that usually do not require medical attention (report to your doctor or health patient care specialist if they continue or are bothersome): confusion, excitement, restlessness headache nausea, vomiting skin problems, acne, thin and shiny skin trouble sleeping weight gain What may interact with this medicine? Do not take this medicine with any of the following medications: metyrapone mifepristone This medicine may also interact with the following medications: aminoglutethimide amphotericin B aspirin and aspirin-like medicines barbiturates certain medicines for diabetes, like glipizide or glyburide cholestyramine cholinesterase inhibitors cyclosporine digoxin diuretics ephedrine female hormones, like estrogens and control pills isoniazid ketoconazole NSAIDS, medicines for pain and inflammation, like ibuprofen or naproxen phenytoin rifampin toxoids vaccines warfarin What if I miss a dose? If you miss a dose, take it as soon as you can. If it is almost time for your next dose, talk to your doctor or health patient care specialist. You may need to miss a dose or take an extra dose. Do not take double or extra doses without advice. Where should I keep my medicine? Keep out of the reach of children. Store at room temperature between 15 and 30 degrees C (59 and 86 degrees F). Protect from light. Keep container tightly closed. Throw away any unused medicine after the expiration date. What should I tell my health care provider before I take this medicine? They need to know if you have any of these conditions: [employer]'s syndrome diabetes glaucoma heart disease high blood pressure infection (especially a virus infection such as chickenpox, cold sores, or herpes) kidney disease liver disease mental illness myasthenia gravis osteoporosis seizures stomach or intestine problems thyroid disease an unusual or allergic reaction to lactose, prednisone, other medicines, foods, dyes, or preservatives or trying to get breast-feeding What should I watch for while using this medicine? Visit your doctor or health patient care specialist for regular checks on your progress. If you are taking this medicine over a prolonged period, carry an identification card with your name and address, the type and dose of your medicine, and your doctor's name and address. This medicine may increase your risk of getting an infection. Tell your doctor or health patient care specialist if you are around anyone with measles or chickenpox, or if you develop sores or blisters that do not heal properly. If you are going to have surgery, tell your doctor or health patient care specialist that you have taken this medicine within the last twelve months. Ask your doctor or health patient care specialist about your diet. You may need to lower the amount of salt you eat. This medicine may affect blood sugar levels. If you have diabetes, check with your doctor or health patient care specialist before you change your diet or the dose of your diabetic medicine. Cetirizine Hydrochloride Oral tablet What is this medicine? CETIRIZINE (se TI ra neyda) is an antihistamine. This medicine is used to treat or prevent symptoms of allergies. It is also used to help reduce itchy skin rash and hives. How should I use this medicine? Take this medicine by mouth with a glass of water. Follow the directions on the prescription label. You can take this medicine with food or on an empty stomach. Take your medicine at regular times. Do not take more often than directed. You may need to take this medicine for several days before your symptoms improve. Talk to your greens planter regarding the use of this medicine in children. Special care may be needed. While this drug may be prescribed for children as young as 6 years of age for selected conditions, precautions do apply. What side effects may I notice from receiving this medicine? Side effects that you should report to your doctor or health patient care specialist as soon as possible: allergic reactions like skin rash, itching or hives, swelling of the face, lips, or tongue changes in vision or hearing fast heartbeat high blood pressure infection trouble passing urine or change in the amount of urine Side effects that usually do not require medical attention (report to your doctor or health patient care specialist if they continue or are bothersome): irritability loss of sleep sore throat stomach pain swelling What may interact with this medicine? other medicines for colds or allergies theophylline What if I miss a dose? If you miss a dose, take it as soon as you can. If it is almost time for your next dose, take only that dose. Do not take double or extra doses. Where should I keep my medicine? Keep out of the reach of children. Store at room temperature between 15 and 30 degrees C (59 and 86 degrees F). Throw away any unused medicine after the expiration date. What should I tell my health care provider before I take this medicine? They need to know if you have any of these conditions: kidney disease liver disease an unusual or allergic reaction to cetirizine, hydroxyzine, other medicines, foods, dyes, or preservatives or trying to get breast-feeding What should I watch for while using this medicine? Visit your doctor or health patient care specialist for regular checks on your health. Tell your doctor if your symptoms do not improve. You may get drowsy or dizzy. Do not drive, use machinery, or do anything that needs mental alertness until you know how this medicine affects you. Do not stand or sit up quickly, especially if you are an older patient. This reduces the risk of dizzy or fainting spells. Your mouth may get dry. Chewing sugarless gum or sucking hard candy, and drinking plenty of water may help. Contact your doctor if the problem does not go away or is severe. You have been given the following additional information: Asthma, Acute (Adult) Renal Insufficiency Decubitus Ulcer Albuterol Sulfate Pressurized inhalation, suspension Prednisone Oral tablet Cetirizine Hydrochloride Oral tablet (Electronically signed by Pilo Frank MD 05/12/2016 18:13)
--- NOTE | 2016-05-12 19:03 | ED MED RECONCILIATION SUMMARY ---
Patient: CHRISTIN CORDON Medication Reconciliation Report [facility] VisitID: [id number] [address] [place] [address] 56y, M Registration Date/Time: 05/12/2016 Weight: 140 kg Height/Length: 77 in. BMI: 36.6 ALLERGIES: All narcotics can cause itching- give benadryl before meds , Hydromorphone, Promethazine , Pt had hallucinations when given dilaudid and morphone at hospital same visit , Sulfa Antibiotics The patient's Home Medications are listed below: CONTINUE TAKING THE FOLLOWING MEDICATIONS: AmLODIPine Besylate Oral 5 mg, 2x a day Carvedilol Oral (12.5 mg) 1 tablet, BID Diclofenac Sodium ER Oral 75 mg DULoxetine HCl Oral (20 mg) 1 capsule Gabapentin Enacarbil ER Oral Hydrochlorothiazide Oral 50 mg, daily Levaquin Oral 750 mg, daily Losartan Potassium Oral (100 mg) 1 tablet, daily MetFORMIN HCl Oral (1000 mg), daily Omeprazole Oral 20 mg, daily OxyCODONE HCl ER Oral 15mg BID Symbicort Inhalation Systane Ophthalmic The source(s) of the original Home Medication information: Not obtained. The following Medications were given to the patient in the Emergency Department: Duoneb [Neb Tx] Neb TX 1 unit dose, administered: 05/12/2016 3:05:00 PM SOLU-MEDROL [IVP] IVP 125 mg, administered: 05/12/2016 4:44:00 PM The following Medications were prescribed to the patient: Albuterol HFA oral inhaler: inhale 2 puffs via spacer every 4 hours as needed. Dispense one (1) unit. No refill. -- Pilo Frank MD Prednisone 20 mg: take 3 orally every day for 5 days. Dispense fifteen (15). No refills. -- Pilo Frank MD Zyrtec 10 mg: take 1 tablet orally every day as needed. Dispense twenty (20). No refills. Substitution is permissible. -- Pilo Frank MD
== END 2016-05-12 17:20 | disposition home or self-care (01) ==
LOC: ED SRH 13:21
DX: N28.9 Disorder of kidney and ureter, unspecified (principal); L89.629 Pressure ulcer of left heel, unspecified stage; R09.02 Hypoxemia; I50.9 Heart failure, unspecified; I51.9 Heart disease, unspecified; I10 Essential (primary) hypertension; E11.9 Type 2 diabetes mellitus without complications; E78.00 Pure hypercholesterolemia, unspecified; Z79.2 Long term (current) use of antibiotics; M86.9 Osteomyelitis, unspecified
CPT/HCPCS: 90100; 90616; 91320; 92235; 92530; 92610; 93004; 94001; 94060; 95059

== ENCOUNTER 2016-06-27 10:16 | Outpatient (CLI) | payer OTHER ==
--- NOTE | 2016-06-27 15:06 | DIAGNOSTIC IMAGING REPORT ---
REFERRING PHYSICIAN/PROVIDER: Harley Caldwell MD CONSULTING FORENSIC LOCKSMITH: Maxim Mccarthy MD PROCEDURE: M-mode 2D echocardiography with spectral and color flow Doppler TECHNICAL QUALITY: Fair INDICATION: DYSPNEA RHYTHM DURING PROCEDURE: Normal sinus rhythm INTERPRETATIONS: LEFT VENTRICLE: There is normal left ventricular size and systolic function. The estimated ejection fraction is 60%. There is grade 1 diastolic dysfunction noted, which may be normal for age. RIGHT VENTRICLE: The right ventricle is normal in size and systolic function. ATRIA: Normal biatrial size. MITRAL VALVE: There is mild mitral annular calcification noted. There is no evidence of mitral valve prolapse. There is no evidence of mitral stenosis. There is trace mitral regurgitation noted. AORTIC VALVE: There is mild aortic sclerosis with no evidence of aortic stenosis noted. There is no significant aortic regurgitation noted. TRICUSPID VALVE: The tricuspid valve leaflets are thin and pliable. There is trace tricuspid regurgitation noted. Normal estimated right ventricular systolic pressure. PULMONIC VALVE: There is no significant pulmonic regurgitation noted. GREAT VESSELS: The ascending aorta is normal in size at 3.1 cm. The inferior vena cava is normal with normal respiratory variation noted. PERICARDIUM: There is no pericardial or pleural effusion noted. IMPRESSION: 1. Normal biventricular size and systolic function 2. Normal biatrial size 3. Aortic sclerosis without any evidence of aortic stenosis 4. Mild mitral annular calcification 5. Normal IVC with normal respiratory variation. 6. Normal estimated right ventricular systolic pressure
[2016-06-28] MEDS ORDERED: COZAAR100 MG PO (07:31)
== END 2016-06-27 23:00 ==
LOC: US SRH 10:16
DX: I70.0 Atherosclerosis of aorta (principal)

== ENCOUNTER 2016-06-28 07:09 | Day surgery (SDC) | payer OTHER ==
[~2016-06-28] VITALS: Ht 195.6 cm; Wt 140.7 kg
[2016-06-28] MEDS ORDERED: COZAAR100 MG PO (07:31)
--- NOTE | 2016-06-28 10:31 | Provider's Discharge Care Plan ---
Problem, Goal, Plan Problem List 1. Short Achilles tendon (acquired), left ankle Goals: Improve function Instructions: Follow up as directed
--- NOTE | 2016-06-28 10:31 | Provider's Discharge Care Plan ---
Problem, Goal, Plan Problem List 1. Short Achilles tendon (acquired), left ankle Goals: Improve function Instructions: Follow up as directed
[2016-06-28 11:37] VITALS: BP 124/64
--- NOTE | 2016-06-28 11:56 | OPERATIVE REPORT ---
DATE OF SURGERY: 06/28/2016 SURGEON: Cruzito Marsh DPM [employer] [facility] DIRECTOR: None. PREOPERATIVE DIAGNOSES: 1. Nonhealing wound, left foot 2. Acquired short Achilles tendon, left ankle POSTOPERATIVE DIAGNOSES: 1. Nonhealing wound, left foot 2. Acquired short Achilles tendon, left ankle PROCEDURE PERFORMED: 1. Percutaneous tendo-Achilles lengthening, left ankle ESTIMATED BLOOD LOSS: Less than 10 mL. PATHOLOGY SPECIMEN: None. DRAINS: None. IMPLANTS: None INDICATIONS: The patient is a 56-year-old white diabetic male with a nonhealing wound on left forefoot, following forefoot amputation. The patient has developed acquired short Achilles tendon of the left lower extremity, requiring lengthening. SURGICAL TECHNIQUE: The patient was brought to the operating room table and placed in the supine position. General anesthesia was then administered. Local anesthesia was administered via the injection of a total of 10 mL of 0.5% Marcaine with epinephrine 1:200,000 in the form of a field block to the posterior left ankle and left lower extremity, overlying the planned incisions. The left lower extremity was then prepped and draped in usual sterile orthopedic fashion. The attention was then directed to the posterior aspect of the left ankle and lower extremity where 3 incisions were planned. The most distal incision was made approximately 2 cm from the superior aspect of the calcaneus and was made to the medial aspect of the Achilles tendon. The next incision was made lateral to the Achilles tendon, approximately 3 cm proximal to the first incision, and the third incision was made 3 cm proximal to the second incision on the medial aspect of the Achilles tendon. Incisions were made with a sterile 15 blade, measuring approximately 1 cm in length. The incisions were deepened by means of sharp and blunt dissection. The medial 1/2 of the Achilles tendon was incised in the most proximal and most distal incisions. From the middle incision, the lateral 1/2 of the Achilles tendon was incised. Following the release, the Achilles tendon was noted to lengthened, and the desired amount of dorsiflexion of the Achilles tendon was achieved. The surgical sites were copiously flushed with sterile saline. Skin incisions were closed with 4-0 Surgipro suture in simple interupted fashion. Surgical sites were then dressed with Adaptic gauze, Conform. A Singh compression splint was then applied to the left lower extremity utilizing stockinette, Webril, plaster splints and Josh bandages. No tourniquet was utilized for this case. The patient tolerated the anesthesia and procedures well and left the operating room in apparent satisfactory condition. The patient was then taken to the recovery room where he had an uneventful recovery. The patient will be followed for his postoperative care as an outpatient at the [facility].
== END 2016-06-28 12:43 | disposition home or self-care (01) ==
LOC: OR SRH 07:09 → SCU SRH 07:10 → OR SRH 09:00
PROVIDERS: Podiatrist
PROC: 0L8P3ZZ Division of Left Lower Leg Tendon, Percutaneous Approach (ICD-10-PCS; principal; 2016-06-28 09:00)
DX: M67.02 Short Achilles tendon (acquired), left ankle (principal); E11.621 Type 2 diabetes mellitus with foot ulcer; E11.42 Type 2 diabetes mellitus with diabetic polyneuropathy; E11.22 Type 2 diabetes mellitus with diabetic chronic kidney disease; I12.9 Hypertensive chronic kidney disease with stage 1 through stage 4 chronic kidney disease, or unspecified chronic kidney disease; N18.9 Chronic kidney disease, unspecified; Z79.84 Long term (current) use of oral hypoglycemic drugs
CPT/HCPCS: 29229; 29240; 50002; 60001; 70002; 80102; 80212; 81509; 84038; 90047; 90074; 94001; 94060; 95059

== ENCOUNTER 2016-07-18 12:48 | Inpatient (IN) | payer OTHER ==
[~2016-07-18] VITALS: Ht 195.6 cm; Wt 143.6 kg
[~2016-07-18 12:48] MED LIST changes: +COZAAR100 MG PO
--- NOTE | 2016-07-18 13:38 | DIAGNOSTIC IMAGING REPORT ---
PROCEDURE: XR CHEST 1 VIEW INDICATION: SHORTNESS OF BREATH TECHNIQUE: Portable AP view 01:14 p.m. COMPARISON: Chest x-ray 05/12/2016. FINDINGS: New retrocardiac infiltrate. Heart and mediastinum are normal. Thorax is normal. IMPRESSION: 1. Retrocardiac infiltrate.
--- NOTE | 2016-07-18 16:47 | ED CLINICAL REPORT ---
Clinical Report - Physicians/Mid Levels [facility] [address] [place] [address] 07/18/2016 12:47 Patient: CHRISTIN CORDON Time Seen: 12:53; initial patient contact. Arrived- By private vehicle. Historian- patient. HISTORY OF PRESENT ILLNESS Chief Complaint: DYSPNEA. This started about 4 days ago and is still present. The dyspnea is described as moderate. The dyspnea is worsened by walking, exertion and cough. No improvement of dyspnea with rest or oxygen. The patient has had a cough and wheezing. No sputum production, fever, sweating episodes or chills. No chest pain or discomfort, calf pain, foot swelling or anxiety. No palpitations. Similar symptoms previously: Several times. Recent medical care: Not recently seen/assessed. REVIEW OF SYSTEMS No nausea, vomiting or fainting episodes. All systems otherwise negative, except as recorded above. PAST HISTORY Problems: Pneumonia. Dyspnea. Congestive Heart Failure. Heart Disease. Lower Extremity Pain. Abrasion(s). Contusion. Fall. Cellulitis. Changed Mental Status. Osteomyelitis. DVT/PE Risk Factors. Peripheral Vascular Disease. Headache. Immunizations. Diabetic Ulcer on R foot. Nephrolithiasis. Hypercholesterolemia. Diabetes Mellitus. Hypertension. Additional Surgeries: Amputation Lower Extremity. Back Surgery. Knee Surgery. Lithotripsy. Partial foot amputation. Toe amputation. Tonsillectomy. SOCIAL HISTORY Never smoker. No alcohol use or drug use. ADDITIONAL NOTES The nursing notes have been reviewed. PHYSICAL EXAM Vital Signs: 07/18/2016 12:54 BP: 135/116. HR: 85. RR: 19. O2 saturation: 79%. Temp: 97.9 F. Pain level now: 0/10. Have been reviewed. Hypertensive. Heart rate normal. Respiratory rate normal. Temperature normal. Oxygen saturation low. Appearance: Alert. No acute distress. Eyes: Eyes normal inspection. ENT: Pharynx normal. Neck: Normal inspection. No jugular venous distention. CVS: Normal heart rate and rhythm. Heart sounds normal. Respiratory: Moderate respiratory distress with accessory muscle use and retractions. Speaks short phrases. Moderately prolonged expirations. Moderately decreased air movement diffusely over both lungs. Expiratory moderate bilateral wheezes diffusely. No stridor, rales or rhonchi. Abdomen: Soft and nontender. No organomegaly. The bowel sounds are not abnormal. Skin: Skin warm and dry. No rash. Extremities: (L foot bandaged). Neuro: Oriented X 3. LABS, X-RAYS, AND EKG EKG: EKG time: (1316). No acute process. No acute ischemia. Normal EKG. Normal sinus rhythm. Rate: 73. Normal P waves. Normal CED. Normal QRS complex. Normal axis. Normal ST and T waves, QT and QTc. EKG unchanged when compared with prior EKG. (). The study has been interpreted contemporaneously by me. The study has been independently viewed by me. The EKG appears to be a good tracing. Interpretation time: 1316. Chest X-ray: (1. Normal biventricular size and systolic function 2. Normal biatrial size 3. Aortic sclerosis without any evidence of aortic stenosis 4. Mild mitral annular calcification 5. Normal IVC with normal respiratory variation. 6. Normal estimated right ventricular systolic pressure). Views: AP. Technique: good. The X-rays were independently viewed by me, interpreted by the radiologist and discussed with the radiologist. A comparison with prior films reveals that the findings are new. Lower Extremity Sonography: Negative exam. No compression abnormality noted. The exam was performed by a hospital pharmacy technician. The study was interpreted by the radiologist and discussed with the radiologist. Interpretation time: 16:36. Laboratory Tests: CBC w Diff: (LATONIA: 07/18/2016 13:07) ( MsgRcvd 07/18/2016 13:27) Final results Test Result Flag Units (Reference) WHITE BLOOD COUNT 6.7 K/uL (4.5-11.5) RED BLOOD COUNT 4.21 L M/uL (4.50-5.90) HEMOGLOBIN 12.0 L gm/dL (13.5-17.5) HEMATOCRIT 38.0 L % (41.0-53.0) MEAN CELL VOLUME 90 fL (80-100) MEAN CORPUSCULAR HGB 29 pg (26-34) MEAN CORPUSCULAR HGB CONC 32 g/dL (31-37) RED CELL DISTRIBUTION WIDTH 16.5 H % (11.6-14.8) PLATELET COUNT 329 K/uL (150-400) NEUTROPHIL % 77.7 H % (50-75) LYMPH % 14.8 L % (25-40) MONO % 6.3 % (3-14) EOSINOPHIL % 0.4 % (0-4) BASOPHIL % 0.8 % (0-2) [id number]: (LATONIA: 07/18/2016 13:07) ( [facility] 07/18/2016 13:35) Final results Test Result Flag Units (Reference) D-DIMER QUANTITATIVE 0.68 H ug/mLFEU (0.27-0.52) The primary value of this quantitative assay relates toits negative predictive value (i.e. exclusion) of pulmonaryembolism/deep vein thrombosis/DIC.Elevated levels of d-dimer may also occur with:, age, cancer, inflammation, liver disease,post-op, infection, hematoma, coronary disease, peripheralarteriopathy, bleeding disorders and thrombolytic treatment.Results should be correlated with other clinical andradiological data.Testing Methodology: Latex Immunoassay [id number]: (LATONIA: 07/18/2016 14:29) ( [facility] 07/18/2016 15:09) Final results Test Result Flag Units (Reference) LACTIC ACID SEPSIS PROTOCOL 1.2 mmol/L (0.4-2.0) [id number]: (LATONIA: 07/18/2016 13:07) ( [facility] 07/18/2016 14:50) Final results Test Result Flag Units (Reference) PROCALCITONIN <0.5 ng/mL (0-0.5) PCT Concentration: Interpretation : Risk/option for action PCT <=0.5 ng/mL : Systemic : Low risk forinfection(sepsis): progression to severeis not likely. : systemic infection.Local bacterial : CAUTION-PCT levelsinfection is : below 0.5 ng/mL do notpossible. : exclude an infection,because localizedinfections (withoutsystemic signs) may beassociated with suchlow levels. If PCT ismeasured very earlyafter a bacterialchallenge (usually <6hours), these valuesmay still be low. Inthis case PCT shouldbe re-assessed 6-24hours later. PCT >0.5 and : Systemic infection: Moderate risk for<= 2 ng/mL : (sepsis) is : progression to severepossible, but : systemic infection.other conditions : The patient should beare known to : closely monitoredelevate PCT. : both clinically andby re-assessing PCTwithin 6-24 hours. PCT > 2 ng/mL : Systemic infection: High risk for(sepsis) is likely: progression to severeunless other : systemic infection.causes are known. : PCT >= 10 ng/mL : Important systemic: High likelihood ofinflammatory : severe sepsis orresponse, almost : septic shock.exclusively due to:severe bacterial :sepsis or septic :shock. : BNP: (LATONIA: 07/18/2016 13:07) ( MsgRcvd 07/18/2016 13:47) Final results Test Result Flag Units (Reference) B-TYPE NATRIURETIC PEPTIDE 486 H pg/ml (5-100) CHEM 13 PANEL: (LATONIA: 07/18/2016 13:07) ( MsgRcvd 07/18/2016 13:39) Final results Test Result Flag Units (Reference) GLUCOSE 165 H mg/dL (70-110) BUN 25 H mg/dL (7-18) CREATININE 1.5 H mg/dL (0.6-1.3) Estimated GFR 51.64 mL/min Estimated GFR- >60 mL/min Note: Persistent reduction over 3 months in eGFR<60 mL/min/1.73 m2 defines CKD. Patients with eGFR values>=60 mL/min/1.73 m2 may also have CKD if evidence ofpersistent proteinuria. Additional information may be foundat [email or web address].org. SODIUM 141 mmol/L (136-145) POTASSIUM 4.8 mmol/L (3.5-5.1) CHLORIDE 103 mmol/L (98-107) CARBON DIOXIDE 35 H mmol/L (21-32) CALCIUM 8.9 mg/dL (8.5-10.1) TOTAL PROTEIN 8.4 H g/dL (6.4-8.2) ALBUMIN 3.2 L g/dL (3.3-5.0) BILIRUBIN, TOTAL 0.3 mg/dL (0.0-1.0) ALKALINE PHOSPHATASE 120 H U/L (46-116) AST (SGOT) 14 L U/L (15-37) ALT (SGPT) 18 U/L (12-78) CPK 27 U/L (24-260) MAGNESIUM 1.8 mg/dL (1.8-2.4) TROPONIN I <0.05 ng/mL (0.00-1.5) TROPONIN REFERENCE RANGE:<0.1 NEGATIVE0.1-1.5 INDETERMINANT>1.5 POSITIVE ABG: (LATONIA: 07/18/2016 13:14) ( MsgRcvd 07/18/2016 13:32) Final results Test Result Flag Units (Reference) FIO2 40 % (20-101) ABG MODE OF DELIVERY NC MODIFIED CAREN TEST POSITIVE? YES ABG PATIENT RESP RATE 24 /MIN ARTERIAL BLOOD GAS SITE RR ARTERIAL BLOOD GAS pH 7.33 L (7.35-7.45) ABG PCO2 63.4 *H mmHg (35-45) ABG PO2 49.8 *L mmHg (80.0-100.0) ABG BASE EXCESS 6.9 H mmol/L (-6.0--6.0) ABG HCO3 33.7 *H mmol/L (20.0-26.0) ABG TCO2 35.6 *H mmol/L (24.0-30.0) ABG XkPeR0o 163.6 H mmHg (7.0-14.0) *NOTE: Normal rangeis based on aFIO2 of 21% ABG SAT O2 85.4 L % (95.1-100.0) ABG TOTAL HEMOGLOBIN 11.7 L g/dL (14.0-18.0) ABG O2 HEMOGLOBIN 83.4 *L % (95.0-100.0) ABG CARBOXYHEMOGLOBIN 2.2 H % (0.5-1.5) ABG METHEMOGLOBIN 0.1 L % (0.4-1.5) ABG RHEMOGLOBIN 14.3 % . Note - Tests: (Echo 06/27/16 1. Normal biventricular size and systolic function 2. Normal biatrial size 3. Aortic sclerosis without any evidence of aortic stenosis 4. Mild mitral annular calcification 5. Normal IVC with normal respiratory variation. 6. Normal estimated right ventricular systolic pressure). PROGRESS AND PROCEDURES Discussed case with hospitalist, (call returned 16:46 Dr. Gil. Will see pt in ED.). Disposition: Admitted to Acute Care. Admit decision based on need for monitoring, observation, IV antibiotics and stabilization of condition. CLINICAL IMPRESSION Bacterial pneumonia with hypoxemia. Empiric antibiotics given in the ED. No respiratory failure or sepsis. INSTRUCTIONS Follow-up: Blood pressure screening was not performed during this visit because the patient has an active diagnosis of hypertension. (Electronically signed by Baltazar Magaña Dr. 07/18/2016 21:22)
--- NOTE | 2016-07-18 16:47 | ED CLINICAL REPORT ---
Clinical Report - Physicians/Mid Levels [facility] [address] [place] [address] 07/18/2016 12:47 Patient: CHRISTIN CORDON Time Seen: 12:53; initial patient contact. Arrived- By private vehicle. Historian- patient. HISTORY OF PRESENT ILLNESS Chief Complaint: DYSPNEA. This started about 4 days ago and is still present. The dyspnea is described as moderate. The dyspnea is worsened by walking, exertion and cough. No improvement of dyspnea with rest or oxygen. The patient has had a cough and wheezing. No sputum production, fever, sweating episodes or chills. No chest pain or discomfort, calf pain, foot swelling or anxiety. No palpitations. Similar symptoms previously: Several times. Recent medical care: Not recently seen/assessed. REVIEW OF SYSTEMS No nausea, vomiting or fainting episodes. All systems otherwise negative, except as recorded above. PAST HISTORY Problems: Pneumonia. Dyspnea. Congestive Heart Failure. Heart Disease. Lower Extremity Pain. Abrasion(s). Contusion. Fall. Cellulitis. Changed Mental Status. Osteomyelitis. DVT/PE Risk Factors. Peripheral Vascular Disease. Headache. Immunizations. Diabetic Ulcer on R foot. Nephrolithiasis. Hypercholesterolemia. Diabetes Mellitus. Hypertension. Additional Surgeries: Amputation Lower Extremity. Back Surgery. Knee Surgery. Lithotripsy. Partial foot amputation. Toe amputation. Tonsillectomy. SOCIAL HISTORY Never smoker. No alcohol use or drug use. ADDITIONAL NOTES The nursing notes have been reviewed. PHYSICAL EXAM Vital Signs: 07/18/2016 12:54 BP: 135/116. HR: 85. RR: 19. O2 saturation: 79%. Temp: 97.9 F. Pain level now: 0/10. Have been reviewed. Hypertensive. Heart rate normal. Respiratory rate normal. Temperature normal. Oxygen saturation low. Appearance: Alert. No acute distress. Eyes: Eyes normal inspection. ENT: Pharynx normal. Neck: Normal inspection. No jugular venous distention. CVS: Normal heart rate and rhythm. Heart sounds normal. Respiratory: Moderate respiratory distress with accessory muscle use and retractions. Speaks short phrases. Moderately prolonged expirations. Moderately decreased air movement diffusely over both lungs. Expiratory moderate bilateral wheezes diffusely. No stridor, rales or rhonchi. Abdomen: Soft and nontender. No organomegaly. The bowel sounds are not abnormal. Skin: Skin warm and dry. No rash. Extremities: (L foot bandaged). Neuro: Oriented X 3. LABS, X-RAYS, AND EKG EKG: EKG time: (1316). No acute process. No acute ischemia. Normal EKG. Normal sinus rhythm. Rate: 73. Normal P waves. Normal CED. Normal QRS complex. Normal axis. Normal ST and T waves, QT and QTc. EKG unchanged when compared with prior EKG. (). The study has been interpreted contemporaneously by me. The study has been independently viewed by me. The EKG appears to be a good tracing. Interpretation time: 1316. Chest X-ray: (1. Normal biventricular size and systolic function 2. Normal biatrial size 3. Aortic sclerosis without any evidence of aortic stenosis 4. Mild mitral annular calcification 5. Normal IVC with normal respiratory variation. 6. Normal estimated right ventricular systolic pressure). Views: AP. Technique: good. The X-rays were independently viewed by me, interpreted by the radiologist and discussed with the radiologist. A comparison with prior films reveals that the findings are new. Lower Extremity Sonography: Negative exam. No compression abnormality noted. The exam was performed by a life support technician. The study was interpreted by the radiologist and discussed with the radiologist. Interpretation time: 16:36. Laboratory Tests: CBC w Diff: (LATONIA: 07/18/2016 13:07) ( MsgRcvd 07/18/2016 13:27) Final results Test Result Flag Units (Reference) WHITE BLOOD COUNT 6.7 K/uL (4.5-11.5) RED BLOOD COUNT 4.21 L M/uL (4.50-5.90) HEMOGLOBIN 12.0 L gm/dL (13.5-17.5) HEMATOCRIT 38.0 L % (41.0-53.0) MEAN CELL VOLUME 90 fL (80-100) MEAN CORPUSCULAR HGB 29 pg (26-34) MEAN CORPUSCULAR HGB CONC 32 g/dL (31-37) RED CELL DISTRIBUTION WIDTH 16.5 H % (11.6-14.8) PLATELET COUNT 329 K/uL (150-400) NEUTROPHIL % 77.7 H % (50-75) LYMPH % 14.8 L % (25-40) MONO % 6.3 % (3-14) EOSINOPHIL % 0.4 % (0-4) BASOPHIL % 0.8 % (0-2) [id number]: (LATONIA: 07/18/2016 13:07) ( [facility] 07/18/2016 13:35) Final results Test Result Flag Units (Reference) D-DIMER QUANTITATIVE 0.68 H ug/mLFEU (0.27-0.52) The primary value of this quantitative assay relates toits negative predictive value (i.e. exclusion) of pulmonaryembolism/deep vein thrombosis/DIC.Elevated levels of d-dimer may also occur with:, age, cancer, inflammation, liver disease,post-op, infection, hematoma, coronary disease, peripheralarteriopathy, bleeding disorders and thrombolytic treatment.Results should be correlated with other clinical andradiological data.Testing Methodology: Latex Immunoassay [id number]: (LATONIA: 07/18/2016 14:29) ( [facility] 07/18/2016 15:09) Final results Test Result Flag Units (Reference) LACTIC ACID SEPSIS PROTOCOL 1.2 mmol/L (0.4-2.0) [id number]: (LATONIA: 07/18/2016 13:07) ( [facility] 07/18/2016 14:50) Final results Test Result Flag Units (Reference) PROCALCITONIN <0.5 ng/mL (0-0.5) PCT Concentration: Interpretation : Risk/option for action PCT <=0.5 ng/mL : Systemic : Low risk forinfection(sepsis): progression to severeis not likely. : systemic infection.Local bacterial : CAUTION-PCT levelsinfection is : below 0.5 ng/mL do notpossible. : exclude an infection,because localizedinfections (withoutsystemic signs) may beassociated with suchlow levels. If PCT ismeasured very earlyafter a bacterialchallenge (usually <6hours), these valuesmay still be low. Inthis case PCT shouldbe re-assessed 6-24hours later. PCT >0.5 and : Systemic infection: Moderate risk for<= 2 ng/mL : (sepsis) is : progression to severepossible, but : systemic infection.other conditions : The patient should beare known to : closely monitoredelevate PCT. : both clinically andby re-assessing PCTwithin 6-24 hours. PCT > 2 ng/mL : Systemic infection: High risk for(sepsis) is likely: progression to severeunless other : systemic infection.causes are known. : PCT >= 10 ng/mL : Important systemic: High likelihood ofinflammatory : severe sepsis orresponse, almost : septic shock.exclusively due to:severe bacterial :sepsis or septic :shock. : BNP: (LATONIA: 07/18/2016 13:07) ( MsgRcvd 07/18/2016 13:47) Final results Test Result Flag Units (Reference) B-TYPE NATRIURETIC PEPTIDE 486 H pg/ml (5-100) CHEM 13 PANEL: (LATONIA: 07/18/2016 13:07) ( MsgRcvd 07/18/2016 13:39) Final results Test Result Flag Units (Reference) GLUCOSE 165 H mg/dL (70-110) BUN 25 H mg/dL (7-18) CREATININE 1.5 H mg/dL (0.6-1.3) Estimated GFR 51.64 mL/min Estimated GFR- >60 mL/min Note: Persistent reduction over 3 months in eGFR<60 mL/min/1.73 m2 defines CKD. Patients with eGFR values>=60 mL/min/1.73 m2 may also have CKD if evidence ofpersistent proteinuria. Additional information may be foundat [email or web address].org. SODIUM 141 mmol/L (136-145) POTASSIUM 4.8 mmol/L (3.5-5.1) CHLORIDE 103 mmol/L (98-107) CARBON DIOXIDE 35 H mmol/L (21-32) CALCIUM 8.9 mg/dL (8.5-10.1) TOTAL PROTEIN 8.4 H g/dL (6.4-8.2) ALBUMIN 3.2 L g/dL (3.3-5.0) BILIRUBIN, TOTAL 0.3 mg/dL (0.0-1.0) ALKALINE PHOSPHATASE 120 H U/L (46-116) AST (SGOT) 14 L U/L (15-37) ALT (SGPT) 18 U/L (12-78) CPK 27 U/L (24-260) MAGNESIUM 1.8 mg/dL (1.8-2.4) TROPONIN I <0.05 ng/mL (0.00-1.5) TROPONIN REFERENCE RANGE:<0.1 NEGATIVE0.1-1.5 INDETERMINANT>1.5 POSITIVE ABG: (LATONIA: 07/18/2016 13:14) ( MsgRcvd 07/18/2016 13:32) Final results Test Result Flag Units (Reference) FIO2 40 % (20-101) ABG MODE OF DELIVERY NC MODIFIED CAREN TEST POSITIVE? YES ABG PATIENT RESP RATE 24 /MIN ARTERIAL BLOOD GAS SITE RR ARTERIAL BLOOD GAS pH 7.33 L (7.35-7.45) ABG PCO2 63.4 *H mmHg (35-45) ABG PO2 49.8 *L mmHg (80.0-100.0) ABG BASE EXCESS 6.9 H mmol/L (-6.0--6.0) ABG HCO3 33.7 *H mmol/L (20.0-26.0) ABG TCO2 35.6 *H mmol/L (24.0-30.0) ABG FoYgN5m 163.6 H mmHg (7.0-14.0) *NOTE: Normal rangeis based on aFIO2 of 21% ABG SAT O2 85.4 L % (95.1-100.0) ABG TOTAL HEMOGLOBIN 11.7 L g/dL (14.0-18.0) ABG O2 HEMOGLOBIN 83.4 *L % (95.0-100.0) ABG CARBOXYHEMOGLOBIN 2.2 H % (0.5-1.5) ABG METHEMOGLOBIN 0.1 L % (0.4-1.5) ABG RHEMOGLOBIN 14.3 % . Note - Tests: (Echo 06/27/16 1. Normal biventricular size and systolic function 2. Normal biatrial size 3. Aortic sclerosis without any evidence of aortic stenosis 4. Mild mitral annular calcification 5. Normal IVC with normal respiratory variation. 6. Normal estimated right ventricular systolic pressure). PROGRESS AND PROCEDURES Discussed case with hospitalist, (call returned 16:46 Dr. Gil. Will see pt in ED.). Disposition: Admitted to Acute Care. Admit decision based on need for monitoring, observation, IV antibiotics and stabilization of condition. CLINICAL IMPRESSION Bacterial pneumonia with hypoxemia. Empiric antibiotics given in the ED. No respiratory failure or sepsis. INSTRUCTIONS Follow-up: Blood pressure screening was not performed during this visit because the patient has an active diagnosis of hypertension. (Electronically signed by Baltazar Magaña Dr. 07/18/2016 21:22)
--- NOTE | 2016-07-18 16:48 | ED ORDER SUMMARY ---
..... Patient: CHRISTIN CORDON OrderSheet [facility] VisitID: [id number] [place] [address] 56y, M Registration Date/Time: 07/18/2016 ORDER SHEET Weight: 127.0 kg (stated) Allergies: All narcotics can cause itching- give benadryl before meds , Hydromorphone, Promethazine , Pt had hallucinations when given dilaudid and morphone at hospital same visit , Sulfa Antibiotics GENERAL ORDERS: Chest 1V Urgent (13:04 07/18/2016 Yossi Davis) (13:11 Kristen R.N.) Cardiac Panel Stat (13:06 07/18/2016 Yossi Davis) (13:09 Jean Claude R.N.) BNP Urgent (13:06 07/18/2016 Yossi Davis) (13:09 Jean Claude R.N.) D-Dimer Urgent (13:06 07/18/2016 Yossi Davis) (13:09 Jean Claude R.N.) EKG - ER Stat (13:06 07/18/2016 Yossi Davis) (Ack 13:14 PWeiler ER Tech1) (13:14 PWeiler ER Tech1) ABG (G) Urgent (13:14 07/18/2016 Yossi Davis) (Ack 13:17 PWeiler ER Tech1) (13:32 PWeiler ER Tech1) Blood Culture (No) (N/A) Urgent (14:07 07/18/2016 Yossi Davis) (Ack 14:11 PWeiler ER Tech1) (14:34 Shelton R.N.) Lactic Acid for Sepsis Protocol Urgent (14:08 07/18/2016 Yossi Davis) (Ack 14:11 PWeiler ER Tech1) (14:34 EHassan R.N.) PCT (Procalcitonin) Urgent (14:08 07/18/2016 Yossi Davis) (Ack 14:11 PWeiler ER Tech1) (14:34 EHmuniran R.N.) US Venous Left Urgent (15:49 07/18/2016 Yossi Davis) (Ack 15:53 [facility] (16:49 MCook R.N.) MEDICATION ORDERS: DuoNeb Neb Tx 1 unit dose (NOW) (13:04 07/18/2016 Yossi Davis) (13:06 KEpting) Prednisone PO 40 mg (NOW) (13:05 07/18/2016 Yossi Davis) (13:13 Chaparrita R.N.) Albuterol Neb Tx 10 mg (NOW) (13:31 07/18/2016 Yossi Davis) (Cancelled: Physician Order13:39 Yossi Davis) Albuterol Neb Tx 7.5 mg (NOW) (13:39 07/18/2016 Yossi Davis) (13:45 KEpting) Amlodipine PO 5 mg (NOW) (16:16 07/18/2016 Yossi Davis) (Ack 16:24 MCook R.N.) (16:41 MCook R.N.) Levofloxacin PO 750 mg (NOW) (16:17 07/18/2016 Yossi Davis) (Ack 16:24 MCook R.N.) (16:41 MCook R.N.) Oxycodone-APAP PO 5/325 mg (HIGH ALERT MEDICATION, NOW) (16:17 07/18/2016 Yossi Davis) (Ack 16:24 MCook R.N.) (16:41 MCook R.N.) IV FLUIDS: IV Saline Lock (13:06 07/18/2016 Yossi Davis) (13:16 Chaparrita R.N.) Ceftriaxone IV 1 gm/50mL (NOW) (16:44 07/18/2016 Yossi Davis) (Ack 16:49 MCook R.N.) (16:54 MCook R.N.) ORDER SHEET NOTES: [Electronically signed by Isaías Pacheco R.N. (19:41 07/18/2016)] [Electronically signed by Baltazar Magaña Dr. (21:22 07/18/2016)] [Electronically locked/signed by Isaías Pacheco R.N. (19:41 07/18/2016)]
--- NOTE | 2016-07-18 16:48 | ED ORDER SUMMARY ---
..... Patient: CHRISTIN CORDON OrderSheet [facility] VisitID: [id number] [place] [address] 56y, M Registration Date/Time: 07/18/2016 ORDER SHEET Weight: 127.0 kg (stated) Allergies: All narcotics can cause itching- give benadryl before meds , Hydromorphone, Promethazine , Pt had hallucinations when given dilaudid and morphone at hospital same visit , Sulfa Antibiotics GENERAL ORDERS: Chest 1V Urgent (13:04 07/18/2016 Yossi Davis) (13:11 Kristen R.N.) Cardiac Panel Stat (13:06 07/18/2016 Yossi Davis) (13:09 Jean Claude R.N.) BNP Urgent (13:06 07/18/2016 Yossi Davis) (13:09 Jean Claude R.N.) D-Dimer Urgent (13:06 07/18/2016 Yossi Davis) (13:09 Jean Claude R.N.) EKG - ER Stat (13:06 07/18/2016 Yossi Davis) (Ack 13:14 PWeiler ER Tech1) (13:14 PWeiler ER Tech1) ABG (G) Urgent (13:14 07/18/2016 Yossi Davis) (Ack 13:17 PWeiler ER Tech1) (13:32 PWeiler ER Tech1) Blood Culture (No) (N/A) Urgent (14:07 07/18/2016 Yossi Davis) (Ack 14:11 PWeiler ER Tech1) (14:34 Shelton R.N.) Lactic Acid for Sepsis Protocol Urgent (14:08 07/18/2016 Yossi Davis) (Ack 14:11 PWeiler ER Tech1) (14:34 EHassan R.N.) PCT (Procalcitonin) Urgent (14:08 07/18/2016 Yossi Davis) (Ack 14:11 PWeiler ER Tech1) (14:34 EHmuniran R.N.) US Venous Left Urgent (15:49 07/18/2016 Yossi Davis) (Ack 15:53 [facility] (16:49 MCook R.N.) MEDICATION ORDERS: DuoNeb Neb Tx 1 unit dose (NOW) (13:04 07/18/2016 Yossi Davis) (13:06 KEpting) Prednisone PO 40 mg (NOW) (13:05 07/18/2016 Yossi Davis) (13:13 Chaparrita R.N.) Albuterol Neb Tx 10 mg (NOW) (13:31 07/18/2016 Yossi Davis) (Cancelled: Physician Order13:39 Yossi Davis) Albuterol Neb Tx 7.5 mg (NOW) (13:39 07/18/2016 Yossi Davis) (13:45 KEpting) Amlodipine PO 5 mg (NOW) (16:16 07/18/2016 Yossi Davis) (Ack 16:24 MCook R.N.) (16:41 MCook R.N.) Levofloxacin PO 750 mg (NOW) (16:17 07/18/2016 Yossi Davis) (Ack 16:24 MCook R.N.) (16:41 MCook R.N.) Oxycodone-APAP PO 5/325 mg (HIGH ALERT MEDICATION, NOW) (16:17 07/18/2016 Yossi Davis) (Ack 16:24 MCook R.N.) (16:41 MCook R.N.) IV FLUIDS: IV Saline Lock (13:06 07/18/2016 Yossi Davis) (13:16 Chaparrita R.N.) Ceftriaxone IV 1 gm/50mL (NOW) (16:44 07/18/2016 Yossi Davis) (Ack 16:49 MCook R.N.) (16:54 MCook R.N.) ORDER SHEET NOTES: [Electronically signed by Isaías Pacheco R.N. (19:41 07/18/2016)] [Electronically signed by Baltazar Magaña Dr. (21:22 07/18/2016)] [Electronically locked/signed by Isaías Pacheco R.N. (19:41 07/18/2016)]
--- NOTE | 2016-07-18 16:48 | ED NURSING NOTES ---
Clinical Report - Nurses [facility] [place] [address] 07/18/2016 12:47 Patient: CHRISTIN CORDON TRIAGE Triage time 12:54. Chief Complaint: SHORTNESS OF BREATH, DIFFICULTY BREATHING and WHEEZING. --13:01 Sheriff Feliz R.N. 12:54 07/18/16. BP: 135/116. HR: 85. RR: 19. O2 saturation: 79%. Temp: 97.9 F. Pain level now: 0. --13:01 Sheriff Feliz R.N. Chief Complaint: (-). ( .). --15:54 Kathya Mendez R.N. Weight: 127 kg stated. Height/Length: 77 inches Per Patient. BMI: 33.2. --13:00 Sheriff Feliz R.N. Medications Diclofenac Sodium ER Oral 75 mg. Hydrochlorothiazide Oral 50 mg, daily. Levaquin Oral 750 mg, daily. Losartan Potassium Oral (Tablet 100 mg) 1 tablet, daily. Omeprazole Oral 20 mg, daily. --12:57 Sheriff Feliz R.N. AmLODIPine Besylate Oral 10 mg, daily. Carvedilol Oral (Tablet 25 mg), BID. DULoxetine HCl Oral (Capsule Delayed Release Particles 20 mg) 60MG, DAILY. Gabapentin Enacarbil ER Oral 300-600 MG, HS. MetFORMIN HCl Oral (Tablet 1000 mg), 2x a day. OxyCODONE HCl ER Oral 5mg, QID. --12:57 Luann Lopez R.N. OxyCONTIN Oral 15 MG, 2x a day. --18:06 Luann Lopez R.N. The following entry was struck by Luann Lopez R.N., 18:11 (07/18/16) Reason - other(NO LONGER USES). <<[facility] ENTRY-- Symbicort Inhalation. --12:57 Sheriff Feliz R.N. --END STRIKE>> The following entry was struck by Luann Lopez R.N., 18:10 (07/18/16) Reason - other(NO LONGER USES). <<[facility] ENTRY-- Systane Ophthalmic. --12:57 Sheriff Feliz R.N. --END STRIKE>> The following entry was struck and corrected by Luann Lopez R.N., 18:08 (07/18/16) Reason for correction - other(correction). <<[facility] ENTRY-- DULoxetine HCl Oral (Capsule Delayed Release Particles 20 mg) 1 capsule. --12:57 Sheriff Feliz R.N. --END STRIKE>> The following entry was struck and corrected by Luann Lopez R.N., 18:08 (07/18/16) Reason for correction - other(correction). <<[facility] ENTRY-- Carvedilol Oral (Tablet 12.5 mg) 1 tablet, BID. --12:57 Sheriff Feliz R.N. --END STRIKE>> The following entry was struck and corrected by Luann Lopez R.N., 18:07 (07/18/16) Reason for correction - other(correction). <<[facility] ENTRY-- Gabapentin Enacarbil ER Oral. --12:57 Sheriff Feliz R.N. --END STRIKE>> The following entry was struck and corrected by Luann Lopez R.N., 18:07 (07/18/16) Reason for correction - other(correction). <<[facility] ENTRY-- MetFORMIN HCl Oral (Tablet 1000 mg), daily. --12:57 Sheriff Feliz R.N. --END STRIKE>> The following entry was struck and corrected by Luann Lopez R.N., 18:06 (07/18/16) Reason for correction - other(correction). <<[facility] ENTRY-- OxyCODONE HCl ER Oral 15mg BID . --12:57 Sheriff Feliz R.N. --END STRIKE>> The following entry was struck and corrected by Luann Lopez R.N., 18:05 (07/18/16) Reason for correction - other(correction). <<[facility] ENTRY-- AmLODIPine Besylate Oral 5 mg, 2x a day. --12:57 Sheriff Feliz R.N. --END STRIKE>>. Allergies All narcotics can cause itching- give benadryl before meds . Hydromorphone. ((pills caused itching, but IV dilaudid does ok) ) Promethazine .(itching) Pt had hallucinations when given dilaudid and morphone at hospital same visit . Sulfa Antibiotics.(hives) --12:57 Sheriff Feliz R.N. History Arrived by private vehicle. Historian: patient. Accompanied by family. ( Take 02 4L at home, breathing getting worst since Sunday.). SOCIAL HX: No alcohol use or drug use. FALL RISK ASSESSMENT: Fall risk assessment completed. No fall risk identified. NUTRITIONAL RISK ASSESSMENT: The nutritional risk assessment revealed no deficiencies. FUNCTIONAL ASSESSMENT: Functional assessment: no impairments noted. LEARNING NEEDS ASSESSMENT: The learning needs assessment revealed no barriers. SKIN INTEGRITY ASSESSMENT: Skin integrity risk assessment completed. No skin integrity risk identified. --13:01 Sheriff Feliz R.N. PROBLEMS: Pressure Ulcer. Hypoxia. Renal Insufficiency. Pneumonia. Dyspnea. Congestive Heart Failure. Heart Disease. Lower Extremity Pain. Abrasion(s). Contusion. Fall. Cellulitis. Changed Mental Status. Osteomyelitis. DVT/PE Risk Factors. Peripheral Vascular Disease. Headache. Immunizations. Diabetic Ulcer on R foot. Nephrolithiasis. Hypercholesterolemia. Diabetes Mellitus. Hypertension. --12:58 Sheriff Feliz R.N. Asthma [RuleOut]. Osteomyelitis [RuleOut]. --12:58 Sheriff Feliz R.N. PHYSICAL ASSESSMENT To room via wheelchair. GENERAL / NEURO / PSYCH: Alert. Oriented X 4. Appears anxious. HEENT: Mucous membranes are pink. RESPIRATORY: Moderate respiratory distress. The patient can speak in full sentences. Accessory muscle use. Expiratory wheezes present. CVS: Capillary refill less than 2 seconds. SKIN: Skin is warm and dry. Normal skin turgor. --13:01 Sheriff Feliz R.N. RESPIRATORY: No respiratory distress. Respirations not labored. The patient can speak in full sentences. Inspiratory wheezes in the right and left upper lung anteriorly; wheezes audible without auscultation. SKIN: Skin is warm and dry. --16:29 Isaías Pacheco R.N. NURSING PROGRESS NOTES Oxygen administered. Head of bed elevated. Two patient identifiers checked. Call light placed in reach. Side rails up x 2. Bed placed in lowest position. Brakes of bed on. --13:02 Sheriff Feliz R.N. 13:06 07/18/2016 Duoneb (Ipratropium-Albuterol) Neb TX 1 unit dose given. --13:06 Yaz Serrano 13:13 07/18/2016 Prednisone PO 40 mg given. Allergies verified and confirmed 5 rights. --13:13 Sheriff Feliz R.N. EKG time: (1316). EKG was ordered, performed by a tech and shown to the ED physician. --13:16 Eneida Orellana ER Tech1 13:16 07/18/2016 Site #1 started via IV in the right antecubital space with an 20g angiocath, with aseptic technique and good blood return; one attempt. Blood drawn: rainbow set. Labeled in the presence of the patient and sent to the lab. Saline lock flushed with 10 mL saline. --13:16 Sheriff Feliz R.N. Care transferred and report received (GAGANDEEP Villalobos). --13:43 Melanie Koehler R.N. 13:45 07/18/2016 Albuterol Neb TX 3 unit dose given. --13:45 Yaz Serrano 13:15 07/18/16. HR: 77. RR: 21. O2 saturation: 84% on nasal cannula at 2 liters/minute. --13:56 Melanie Koehler R.N. late entry - 13:15 PM. --13:56 Melanie Koehler R.N. 13:30 07/18/16. HR: 75. RR: 21. O2 saturation: 87% on nasal cannula at 2 liters/minute. --13:57 Melanie Koehler R.N. late entry - 13:30 PM. --13:57 Melanie Koehler R.N. 13:45 07/18/16. HR: 78. RR: 22. O2 saturation: 93% on nasal cannula at 2 liters/minute. --14:08 Melanie Koehler R.N. Oxygen administered by nasal cannula at 2 liters. Pulse oximeter and NIBP monitor placed on patient. Reassurance given. The patient is calm. Overall patient status- he states feels better. ( Pt currently on breathing treatment, tolerating well, oxygenation up to 93% resting. Comfort provided). RESPIRATORY: Decreased breath sounds in the bases bilaterally. Expiratory bilateral wheezes in the bases; wheezes audible without auscultation. CVS: Denies chest pain. Two patient identifiers checked. Call light placed in reach. --14:08 Melanie Koehler R.N. Patient ID band checked for patient name, birthdate and medical record number: patient confirmed. Blood samples drawn from the left antecubital space with 22g butterfly by nurse per protocol ; labeled in presence of the patient and sent to lab: blood culture (1st set). Reassurance given. The patient is calm. Overall patient status is improved- he states feels better. Two patient identifiers checked. Call light placed in reach. --14:35 Melanie Koehler R.N. ( .). --15:53 Kathya Mendez R.N. 14:54 07/18/2016 Albuterol Neb TX discontinued due to improvement in patient condition. --15:54 Melanie Koehler R.N. 15:55 07/18/16. BP: 160/87 (large adult cuff) taken on the left arm, via an automated monitor, while lying. HR: 81. RR: 17. O2 saturation: 91% on nasal cannula at 2 liters/minute. Temp: 100.3 F (oral). Pain level now: 0/10. --16:01 Melanie Koehler R.N. Oxygen administered by nasal cannula at 2 liters. Pulse oximeter and NIBP monitor placed on patient; monitor alarms on. Reassurance given. Reassessment after oxygen administered and medication administered. He is calm and has had no adverse reaction. Overall patient status is the same- he states feels the same. RESPIRATORY: Expiratory wheezes present; wheezes audible without auscultation. SKIN: Skin color within normal limits. Call light placed in reach. Side rails up x 1. Bed placed in lowest position. Brakes of bed on. --16:01 Melanie Koehler R.N. Care transferred and report received (from Melanie, RN for end of shift coverage). --16:12 Isaías Pacheco R.N. ( Pt is now getting US of the leg. Left leg noted to be in a cast and a leg boot, unable to see wound, pt at first hesitant of being inspected, now open to it. Pt concerned about his "meds and did not take them this am" being addressed with Dr. Magaña. Comfort provided, food given, will monitor). --16:21 Melanie Koehler R.N. 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 Choe, ED staff may remove the cast on his L leg should we need access to his LLE. US at bedside states they may need the cast removed to evaluate area beneath the upper 2" of cast. MD aware.). --16:26 Isaías Pacheco R.N. 16:37 07/18/16. BP: 152/81. HR: 69. RR: 20. O2 saturation: 89% on nasal cannula at 4 liters/minute. Pain level now: 0/10. --16:40 Isaías Pacheco R.N. 16:41 07/18/2016 Amlodipine PO Tablets 5 mg given. Allergies verified and confirmed 5 rights. --16:41 Isaías Pacheco R.N. 16:41 07/18/2016 Levofloxacin PO Tablets 750 mg given. Allergies verified and confirmed 5 rights. --16:41 Isaías Pacheco R.N. 16:41 07/18/2016 Oxycodone-APAP (Oxycodone-Acetaminophen) PO 5/325 mg Tablets 1 tab given. Allergies verified, confirmed 5 rights and sedative warning given to the patient. --16:41 Isaías Pacheco R.N. ( Monitoring VS at bedside, US completed, tech gave report to MD that US was negative. BP still elevated, Pt now saying that he did take his AM meds today despite what was told to previous RN earlier. Pt's states that she did not see Pt take his meds but that she also can't say that he didn't take them. Pt listed Levaquin on his med list for his chronic diabetic ulcer but then after he took it stated that he does not normally take this at home. MD at bedside discussing admission.). --16:48 Isaías Pacheco R.N. 16:54 07/18/2016 Started 1 gm of Ceftriaxone IVPB in bag #1 50 mL; at 100 mL/hr over 30 minute(s) via site #1 via IV pump. Allergies verified and confirmed 5 rights. IV patency established. IV site checked: no pain, redness, or swelling. IV flushed thoroughly pre- and post-medication administration. Completed per protocol. --16:54 Isaías Pacheco R.N. ( Pt to be admitted, discussed admission process with Pt and spouse, Pt awaiting eval from Dr. Gil.). --16:56 Isaías Pacheco R.N. ( RT in evaluate Pt post breathing treatments. Pt is in no distress, RT states his sats are baseline in the mid to high 80s.). --17:12 Isaías Pacheco R.N. 17:03 07/18/16. BP: 178/86 taken while lying. HR: 82. RR: 20. O2 saturation: 92% on nasal cannula at 4 liters/minute. Pain level now: 0/10. --17:12 Isaías Pacheco R.N. ( Dr Gil at bedside assessing Pt.). --17:14 Isaías Pacheco R.N. Intake & Output Urine: 400 mL, with return of yellow-colored urine. --18:41 Isaías Pacheco R.N. DISPOSITION / DISCHARGE Departure time: 18:36 Jul 18 2016. Condition at departure: improved and stable. Admitted to Acute Care (18:35 Jul 18 2016). Report was given to a nurse via a phone call. Report included patient's care, treatment, medications, reviewed medication reconcilliation, and condition (including any recent changes or anticipated changes). All questions were answered. Report was acknowledged and care was transferred. (to GAGANDEEP Gaytan on AC). ( Pt left in stable condition, VSS, afebrile, belongings in Pt's possession, spouse accompanying Pt upstairs to AC. Facility Tech provided transport.). --18:36 Isaías Pacheco R.N. 18:35 07/18/16. BP: 161/76. HR: 72. RR: 18. O2 saturation: 94% on nasal cannula at 4 liters/minute. Pain level now: 0/10. --18:36 Isaías Pacheco R.N. 18:36 07/18/16. Temp: deferred. --18:37 Isaías Pacheco R.N. Locked/Released at 07/18/2016 19:41 by Isaías Pacheco R.N.
--- NOTE | 2016-07-18 17:29 | DIAGNOSTIC IMAGING REPORT ---
PROCEDURE: US VENOUS - LEFT EXT INDICATION: SWELLING TECHNIQUE: Duplex sonography of the deep venous system in the left lower extremity was performed. Compression and augmentation techniques were used. COMPARISON: None. FINDINGS: Each interrogated segment of deep vein from the common femoral vein into the calf veins demonstrates normal compressibility, augmentation and/or color Doppler flow without filling defect. No evidence of significant soft-tissue edema, soft-tissue mass or cyst. IMPRESSION: 1. No deep venous thrombosis in the left lower extremity.
[2016-07-18 18:52] VITALS: BP 161/78
--- NOTE | 2016-07-18 18:56 | Progress Note ---
Subjective General Admission History and Physical Examination Patient Name: Harley Levi Patient ID: [id number] Admission Date: 07/18/2016 Primary Care Provider: PCP , Dr. Fish Attending Physician: Aura Gil M.D. Admitting Physician: Aura Gil MD Code Status: Full code; Room: 207 SUBJECTIVE Historian: Patient himself, Harley Levi Reliability: Good Chief Complaint: Shortness of breath Wheeze Cough History of Present Illness: The patient is a 56-year-old male with a past medical history of diabetic ulcers , diabetes mellitus (controlled), hypertension, obstructive pulmonary disease ( asthma), on nighttime home O2 that is presenting with a 4 day day history of dyspnea, cough and wheeze. He states that his respiratory status has gradually worsened over the past 3-4 days. Patient states that he increase his oxygen at night to 4 L nasal cannula without significant improvement. Patient has been in to wound care clinic on multiple occasions for ulcerations of the right heel of the foot. Patient was previously on levofloxacin for the wound. This has subsequently stopped. Patient is followed by Dr. Kaplan for his wound. In addition to the dyspnea , which is worsened by activity. Patient is reporting of a cough with sputum production. Patient states that he's also had fevers and associated sweating episodes. Patient is not able to maintain his same level of activity due to the dyspnea. Patient appeared to the emergency department due to worsening respiratory symptoms. Patient was hypoxic on admission to the emergency department. Patient had difficult time maintaining sats above 90. Patient was worked up through emergency department CVAs. ABG done in the emergency department revealed a PCO2 of 63, PO2 of 49.8, pH of 7.33. Patient was found to be mildly renal insufficiency; BUN of 32, creatinine 1.5. D-dimer was elevated to 0.68. Doppler studies of lower extremities performed which revealed no DVT. Patient had low probability of a PE, and hypoxia was determined to be related to the pulmonary infiltrates. Therefore, no further imaging was performed.. Patient's chest x-ray showed a retrocardial infiltrate. Patient was started on IV antibiotics, maintain sats above 92. EKG and echocardiogram done previously were reviewed. PAST MEDICAL HISTORY Illnesses: 1. Illnesses: Type 2 diabetes mellitus, insulin-requiring with peripheral neuropathy. 2. Hypertension. 3. Nephrolithiasis. 4. Chronic back pain. 5. Hypertension. 6. Depression. 7, Diabetic foot ulcerations Allergies: 1. SULFA. 2. BEE STINGS. Medications: 1. Aspirin 81 mg p.o. daily. 2. Amlodipine 5 mg twice a day. 3. Hydroxyzine 50 mg p.o. daily p.r.n. for itching. 4. Metformin 1000 mg p.o. b.i.d. 5. OxyContin 50 mg twice a day 6. Cozaar 100 mg p.o. daily. 7. Prilosec 20 mg p.o. daily. 9. Duloxetine 20 mg by mouth daily 10. Hydrochlorothiazide 50 mg by mouth daily 11. Gabapentin 300 mg twice a day 12. Carvedilol 12.5 mg by mouth twice a day Surgery: 1. Transmetatarsal amputation, left foot. 2. Partial amputation, right second toe. 3. Back surgery 4. Tonsillectomy. Injuries: 1. No significant injuries. Hospitalizations: 1. For previously mentioned surgery and medical problems. FAMILY HISTORY Parents: 1. Father, massive heart attack at the age of 49 2. Mother, alive and healthy Children: Adult children SOCIAL HISTORY 1. Marital Status: , living with his 2. Muslim: Unknown 3. Education: High school (+) 4. 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 Occupational health exposures: Disability HABITS 1. Tobacco: No current or previous use of tobacco 2. Drugs: None 3. Alcohol: None 4. Caffeine: None known HEALTH SUPERVISION Item/Test Record is not available IMMUNIZATIONS: 1. Pneumococcal: [pneumonia] 2. Influenza: [flu] 3. Tetanus: [tet] ADVANCED DIRECTIVES: 1. Living well: Not available 2. POLST: None 3. Code Status: Full code; limitations 4. Durable Power Risk Advisor Health care: 5. Donor card: none REVIEW OF SYSTEMS Remarkable for those things stated in the history of present illness and past medical history. Review of system completed with the following notable findings : ROS Constitutional Fever, Sweats. Eyes Denies: Conjunctival Inflammation. ENT Denies: Nasal Discharge. Respiratory Cough, SOB w/exertion, Wheezing, Sputum. Cardiovascular Denies: Palpitations, Orthopnea. Gastrointestinal Denies: Diarrhea. Genitourinary Denies: Frequency. Musculoskeletal Leg Pain, Foot Pain. Neurological Other (neuropathies). Physical Exam Vital Signs / I&Os BP: 135/116. HR: 85. RR: 19. O2 saturation: 79%. Temp: 97.9 F. Pain level now: 0 /10. General Appearance Oriented X3, Cooperative, Mild distress, anxiousness HEENT PERRLA, EOMI Lungs seen with moderate respiratory distress, using assessment muscles with retractions. Moderate prolonged expirations. There appears to be decrease her movements diffusely in both lungs bilateral wheeze. No stridor, rales or rhonchi Neck No JVD, No thyromegaly Cardiovascular Regular rate and rhythm, Normal S1 and S2, No murmurs, gallops, rubs Abdomen Soft, No tenderness Extremities No clubbing, No edema, left foot/lower leg cast Multiple bruises, small cuts on the lower extremity Neurological Normal speech, Cranial nerves intact Psych/Mental Status Mood normal LAB Results Laboratory Tests 07/18 07/18 07/18 07/18 07/18 1307 1307 1307 1314 1429 Blood Gas Sample Site RR Total CO2 (24.0 - 30.0 mmol/L) 35.6 ABG pH (7.35 - 7.45) 7.33 ABG pCO2 at Pt Temp (35 - 45 mmHg) 63.4 ABG pO2 at Pt Temp (80.0 - 100.0 mmHg) 49.8 ABG HCO3 (20.0 - 26.0 mmol/L) 33.7 ABG O2 Sat Calc/Ko (95.1 - 100.0 %) 85.4 ABG Base Excess (-6.0 - -6.0 mmol/L) 6.9 ABG Reduced Hgb (%) 14.3 ABG Carboxyhemoglobin (0.5 - 1.5 %) 2.2 ABG Methemoglobin (0.4 - 1.5 %) 0.1 Khris Test YES Other Total Hgb (14.0 - 18.0 g/dL) 11.7 A-a O2 Gradient (7.0 - 14.0 mmHg) 163.6 Hgb O2 Saturation (95.0 - 100.0 %) 83.4 Respiration Rate (/MIN) 24 Vent Mode NC FiO2 (20 - 101 %) 40 Chemistry Plasma Sodium (136 - 145 mmol/L) 141 Plasma Potassium (3.5 - 5.1 mmol/L) 4.8 Plasma Chloride (98 - 107 mmol/L) 103 CO2 (Enzymatic) (21 - 32 mmol/L) 35 BUN (7 - 18 mg/dL) 25 Creatinine (0.6 - 1.3 mg/dL) 1.5 Est GFR ( Amer) (mL/min) >60 Est GFR (Non-Af Amer) (mL/min) 51.64 Glucose (70 - 110 mg/dL) 165 Lactic Acid (0.4 - 2.0 mmol/L) 1.2 Plasma Calcium (8.5 - 10.1 mg/dL) 8.9 Plasma Magnesium (1.8 - 2.4 mg/dL) 1.8 Total Bilirubin (0.0 - 1.0 mg/dL) 0.3 AST (15 - 37 U/L) 14 ALT (12 - 78 U/L) 18 Alkaline Phosphatase (46 - 116 U/L) 120 Creatine Kinase (24 - 260 U/L) 27 Troponin (0.00 - 1.5 ng/mL) <0.05 B-Natriuretic Peptide (5 - 100 pg/ml) 486 Total Protein (6.4 - 8.2 g/dL) 8.4 Albumin (3.3 - 5.0 g/dL) 3.2 Procalcitonin (0 - 0.5 ng/mL) <0.5 Coagulation D-Dimer, Quantitative (0.27 - 0.52 ug/mLFEU) 0.68 Hematology WBC (4.5 - 11.5 K/uL) 6.7 RBC (4.50 - 5.90 M/uL) 4.21 Hgb (13.5 - 17.5 gm/dL) 12.0 Hct (41.0 - 53.0 %) 38.0 MCV (80 - 100 fL) 90 MCH (26 - 34 pg) 29 RDW (11.6 - 14.8 %) 16.5 Neut % (Auto) (50 - 75 %) 77.7 Lymph % (Auto) (25 - 40 %) 14.8 [place] % (Auto) (3 - 14 %) 6.3 Eos % (Auto) (0 - 4 %) 0.4 Baso % (Auto) (0 - 2 %) 0.8 Plt Count, EDTA (150 - 400 K/uL) 329 PUBS MCHC (31 - 37 g/dL) 32 Microbiology Date/Time Procedure - Status Source Growth 07/18 1428 Blood Culture - RECD BLOOD 07/18 1428 Blood Culture - RECD BLOOD Assessment and Plan Problem List 1. Pneumonia Plan Patient has had 4 days of worsening cough with reduction and dyspnea on exertion. Patient previously found to have pneumonia which was treated. Patient has had workup again for the same symptomatic changes. Seen with a retrocardial infiltrate. Started on IV ceftriaxone plus by mouth levofloxacin. Patient is a history of diabetes with multiple diabetic ulcerations. Prolonged hypertensive history. Elevated d-dimer, with no evidence of DVTs. On Doppler study lower extremity. Low probability of PE. We will however watch for any decline in respiratory status. Contrast infusion cution with renal insufficiency. Nasal cannula O2 support sats above 92% DuaNebs q 6 hours. 2. Hypoxia Plan Hypoxia on admission. Likely related to pneumonia with history of obstructive pulmonary disease. The pulmonary disease, however, is 9 and a smoking history. Patient is on home O2 at night. Continue to maintain sats above 92%. DuoNeb's every 6 hours. 3. Hypertension Status Chronic Onset Date Unknown Plan Patient had a long history of hypertension. Continue and resume home medication which includes a Cozaar 100 mg daily, Hydrochlorothiazide 50 mg daily Consider chlorthalidone in an replacement of the hydrochlorothiazide.. 4. Diabetes mellitus Status Chronic Onset Date Unknown Plan Long history of diabetes mellitus on single agent metformin. Monitor blood sugars before meals and at bedtime Moderate sliding scale for diabetic management. 5. Dyspnea Plan Dyspnea on exertion. Related to the hypoxic event and secondary ulceration related to the pulmonary infiltrate. Monitor vitals; continue the O2 keep sats above 92% Walk test before discharge. E&M Codes Admission: Inpt-High/86854
[2016-07-18] MEDS ORDERED: DICLOFENAC SODI75 MG (20:02)
[2016-07-18] MEDS ORDERED: CYMBALTA20 MG PO (20:04)
[2016-07-18] MEDS ORDERED: SYMBICORT1 AE1 (20:11)
--- NOTE | 2016-07-18 21:22 | ED MED RECONCILIATION SUMMARY ---
Patient: CHRISTIN CORDON Medication Reconciliation Report [facility] VisitID: [id number] [address] [place] [address] 56y, M Registration Date/Time: 07/18/2016 Weight: 127.0 kg Height/Length: 77 in. BMI: 33.2 ALLERGIES: All narcotics can cause itching- give benadryl before meds , Hydromorphone, Promethazine , Pt had hallucinations when given dilaudid and morphone at hospital same visit , Sulfa Antibiotics The patient's Home Medications are listed below: THE FOLLOWING MEDICATIONS NEED TO BE RECONCILED: AmLODIPine Besylate Oral 10 mg, daily Carvedilol Oral (25 mg), BID Diclofenac Sodium ER Oral 75 mg DULoxetine HCl Oral (20 mg) 60MG, DAILY Gabapentin Enacarbil ER Oral 300-600 MG, HS Hydrochlorothiazide Oral 50 mg, daily Levaquin Oral 750 mg, daily Losartan Potassium Oral (100 mg) 1 tablet, daily MetFORMIN HCl Oral (1000 mg), 2x a day Omeprazole Oral 20 mg, daily OxyCODONE HCl ER Oral 5mg, QID OxyCONTIN Oral 15 MG, 2x a day The source(s) of the original Home Medication information: Not obtained. The following Medications were given to the patient in the Emergency Department: Duoneb [Neb Tx] Neb TX 1 unit dose, administered: 07/18/2016 1:06:00 PM Prednisone [PO] PO 40 mg, administered: 07/18/2016 1:13:00 PM Albuterol [Neb Tx] Neb TX 3 unit dose, administered: 07/18/2016 1:45:00 PM Amlodipine [PO] PO 5 mg, administered: 07/18/2016 4:41:00 PM Levofloxacin [PO] PO 750 mg, administered: 07/18/2016 4:41:00 PM Oxycodone-APAP [PO] PO 1 tab, administered: 07/18/2016 4:41:00 PM Ceftriaxone [IVPB] IVPB bolus 0, then 1 gm 100 mL/hr, administered: 07/18/2016 4:54:00 PM The following Medications were prescribed to the patient: None.
--- NOTE | 2016-07-18 21:22 | ED DISCHARGE INSTRUCTIONS ---
Patient: CHRISTIN CORDON General Instructions [facility] VisitID: [id number] [address] [place] [address] 56y, M Registration Date/Time: 07/18/2016 Bacterial pneumonia with hypoxemia. Empiric antibiotics given in the ED. No respiratory failure or sepsis. INSTRUCTIONS Follow-up: Blood pressure screening was not performed during this visit because the patient has an active diagnosis of hypertension. (Electronically signed by Baltazar Magaña Dr. 07/18/2016 21:22)
--- NOTE | 2016-07-18 21:22 | ED MAR SUMMARY ---
..... Medication Administration Record Merged With [facility] [address] [place] [address] Patient: CHRISTIN CORDON Visit ID: [id number] 56y, M Weight: 127.0 kg Height/Length: 77 in BMI: 33.2 ALLERGIES: All narcotics can cause itching- give benadryl before meds , Hydromorphone, Promethazine , Pt had hallucinations when given dilaudid and morphone at hospital same visit , Sulfa Antibiotics Given 13:06 07/18/2016 Yaz Serrano, Medication Administered: DUONEB [NEB TX] (IPRATROPIUM-ALBUTEROL), Dose: 1 unit dose Neb TX. Medication Ordered: DuoNeb Neb Tx 1 unit dose (NOW). Given 13:13 07/18/2016 Sheriff Feliz R.N. Medication Administered: PREDNISONE [PO], Dose: 40 mg PO. Medication Ordered: Prednisone PO 40 mg (NOW). Given 13:45 07/18/2016 Yaz Serrano,, Stop 14:54 07/18/2016 Melanie Koehler RDeborahNDeborah Medication Administered: ALBUTEROL [NEB TX], Dose: 3 unit dose Neb TX. Medication Ordered: Albuterol Neb Tx 7.5 mg (NOW). Given 16:07/18/2016 Isaías Pacheco R.N. Medication Administered: AMLODIPINE [PO], Dose: 5 mg Tablets PO. Medication Ordered: Amlodipine PO 5 mg (NOW). Given 16:07/18/2016 Isaías Pacheco R.N. Medication Administered: LEVOFLOXACIN [PO], Dose: 750 mg Tablets PO. Medication Ordered: Levofloxacin PO 750 mg (NOW). Given 16:07/18/2016 Isaías Pacheco R.N. Medication Administered: OXYCODONE-APAP [PO] (OXYCODONE-ACETAMINOPHEN), Dose: 1 tab 5/325 mg Tablets PO. Medication Ordered: Oxycodone-APAP PO 5/325 mg (HIGH ALERT MEDICATION, NOW). Start 16:54 07/18/2016 Isaías Pacheco R.N. Medication Administered: CEFTRIAXONE [IVPB], Dose: 1 gm IVPB over 30 minute(s), Rate: 100 mL/hr, Dispensed: 50 mL bag, Site: #1 right AC. Medication Ordered: Ceftriaxone IV 1 gm/50mL (NOW).
--- NOTE | 2016-07-18 21:22 | ED MAR SUMMARY ---
..... Medication Administration Record [facility] [address] [place] [address] Patient: CHRISTIN CORDON Visit ID: [id number] 56y, M Weight: 127.0 kg Height/Length: 77 in BMI: 33.2 ALLERGIES: All narcotics can cause itching- give benadryl before meds , Hydromorphone, Promethazine , Pt had hallucinations when given dilaudid and morphone at hospital same visit , Sulfa Antibiotics Given 13:06 07/18/2016 Yaz Serrano, Medication Administered: DUONEB [NEB TX] (IPRATROPIUM-ALBUTEROL), Dose: 1 unit dose Neb TX. Medication Ordered: DuoNeb Neb Tx 1 unit dose (NOW). Given 13:13 07/18/2016 Sheriff Feliz R.N. Medication Administered: PREDNISONE [PO], Dose: 40 mg PO. Medication Ordered: Prednisone PO 40 mg (NOW). Given 13:45 07/18/2016 Yaz Serrano,, Stop 14:54 07/18/2016 Melanie Koehler RDeborahNDeborah Medication Administered: ALBUTEROL [NEB TX], Dose: 3 unit dose Neb TX. Medication Ordered: Albuterol Neb Tx 7.5 mg (NOW). Given 16:07/18/2016 Isaías Pacheco R.N. Medication Administered: AMLODIPINE [PO], Dose: 5 mg Tablets PO. Medication Ordered: Amlodipine PO 5 mg (NOW). Given 16:07/18/2016 Isaías Pacheco R.N. Medication Administered: LEVOFLOXACIN [PO], Dose: 750 mg Tablets PO. Medication Ordered: Levofloxacin PO 750 mg (NOW). Given 16:07/18/2016 Isaías Pacheco R.N. Medication Administered: OXYCODONE-APAP [PO] (OXYCODONE-ACETAMINOPHEN), Dose: 1 tab 5/325 mg Tablets PO. Medication Ordered: Oxycodone-APAP PO 5/325 mg (HIGH ALERT MEDICATION, NOW). Start 16:54 07/18/2016 Isaías Pacheco R.N. Medication Administered: CEFTRIAXONE [IVPB], Dose: 1 gm IVPB over 30 minute(s), Rate: 100 mL/hr, Dispensed: 50 mL bag, Site: #1 right AC. Medication Ordered: Ceftriaxone IV 1 gm/50mL (NOW).
--- NOTE | 2016-07-18 21:22 | ED DISCHARGE INSTRUCTIONS ---
Patient: CHRISTIN CORDON General Instructions Merged With [facility] VisitID: [id number] [address] [place] [address] 56y, M Registration Date/Time: 07/18/2016 Bacterial pneumonia with hypoxemia. Empiric antibiotics given in the ED. No respiratory failure or sepsis. INSTRUCTIONS Follow-up: Blood pressure screening was not performed during this visit because the patient has an active diagnosis of hypertension. (Electronically signed by Baltazar Magaña Dr. 07/18/2016 21:22)
--- NOTE | 2016-07-18 21:22 | ED MED RECONCILIATION SUMMARY ---
Patient: CHRISTIN CORDON Medication Reconciliation Report [facility] VisitID: [id number] [address] [place] [address] 56y, M Registration Date/Time: 07/18/2016 Weight: 127.0 kg Height/Length: 77 in. BMI: 33.2 ALLERGIES: All narcotics can cause itching- give benadryl before meds , Hydromorphone, Promethazine , Pt had hallucinations when given dilaudid and morphone at hospital same visit , Sulfa Antibiotics The patient's Home Medications are listed below: THE FOLLOWING MEDICATIONS NEED TO BE RECONCILED: AmLODIPine Besylate Oral 10 mg, daily Carvedilol Oral (25 mg), BID Diclofenac Sodium ER Oral 75 mg DULoxetine HCl Oral (20 mg) 60MG, DAILY Gabapentin Enacarbil ER Oral 300-600 MG, HS Hydrochlorothiazide Oral 50 mg, daily Levaquin Oral 750 mg, daily Losartan Potassium Oral (100 mg) 1 tablet, daily MetFORMIN HCl Oral (1000 mg), 2x a day Omeprazole Oral 20 mg, daily OxyCODONE HCl ER Oral 5mg, QID OxyCONTIN Oral 15 MG, 2x a day The source(s) of the original Home Medication information: Not obtained. The following Medications were given to the patient in the Emergency Department: Duoneb [Neb Tx] Neb TX 1 unit dose, administered: 07/18/2016 1:06:00 PM Prednisone [PO] PO 40 mg, administered: 07/18/2016 1:13:00 PM Albuterol [Neb Tx] Neb TX 3 unit dose, administered: 07/18/2016 1:45:00 PM Amlodipine [PO] PO 5 mg, administered: 07/18/2016 4:41:00 PM Levofloxacin [PO] PO 750 mg, administered: 07/18/2016 4:41:00 PM Oxycodone-APAP [PO] PO 1 tab, administered: 07/18/2016 4:41:00 PM Ceftriaxone [IVPB] IVPB bolus 0, then 1 gm 100 mL/hr, administered: 07/18/2016 4:54:00 PM The following Medications were prescribed to the patient: None.
[2016-07-18 22:24] VITALS: BP 163/82
[2016-07-19 02:57] VITALS: BP 160/79
[2016-07-19 05:13] VITALS: BP 121/66
[2016-07-19 06:50] VITALS: BP 175/82
--- NOTE | 2016-07-19 06:56 | Progress Note ---
Subjective General Note Date: 07/19/2016. Admission Date: 07/18/2016 Hospital Day: Day 2 PCP: Polina Status: Inpatient acute care Advanced Directive: Full code Room: 208 56-year-old male with a past medical history of diabetic ulcers, diabetes mellitus (controlled), hypertension, obstructive pulmonary disease (asthma), on nighttime home O2 that is presenting with a 4 day day history of dyspnea, cough and wheeze. Patient was admitted with a pneumonia with hypoxia Patient's morning is feeling pain in the arm where the IV was running. Patient is concerned that he hasn't have his diphenhydramine. Patient also takes added oxycodone in between his OxyContin dosage. Patient states that he is not breathing as well as the was before. Patient still having desaturations. Physical Exam Vital Signs / I&Os Vital Signs Date Time Temp Pulse Resp B/P Pulse O2 O2 Flow FiO2 Ox Delivery Rate 07/19 0650 99.0 76 18 175/82 99 Nasal 2.0 Cannula 07/19 0532 69 13 94 Nasal 2.0 Cannula 07/19 0513 98.4 75 14 121/66 97 Room Air 07/19 0503 71 14 94 Nasal 3.0 Cannula 07/19 0341 76 14 94 Nasal 4.0 Cannula 07/19 0257 98.2 72 16 160/79 94 Nasal 4.0 Cannula 07/19 0145 73 13 93 Nasal 4.0 Cannula 07/18 2224 99.9 163/82 07/18 2201 74 07/18 2100 Nasal 4.0 Cannula 07/18 2045 78 12 93 Nasal 4.0 Cannula 07/18 2016 4.0 07/18 185 98.1 76 21 161/78 91 Nasal 4.0 Cannula I&O 07/18 0800 07/18 1600 07/19 0000 Intake Total 120 Output Total 0 Balance 120 General Appearance Oriented X3, Cooperative, Mild distress Lungs sounds decreased breath sounds at the bases Neck Supple, No JVD Cardiovascular Regular rate and rhythm, Normal S1 and S2 Abdomen Soft, No tenderness Extremities No edema Skin No Breakdown Neurological Normal gait Psych/Mental Status Mood normal LAB Results Laboratory Tests 07/18 07/18 07/18 07/18 07/18 1307 1307 1307 1314 1429 Blood Gas Sample Site RR Total CO2 (24.0 - 30.0 mmol/L) 35.6 ABG pH (7.35 - 7.45) 7.33 ABG pCO2 at Pt Temp (35 - 45 mmHg) 63.4 ABG pO2 at Pt Temp (80.0 - 100.0 mmHg) 49.8 ABG HCO3 (20.0 - 26.0 mmol/L) 33.7 ABG O2 Sat Calc/Ko (95.1 - 100.0 %) 85.4 ABG Base Excess (-6.0 - -6.0 mmol/L) 6.9 ABG Reduced Hgb (%) 14.3 ABG Carboxyhemoglobin (0.5 - 1.5 %) 2.2 ABG Methemoglobin (0.4 - 1.5 %) 0.1 Khris Test YES Other Total Hgb (14.0 - 18.0 g/dL) 11.7 A-a O2 Gradient (7.0 - 14.0 mmHg) 163.6 Hgb O2 Saturation (95.0 - 100.0 %) 83.4 Respiration Rate (/MIN) 24 Vent Mode NC FiO2 (20 - 101 %) 40 Chemistry Plasma Sodium (136 - 145 mmol/L) 141 Plasma Potassium (3.5 - 5.1 mmol/L) 4.8 Plasma Chloride (98 - 107 mmol/L) 103 CO2 (Enzymatic) (21 - 32 mmol/L) 35 BUN (7 - 18 mg/dL) 25 Creatinine (0.6 - 1.3 mg/dL) 1.5 Est GFR ( Amer) (mL/min) >60 Est GFR (Non-Af Amer) (mL/min) 51.64 Glucose (70 - 110 mg/dL) 165 Lactic Acid (0.4 - 2.0 mmol/L) 1.2 Plasma Calcium (8.5 - 10.1 mg/dL) 8.9 Plasma Magnesium (1.8 - 2.4 mg/dL) 1.8 Total Bilirubin (0.0 - 1.0 mg/dL) 0.3 AST (15 - 37 U/L) 14 ALT (12 - 78 U/L) 18 Alkaline Phosphatase (46 - 116 U/L) 120 Creatine Kinase (24 - 260 U/L) 27 Troponin (0.00 - 1.5 ng/mL) <0.05 B-Natriuretic Peptide (5 - 100 pg/ml) 486 Total Protein (6.4 - 8.2 g/dL) 8.4 Albumin (3.3 - 5.0 g/dL) 3.2 Procalcitonin (0 - 0.5 ng/mL) <0.5 Coagulation D-Dimer, Quantitative (0.27 - 0.52 ug/mLFEU) 0.68 Hematology WBC (4.5 - 11.5 K/uL) 6.7 RBC (4.50 - 5.90 M/uL) 4.21 Hgb (13.5 - 17.5 gm/dL) 12.0 Hct (41.0 - 53.0 %) 38.0 MCV (80 - 100 fL) 90 MCH (26 - 34 pg) 29 RDW (11.6 - 14.8 %) 16.5 Neut % (Auto) (50 - 75 %) 77.7 Lymph % (Auto) (25 - 40 %) 14.8 [place] % (Auto) (3 - 14 %) 6.3 Eos % (Auto) (0 - 4 %) 0.4 Baso % (Auto) (0 - 2 %) 0.8 Plt Count, EDTA (150 - 400 K/uL) 329 PUBS MCHC (31 - 37 g/dL) 32 07/18 07/19 07/19 2100 0515 0515 Chemistry Plasma Sodium (136 - 145 mmol/L) 139 Plasma Potassium (3.5 - 5.1 mmol/L) 4.2 Plasma Chloride (98 - 107 mmol/L) 102 CO2 (Enzymatic) (21 - 32 mmol/L) 31 BUN (7 - 18 mg/dL) 23 Creatinine (0.6 - 1.3 mg/dL) 1.3 Est GFR ( Amer) (mL/min) >60 Est GFR (Non-Af Amer) (mL/min) >60 Glucose (70 - 110 mg/dL) 160 Hemoglobin A1c % (4.5 - 6.2 %) 7.8 Plasma Calcium (8.5 - 10.1 mg/dL) 8.8 Plasma Magnesium (1.8 - 2.4 mg/dL) 1.5 Total Bilirubin (0.0 - 1.0 mg/dL) 0.3 AST (15 - 37 U/L) 13 ALT (12 - 78 U/L) 16 Alkaline Phosphatase (46 - 116 U/L) 107 Total Protein (6.4 - 8.2 g/dL) 7.7 Albumin (3.3 - 5.0 g/dL) 2.9 Triglycerides (30 - 200 mg/dL) 82 Cholesterol (140 - 200 mg/dL) 118 LDL Cholesterol, Calc (mg/dL) 76 HDL Cholesterol (32 - 96 mg/dL) 26 LDL/HDL Ratio 2.9 Cholesterol/HDL Ratio 4.5 Coronary Risk Interp (0.4 - 1.0) 0.9 Hematology WBC (4.5 - 11.5 K/uL) 7.4 RBC (4.50 - 5.90 M/uL) 3.85 Hgb (13.5 - 17.5 gm/dL) 10.9 Hct (41.0 - 53.0 %) 34.4 MCV (80 - 100 fL) 89 MCH (26 - 34 pg) 28 RDW (11.6 - 14.8 %) 16.6 Neut % (Auto) (50 - 75 %) 88.2 Lymph % (Auto) (25 - 40 %) 10.6 [place] % (Auto) (3 - 14 %) 1.0 Eos % (Auto) (0 - 4 %) 0 Baso % (Auto) (0 - 2 %) 0.2 Plt Count, EDTA (150 - 400 K/uL) 280 PUBS MCHC (31 - 37 g/dL) 32 Microbiology Date/Time Procedure - Status Source Growth 07/18 142 Blood Culture - RECD BLOOD 07/18 142 Blood Culture - RECD BLOOD Assessment and Plan Problem List 1. Pneumonia Plan Follow trends seen the vitals. Maintaining nasal cannula O2 and watching the saturations to maintain above 92%. Continue with the levofloxacin plus ceftriaxone. Bronchial hygiene along with DuoNeb nebs every 6 hours. 2. Hypoxia Plan Hypoxia on room air on admission. Improve on saturations through lung expansion. We'll continue with the O2 therapy 3. Hypertension Status Chronic Onset Date Unknown Plan Hypertension well established. Resume home medication. Stable while inpatient 4. Diabetes mellitus Status Chronic Onset Date Unknown Plan Patient on single agent metformin. Continue with the carbohydrate consistent diet. Coverage low dose. 5. Dyspnea Plan Should patient was dyspneic on exertion. Patient also hypoxic with associated pneumonia. Current status: Inpatient acute care Anticipated discharge date: 1-2 days Anticipated discharge placement: Home Patient care time: Time spent in chart review, patient interview, physical exam, CPOE, and care documentation: 30 minutes Visit to patient today: Once Complexity of care: Mild/moderate E&M Codes Rounding: Inpt-High/[id number]
[2016-07-19 10:11] VITALS: BP 150/48
[2016-07-19 18:30] VITALS: BP 159/78
[2016-07-19 22:36] VITALS: BP 160/79
[2016-07-20 02:44] VITALS: BP 154/91
[2016-07-20 06:21] VITALS: BP 121/52
--- NOTE | 2016-07-20 07:14 | Progress Note ---
Subjective General Note Date: 07/20/2016. Admission Date: 07/18/2016 Hospital Day: Day 2 PCP: Polina Status: Inpatient acute care Advanced Directive: Full code Room: 208 Patient is reporting significant improvement overall. Patient continues to have less oxygen requirement with activity. Patient does have oxygen for nighttime. Patient reports it is able to inhale deeper. Patient does not cough is often there is frequent. Constitutional Denies: Sweats, Weakness. Respiratory Denies: Dry. Cardiovascular Denies: Palpitations, Orthopnea. Skin Lesions. Physical Exam Vital Signs / I&Os Vital Signs Date Time Temp Pulse Resp B/P Pulse O2 O2 Flow FiO2 Ox Delivery Rate 07/20 0621 97.5 81 18 121/52 96 Nasal 2.0 Cannula 07/20 0244 98.1 78 16 154/91 93 Nasal 2.0 Cannula 07/19 2236 97.9 75 16 160/79 93 Nasal 2.0 Cannula 07/19 2200 Nasal 2.0 Cannula 07/19 2005 2.0 07/19 1830 98.4 75 16 159/78 96 Nasal 2.0 Cannula 07/19 1732 89 07/19 1638 2.0 07/19 1011 98.4 76 18 150/48 95 Nasal 2.0 Cannula 07/19 1007 2.0 07/19 0832 76 07/19 0745 2.0 I&O 07/19 0800 07/19 1600 07/20 0000 Intake Total 4492 624 5738 Output Total 1050 300 725 Balance 620 180 320 General Appearance Oriented X3, Cooperative HEENT Atraumatic Lungs Clear to auscultation Cardiovascular Regular rate and rhythm, Normal S1 and S2 Abdomen Soft Extremities No edema Skin patient casted on the left foot. Neurological No lateralizing signs LAB Results Laboratory Tests 07/20 604 Chemistry Plasma Sodium (136 - 145 mmol/L) 141 Plasma Potassium (3.5 - 5.1 mmol/L) 4.0 Plasma Chloride (98 - 107 mmol/L) 103 CO2 (Enzymatic) (21 - 32 mmol/L) 28 BUN (7 - 18 mg/dL) 28 Creatinine (0.6 - 1.3 mg/dL) 1.2 Est GFR ( Amer) (mL/min) >60 Est GFR (Non-Af Amer) (mL/min) >60 Glucose (70 - 110 mg/dL) 206 Plasma Calcium (8.5 - 10.1 mg/dL) 8.5 Total Bilirubin (0.0 - 1.0 mg/dL) 0.3 AST (15 - 37 U/L) 13 ALT (12 - 78 U/L) 17 Alkaline Phosphatase (46 - 116 U/L) 92 Total Protein (6.4 - 8.2 g/dL) 7.1 Albumin (3.3 - 5.0 g/dL) 3.0 Hematology WBC (4.5 - 11.5 K/uL) 9.6 RBC (4.50 - 5.90 M/uL) 3.90 Hgb (13.5 - 17.5 gm/dL) 11.1 Hct (41.0 - 53.0 %) 34.5 MCV (80 - 100 fL) 88 MCH (26 - 34 pg) 28 RDW (11.6 - 14.8 %) 16.8 Neut % (Auto) (50 - 75 %) 86.9 Lymph % (Auto) (25 - 40 %) 9.5 [place] % (Auto) (3 - 14 %) 3.3 Eos % (Auto) (0 - 4 %) 0 Baso % (Auto) (0 - 2 %) 0.3 Plt Count, EDTA (150 - 400 K/uL) 342 PUBS MCHC (31 - 37 g/dL) 32 Assessment and Plan Problem List 1. Pneumonia Plan Seen with retrocardiac infiltrates on chest film. Patient with profound dyspnea hypoxixc on room air. We'll need to complete nearly 10 days of antibiotics. Follow up with primary care provider Needing wound care provider follow-up as well. 2. Hypoxia Plan Seen with hypoxia on room air on admission. Patient is no longer hypoxic showing improvement generally. The patient does have oxygen with likely desaturations at nighttime. Continue with the home O2 continue the antibiotic to completion. 3. Hypertension Status Chronic Onset Date Unknown Plan Hypertension that is well established. Continue with the home therapy. 4. Diabetes mellitus Status Chronic Onset Date Unknown Plan Patient with history of diabetes and diabetic neuropathies. Patient with multiple lesions on the left lower extremity. This is followed by Salma MOORE 5. Dyspnea Plan Patient with dyspnea on exertion with's findings consistent with a pneumonia. Patient on home O2 better but beating his requirements. Patient now completed her hospital stay with improvement generally. Patient is back to his baseline needs of oxygen. We'll plan to call [facility] [place] and continue the oxygen therapy and support. Current status: Inpatient acute care Anticipated discharge date: today Anticipated discharge placement: Home Patient care time: Time spent in chart review, patient interview, physical exam, CPOE, and care documentation: 30 minutes Visit to patient today: Complexity of care: Mild/moderate E&M Codes Rounding: Inpt-High/17536 Discharge: Inpt <30 min spent/13450
[2016-07-20 14:30] VITALS: BP 134/71
[2016-07-20] MEDS ORDERED: LEVOFLOXACIN250 MG PO (14:31)
[2016-07-20] MEDS ORDERED: DELTASONE20 MG PO (14:36)
--- NOTE | 2016-07-20 14:38 | Provider's Discharge Care Plan ---
Problem, Goal, Plan Problem List 1. Pneumonia Goals: Improve function, Improve nutrition status, Screening Instructions: Follow up as directed, Increase activity level 2. Diabetes mellitus Goals: Improve disease control Instructions: Follow up as directed 3. Hypertension Goals: Improve disease control, Improve function, Therapeutic intervention Instructions: Follow up as directed, Take meds as directed 4. Hypoxia Goals: Improve disease control, Normal growth/development, Prevent disease progress Instructions: Follow up as directed 5. Dyspnea Goals: Prevent disease progress, Screening, Therapeutic intervention Instructions: Follow up as directed
== END 2016-07-20 15:30 | disposition home or self-care (01) | DRG 140 ==
LOC: EKG SRH 12:48 → ED SRH 12:48 → TRANS SRH 16:49 → ACUTE2 SRH 18:40
PROVIDERS: ADMIT Pediatrics
DX: J44.0 Chronic obstructive pulmonary disease with (acute) lower respiratory infection (principal); J18.9 Pneumonia, unspecified organism; R09.02 Hypoxemia; Z99.81 Dependence on supplemental oxygen; E11.621 Type 2 diabetes mellitus with foot ulcer; L97.419 Non-pressure chronic ulcer of right heel and midfoot with unspecified severity; E11.42 Type 2 diabetes mellitus with diabetic polyneuropathy; R79.89 Other specified abnormal findings of blood chemistry; I10 Essential (primary) hypertension; Z79.84 Long term (current) use of oral hypoglycemic drugs

== ENCOUNTER 2016-07-25 11:38 | Outpatient (CLI) | payer OTHER ==
[~2016-07-25 11:38] MED LIST changes: +DELTASONE20 MG PO; +DICLOFENAC SODI75 MG; +LEVOFLOXACIN250 MG PO
== END 2016-07-25 23:00 ==
LOC: LAB SRH 11:38
DX: J96.00 Acute respiratory failure, unspecified whether with hypoxia or hypercapnia (principal)

== ENCOUNTER 2016-08-31 16:17 | Emergency (ER) | payer OTHER ==
--- NOTE | 2016-08-31 17:43 | DIAGNOSTIC IMAGING REPORT ---
PROCEDURE: US VENOUS - LEFT EXT INDICATION: Left lower extremity swelling. TECHNIQUE: Duplex sonography of the deep venous system in the left lower extremity was performed. Compression and augmentation techniques were used. COMPARISON: Left lower extremity venous duplex ultrasound 07/18/2016. FINDINGS: Normal compression of the greater saphenous, common femoral, superficial femoral, popliteal, peroneal, and posterior tibial veins. Normal augmentation. There is no evidence of superficial or deep venous thrombosis. IMPRESSION: 1. Negative venous ultrasound of the left lower extremity.
--- NOTE | 2016-08-31 18:40 | ED ORDER SUMMARY ---
..... Patient: CHRISTIN CORDON OrderSheet [facility] VisitID: [id number] [address] [place] [address] 56y, M Registration Date/Time: 08/31/2016 ORDER SHEET Weight: 129.2 kg (stated) Allergies: All narcotics can cause itching- give benadryl before meds , Hydromorphone, Promethazine , Pt had hallucinations when given dilaudid and morphone at hospital same visit , Sulfa Antibiotics GENERAL ORDERS: US Venous Left Urgent (17:11 08/31/2016 HBivens A.R.N.P.) (Ack 17:42 LNations ER Tech1) (17:43 LNations ER Tech1) CBC w Diff Urgent (17:08/31/2016 HBivens A.R.N.P.) (Ack 17:42 LNations ER Tech1) (18:45 Jean Claude R.N.) CMP Urgent (17:08/31/2016 HBivens A.R.N.P.) (Ack 17:42 LNations ER Tech1) (18:45 Jean Claude R.N.) D-Dimer Urgent (17:08/31/2016 HBivens A.R.N.P.) (Ack 17:43 LNations ER Tech1) (18:45 Jean Claude R.N.) MEDICATION ORDERS: IV FLUIDS: ORDER SHEET NOTES: [Electronically signed by Margarita Pinedo R.N. (19:25 08/31/2016)] [Electronically signed by Mariela Price.R.N.P. (19:54 08/31/2016)] [Electronically locked/signed by Margarita Pinedo R.N. (19:25 08/31/2016)]
--- NOTE | 2016-08-31 18:40 | ED ORDER SUMMARY ---
..... Patient: CHRISTIN CORDON OrderSheet [facility] VisitID: [id number] [address] [place] [address] 56y, M Registration Date/Time: 08/31/2016 ORDER SHEET Weight: 129.2 kg (stated) Allergies: All narcotics can cause itching- give benadryl before meds , Hydromorphone, Promethazine , Pt had hallucinations when given dilaudid and morphone at hospital same visit , Sulfa Antibiotics GENERAL ORDERS: US Venous Left Urgent (17:11 08/31/2016 HBivens A.R.N.P.) (Ack 17:42 LNations ER Tech1) (17:43 LNations ER Tech1) CBC w Diff Urgent (17:08/31/2016 HBivens A.R.N.P.) (Ack 17:42 LNations ER Tech1) (18:45 Jean Claude R.N.) CMP Urgent (17:08/31/2016 HBivens A.R.N.P.) (Ack 17:42 LNations ER Tech1) (18:45 Jean Claude R.N.) D-Dimer Urgent (17:08/31/2016 HBivens A.R.N.P.) (Ack 17:43 LNations ER Tech1) (18:45 Jean Claude R.N.) MEDICATION ORDERS: IV FLUIDS: ORDER SHEET NOTES: [Electronically signed by Margarita Pinedo R.N. (19:25 08/31/2016)] [Electronically signed by Mariela Price.R.N.P. (19:54 08/31/2016)] [Electronically locked/signed by Margarita Pinedo R.N. (19:25 08/31/2016)]
--- NOTE | 2016-08-31 18:40 | ED CLINICAL REPORT ---
Clinical Report - Physicians/Mid Levels [facility] [address] [place] [address] 08/31/2016 16:18 Patient: CHRISTIN CORDON Time Seen: 1655; initial patient contact, initial documentation, patient care assumed. Arrived- By private vehicle. Historian- patient. HISTORY OF PRESENT ILLNESS Chief Complaint: LOWER EXTREMITY SWELLING. The quality is noted to be "pain" and similar to prior episodes. Is still present. Symptoms located in the area of the left knee and left leg. The patient has had swelling, but not had redness. No difficulty walking. No bladder dysfunction, bowel dysfunction, sensory loss or motor loss. ( since surgery x1 month ago, there has been swelling and pain going up lower leg to knee, more swelling today). Patient denies an injury. Similar symptoms previously: Frequently, milder. Recent medical care: The patient was seen recently in the office. ( had toes amputated approx x1 month ago, f/u was normal). REVIEW OF SYSTEMS No chest pain or difficulty breathing. All systems otherwise negative, except as recorded above. PAST HISTORY See nurses notes. ( PROBLEMS: MRSA Infection. Pressure Ulcer. Hypoxia. Renal Insufficiency. Pneumonia. Dyspnea. Congestive Heart Failure. Heart Disease. Lower Extremity Pain. Abrasion(s). Contusion. Fall. Cellulitis. Changed Mental Status. Osteomyelitis. DVT/PE Risk Factors. Peripheral Vascular Disease. Headache. Immunizations. Diabetic Ulcer on R foot. Nephrolithiasis. Hypercholesterolemia. Diabetes Mellitus. Hypertension. --16:50 Margarita Pinedo R.N. Asthma [RuleOut]. Osteomyelitis [RuleOut]. --16:50 Margarita Pinedo R.N. ADDITIONAL SURGERIES: Amputation Lower Extremity. Back Surgery. Knee Surgery. Lithotripsy. Partial foot amputation. Toe amputation. Tonsillectomy. --16:50 Margarita Pinedo R.N.). SOCIAL HISTORY Never smoker. No alcohol use or drug use. No recent travel. Is a local resident. FAMILY HISTORY Negative. ADDITIONAL NOTES The nursing notes have been reviewed with agreement regarding the chief complaint, HPI, ROS, PMH and patient medications and allergies. PHYSICAL EXAM Appearance: Alert. Oriented X3. No acute distress. Eyes: Pupils equal, round and reactive to light. Eyes normal inspection. Neck: Normal inspection. Neck supple. CVS: Normal heart rate and rhythm. Heart sounds normal. Respiratory: No respiratory distress. Breath sounds normal. Back: Normal inspection. No tenderness. ROM normal. Skin: Skin intact. Skin warm and dry. Normal skin color. Normal skin turgor. Extremities: Lower extremities exhibit normal ROM. No lower extremity edema. No signs of infection involving the lower extremities. No lower extremity edema. No calf tenderness. (walking with cane, toes amputation stub appears normal, no swelling nontender, no warmth, no erythema, no calf tenderness). Extremities otherwise negative. Neuro, Vascular and Tendons: No pulse deficit present. Lower extremity capillary refill not prolonged. Gait: Normal gait. Neuro: Oriented X 3. No motor deficit. No sensory deficit. LABS, X-RAYS, AND EKG Lower Extremity Sonography: Negative exam. Negative study. verbal report from Zooomr Brandy. Interpretation time: 17:33. Laboratory Tests: CBC w Diff: (LATONIA: 08/31/2016 17:35) ( MsgRcvd 08/31/2016 17:43) Final results Test Result Flag Units (Reference) WHITE BLOOD COUNT 12.5 H K/uL (4.5-11.5) RED BLOOD COUNT 3.87 L M/uL (4.50-5.90) HEMOGLOBIN 11.1 L gm/dL (13.5-17.5) HEMATOCRIT 35.0 L % (41.0-53.0) MEAN CELL VOLUME 91 fL (80-100) MEAN CORPUSCULAR HGB 29 pg (26-34) MEAN CORPUSCULAR HGB CONC 32 g/dL (31-37) RED CELL DISTRIBUTION WIDTH 16.8 H % (11.6-14.8) PLATELET COUNT 310 K/uL (150-400) NEUTROPHIL % 86.0 H % (50-75) LYMPH % 11.2 L % (25-40) MONO % 2.3 L % (3-14) EOSINOPHIL % 0.4 % (0-4) BASOPHIL % 0.1 % (0-2) [id number]: (LATONIA: 08/31/2016 17:35) ( MsgRcvd 08/31/2016 17:58) Final results Test Result Flag Units (Reference) D-DIMER QUANTITATIVE 0.41 ug/mLFEU (0.27-0.52) The primary value of this quantitative assay relates toits negative predictive value (i.e. exclusion) of pulmonaryembolism/deep vein thrombosis/DIC.Elevated levels of d-dimer may also occur with:, age, cancer, inflammation, liver disease,post-op, infection, hematoma, coronary disease, peripheralarteriopathy, bleeding disorders and thrombolytic treatment.Results should be correlated with other clinical andradiological data.Testing Methodology: Latex Immunoassay CMP: (LATONIA: 08/31/2016 17:35) ( MsgRcvd 08/31/2016 18:01) Final results Test Result Flag Units (Reference) GLUCOSE 249 H mg/dL (70-110) BUN 28 H mg/dL (7-18) CREATININE 1.3 mg/dL (0.6-1.3) Estimated GFR >60 mL/min Estimated GFR- >60 mL/min Note: Persistent reduction over 3 months in eGFR<60 mL/min/1.73 m2 defines CKD. Patients with eGFR values>=60 mL/min/1.73 m2 may also have CKD if evidence ofpersistent proteinuria. Additional information may be foundat www.kidney.org. SODIUM 139 mmol/L (136-145) POTASSIUM 4.4 mmol/L (3.5-5.1) CHLORIDE 101 mmol/L (98-107) CARBON DIOXIDE 33 H mmol/L (21-32) CALCIUM 8.4 L mg/dL (8.5-10.1) TOTAL PROTEIN 7.3 g/dL (6.4-8.2) ALBUMIN 3.1 L g/dL (3.3-5.0) BILIRUBIN, TOTAL 0.4 mg/dL (0.0-1.0) ALKALINE PHOSPHATASE 98 U/L (46-116) AST (SGOT) 12 L U/L (15-37) ALT (SGPT) 13 U/L (12-78) . PROGRESS AND PROCEDURES Course of Care: upon entering room, spouse talking over pt and both speaking at same time, asked them to try and let one answer, both continued to talk, and both jumping all over the place, telling me stuff that was chronic, stuff that has happened over a year ago, and jumping all over the place, tried to redirect them back to the complaint today of pain and swelling and leg, and explained that I needed to ask some pertinent questions re to blood clots, dvt or pe, and to try and stay with me, because I was getting confused, both still answering and pt still telling me chronic stuff tx plan discussed after, exam unremarkable, low concern for dvt, pe or infection (osteomyelitis or cellulitis), spouse wants blood work and doppler done. Patient and spouse counseled in person regarding the patient's stable condition, test results and diagnosis. Differential Diagnosis: I considered fracture, stress fracture, osteomyelitis, myositis, fasciitis, tendonitis, bursitis, Maurer's cyst, ischemia, popliteal aneurysm, embolism and deep venous thrombosis as a possible cause of lower extremity pain in this patient. This is a partial list of diagnoses considered. Above considerations are based on history, physical exam, reassessment, laboratory data and other information. Differential diagnosis was discussed with patient and patient's spouse. Disposition: Discharged home in good and unchanged condition (18:40). Condition: good and stable. CLINICAL IMPRESSION Acute left lower leg, calf and ankle pain. INSTRUCTIONS Warnings: GENERAL WARNINGS: Return or contact your physician immediately if your condition worsens or changes unexpectedly, if not improving as expected, or if other problems arise. Specifically return if problem worsens. Follow-up: Follow up with your doctor in about three days as needed. Call for an appointment. Summary of care provided to patient and family. Understanding of the discharge instructions verbalized by patient. (Electronically signed by Mariela Price A.R.N.P. 08/31/2016 19:54)
--- NOTE | 2016-08-31 18:40 | ED NURSING NOTES ---
Clinical Report - Nurses [facility] [address] [place] [address] 08/31/2016 16:18 Patient: CHRISTIN CORDON TRIAGE Triage time 16:45. Acuity: LEVEL 3. Chief Complaint: LEFT LOWER EXTREMITY PAIN and SWELLING. Alert. No acute distress. OBINNA COMA SCORE: [place] Coma Scale: 15- eyes open spontaneously (4); best verbal response- oriented x 4 (5); best motor response- obeys commands (6). --16:56 Margarita Pinedo R.N. <<STRICKEN ENTRY-- 16:44 08/31/16. BP: 161/78. HR: 173. RR: 18. O2 saturation: 93% on room air. Temp: 98.2 F. Pain level now: 07/29. --16:56 Margarita Pinedo R.N. --END STRIKE>> Correction. --17:37 Margarita Pinedo R.N. 17:37 08/31/16. BP: 161/78. HR: 73. RR: 18. O2 saturation: 93% on room air. Temp: 98.2 F (oral). Pain level now: 07/29. --17:39 Margarita Pinedo R.N. Weight: 129.2 kg stated. Height/Length: 77 inches Per Patient. BMI: 33.8. --16:52 Margarita Pinedo R.N. Medications AmLODIPine Besylate Oral 10 mg, daily. Carvedilol Oral (Tablet 25 mg), BID. Diclofenac Sodium ER Oral 75 mg. DULoxetine HCl Oral (Capsule Delayed Release Particles 20 mg) 60MG, DAILY. Gabapentin Enacarbil ER Oral 300-600 MG, HS. Hydrochlorothiazide Oral 50 mg, daily. Levaquin Oral 750 mg, daily. Losartan Potassium Oral (Tablet 100 mg) 1 tablet, daily. MetFORMIN HCl Oral (Tablet 1000 mg), 2x a day. Omeprazole Oral 20 mg, daily. OxyCODONE HCl ER Oral 5mg, QID. OxyCONTIN Oral 15 MG, 2x a day. --16:47 Margarita Pinedo R.N. PredniSONE Oral (for 10 days then off). --16:47 Margarita Pinedo R.N. Magnesium Oral 400 mg, 2x a day. --16:47 Margarita Pinedo R.N. Allergies All narcotics can cause itching- give benadryl before meds . Hydromorphone. ((pills caused itching, but IV dilaudid does ok) ) Promethazine .(itching) Pt had hallucinations when given dilaudid and morphone at hospital same visit . Sulfa Antibiotics.(hives) --16:47 Margarita Pinedo R.N. History Arrived by private vehicle. Historian: patient. Accompanied by family. Primary physician (Paulette). Injury occurred. Location of injuries: left thigh, left leg, left ankle and left foot. This occurred (about 1 month). SOCIAL HX: Never smoker. No alcohol use or drug use. FUNCTIONAL ASSESSMENT: Functional assessment: no impairments noted. Functional assessment performed: independent with the activities of daily living; uses cane. LEARNING NEEDS ASSESSMENT: The learning needs assessment revealed no barriers. FALL RISK ASSESSMENT: Fall risk assessment completed. Risk factors identified include patient impairment of mobility. --16:56 Margarita Pinedo R.N. PROBLEMS: MRSA Infection. Pressure Ulcer. Hypoxia. Renal Insufficiency. Pneumonia. Dyspnea. Congestive Heart Failure. Heart Disease. Lower Extremity Pain. Abrasion(s). Contusion. Fall. Cellulitis. Changed Mental Status. Osteomyelitis. DVT/PE Risk Factors. Peripheral Vascular Disease. Headache. Immunizations. Diabetic Ulcer on R foot. Nephrolithiasis. Hypercholesterolemia. Diabetes Mellitus. Hypertension. --16:50 Margarita Pinedo R.N. Asthma [RuleOut]. Osteomyelitis [RuleOut]. --16:50 Margarita Pinedo R.N. ADDITIONAL SURGERIES: Amputation Lower Extremity. Back Surgery. Knee Surgery. Lithotripsy. Partial foot amputation. Toe amputation. Tonsillectomy. --16:50 Margarita Pinedo R.N. Assessment GENERAL / NEURO / PSYCH: Alert. Oriented X 4. Appears in no acute distress. Patient appears calm and cooperative. RESPIRATORY: Respirations not labored. SKIN: Skin is warm and dry. --16:56 Margarita Pinedo R.N. Interventions ID and allergy band on patient. To treatment room. --16:56 Margarita Pinedo R.N. PHYSICAL ASSESSMENT 17:00 08/31/16. Ambulatory to room. Patient gowned. GENERAL / NEURO / PSYCH: Oriented X 4. Alert. Appears in no acute distress. EXTREMITIES: Edema of the left lower extremity involving the foot, ankle, lower leg and thigh. SKIN: Skin is warm and dry. --17:00 Margarita Pinedo R.N. 17:01 08/31/16. EXTREMITIES: ( partial left foot amputation). --17:01 Margarita Pinedo R.N. NURSING PROGRESS NOTES 17:00 08/31/16. Call light placed in reach. Side rails up x 1. Bed placed in lowest position. Brakes of bed on. --17:00 Margarita Pinedo R.N. US done at bedside. --18:11 Margarita Pinedo R.N. Blood samples drawn by lab. --18:12 Margarita Pinedo R.N. 19:10. The patient is calm and resting quietly. Overall patient status is the same- he states feels the same. GENERAL / NEURO / PSYCH: Alert. Oriented X 4. RESPIRATORY: No respiratory distress. SKIN: Skin is warm and dry. --19:24 Margarita Pinedo R.N. DISPOSITION / DISCHARGE Departure time: 1909. Condition at departure: stable. No learning barriers present. Discharge instructions provided and reviewed with the patient and spouse. Patient and spouse verbalized understanding. Written instructions provided in Kazakh. The patient was discharged home and accompanied by spouse. He left the Emergency Department ambulatory and via private vehicle. FALL RISK ASSESSMENT: Fall risk assessment completed. No fall risk identified. --19:24 Margarita Pinedo R.N. 19:22 08/31/16. BP: 174/74. HR: 68. RR: 18. O2 saturation: 95% on room air. Pain level now: 10. --19:24 Margarita Pinedo R.N. Locked/Released at 08/31/2016 19:25 by Margarita Pinedo R.N.
--- NOTE | 2016-08-31 19:54 | ED MAR SUMMARY ---
..... Medication Administration Record [facility] [address] [place] [address] Patient: CHRISTIN CORDON Visit ID: [id number] 56y, M Weight: 129.2 kg Height/Length: 77 in BMI: 33.8 ALLERGIES: All narcotics can cause itching- give benadryl before meds , Hydromorphone, Promethazine , Pt had hallucinations when given dilaudid and morphone at hospital same visit , Sulfa Antibiotics
--- NOTE | 2016-08-31 19:54 | ED DISCHARGE INSTRUCTIONS ---
Patient: CHRISTIN CORDON General Instructions [facility] VisitID: [id number] [place] [address] 56y, M Registration Date/Time: 08/31/2016 Acute left lower leg, calf and ankle pain. INSTRUCTIONS Warnings: GENERAL WARNINGS: Return or contact your physician immediately if your condition worsens or changes unexpectedly, if not improving as expected, or if other problems arise. Specifically return if problem worsens. Follow-up: Follow up with your doctor in about three days as needed. Call for an appointment. Summary of care provided to patient and family. Understanding of the discharge instructions verbalized by patient. ADDITIONAL INFORMATION Myofascial Pain Syndrome: Fibrositis Your pain is caused by a state of chronic muscle tension. This condition is called by various names: myofascial pain, fibrositis and trigger point pain. This can also be due to mechanical stress (such as working at a computer terminal for long periods; or work that requires repetitive motions of the arms or hands) or emotional stress (such as problems on the job or in your personal life). Sometimes there is no obvious cause. The pain can occur in the area of the muscle spasm or at a site distant to it. For example, spasm of a neck muscle can cause headache. Spasm of the muscle near the shoulder blade can cause pain shooting down the arm. Home Care: Try to identify the factors that may be causing your problem and change them: If you feel thatemotional stressis a cause of your pain, learn methods to deal more effectively with the stress in your life. These may include regular exercise, muscle relaxation techniques, meditation or simply taking time out for yourself. Consult your doctor or go to a local bookstore and review the many books and tapes available on the subject of stress reduction. If you feel that physical stress is a cause for your pain, try to modify any poor work habits. You may use acetaminophen (Tylenol) or ibuprofen (Motrin, Advil) to control pain, unless another medicine was prescribed. [NOTE: If you have chronic liver or kidney disease or ever had a stomach ulcer or GI bleeding, talk with your doctor before using these medicines.] The use of heat to the muscle (hot compress or heating pad) will be helpful to reduce muscle spasm. Some persons get relief with ice packs. Apply an ice pack (crushed or cubed ice in a plastic bag, wrapped in a towel) for 20 minutes at a time as needed. Use the method that feels best to you. Massaging the trigger point and stretching out the muscleare an important parts of prevention and treatment. Trigger point massage can be done by first applying heat to the area to warm and prepare the muscle. Have someone apply steady thumb pressure directly on the knot in the muscle (the most tender point) for 30 seconds. Release the pressure, then massage the surrounding muscle. Repeat the process, applying more pressure to the trigger point each time. Do this up to the limit of pain. With each treatment, the trigger point should become less tender and the pain should decrease. You can apply local pressure to trigger points in the back by lying on the floor with a tennis ball under the trigger point. Follow Up with your doctor as advised or if not improving within the next week. It may be necessary for you to receive physical therapy if you do not respond to home treatment alone. Get Prompt Medical Attention if any of the following occur: If your trigger point is in the chest muscles, observe for pain that becomes more severe, lasts longer, or spreads into your shoulder/arm, neck or back; you develop trouble breathing, sweating, nausea or vomiting in association with chest pain If you develop weakness or numbness in an extremity If your pain worsens, regardless of its location Osteoarthritis Osteoarthritis (also called Degenerative Joint Disease) is the most common form of arthritis in adults over 50. It is not the same as Rheumatoid Arthritis. The exact cause is not known but may be related to excess wear and tear on the joint over a long period of time. Prior injury to that joint, or repeated stress on a joint can also cause this type of arthritis. Osteoarthritis most often affects the hands, knees, spine and hips (in that order). The most common symptoms are joint stiffness, pain and swelling. Home Care: When a joint is more sore than usual, rest that joint for a day or two. Heat is very helpful. This can be provided by taking hot baths, applying a heating pad for up to 30 minutes at a time. Because symptoms are usually worse in the morning, many patients like to take a hot bath just after awakening to relax the muscle and soothe the joints. Exercise is the most important part of home treatment for osteoarthritis. This prevents the muscles and ligaments around the joint from becoming weak and helps maintain the full range of joint motion. This limits further damage to the joint. If you are overweight, this puts a lot of extra strain on weight-bearing joints of the lower back, hips, knees, feet and ankles. Losing weight will improve your arthritis symptoms in these joints. Talk to your doctor about a safe and effective weight loss program for yourself. Anti-inflammatory medicine such as ibuprofen (Advil, Motrin) or naproxen (Aleve) is often used to treat this condition. If this alone is not helping, your doctor may prescribe a stronger medicine. If narcotic pain medicines have been prescribed, they should be used in addition to anti-inflammatory drugs and only for severe pain. Follow Up with your doctor as advised by our staff. Get Prompt Medical Attention if any of the following occur: Redness or swelling of a painful joint Fever of 100.4F (38C) or higher, or as directed by your healthcare provider Worsening joint pain You have been given the following additional information: Myofascial Pain Syndrome Osteoarthritis (Electronically signed by Mariela Price A.R.N.P. 08/31/2016 19:54)
--- NOTE | 2016-08-31 19:54 | ED MED RECONCILIATION SUMMARY ---
Patient: CHRISTIN CORDON Medication Reconciliation Report [facility] VisitID: [id number] [address] [place] [address] 56y, M Registration Date/Time: 08/31/2016 Weight: 129.2 kg Height/Length: 77 in. BMI: 33.8 ALLERGIES: All narcotics can cause itching- give benadryl before meds , Hydromorphone, Promethazine , Pt had hallucinations when given dilaudid and morphone at hospital same visit , Sulfa Antibiotics The patient's Home Medications are listed below: THE FOLLOWING MEDICATIONS NEED TO BE RECONCILED: AmLODIPine Besylate Oral 10 mg, daily Carvedilol Oral (25 mg), BID Diclofenac Sodium ER Oral 75 mg DULoxetine HCl Oral (20 mg) 60MG, DAILY Gabapentin Enacarbil ER Oral 300-600 MG, HS Hydrochlorothiazide Oral 50 mg, daily Levaquin Oral 750 mg, daily Losartan Potassium Oral (100 mg) 1 tablet, daily Magnesium Oral 400 mg, 2x a day MetFORMIN HCl Oral (1000 mg), 2x a day Omeprazole Oral 20 mg, daily OxyCODONE HCl ER Oral 5mg, QID OxyCONTIN Oral 15 MG, 2x a day PredniSONE Oral, for 10 days then off The source(s) of the original Home Medication information: Not obtained. The following Medications were given to the patient in the Emergency Department: None. The following Medications were prescribed to the patient: None.
--- NOTE | 2016-08-31 19:54 | ED MED RECONCILIATION SUMMARY ---
Patient: CHRISTIN CORDON Medication Reconciliation Report [facility] VisitID: [id number] [address] [place] [address] 56y, M Registration Date/Time: 08/31/2016 Weight: 129.2 kg Height/Length: 77 in. BMI: 33.8 ALLERGIES: All narcotics can cause itching- give benadryl before meds , Hydromorphone, Promethazine , Pt had hallucinations when given dilaudid and morphone at hospital same visit , Sulfa Antibiotics The patient's Home Medications are listed below: THE FOLLOWING MEDICATIONS NEED TO BE RECONCILED: AmLODIPine Besylate Oral 10 mg, daily Carvedilol Oral (25 mg), BID Diclofenac Sodium ER Oral 75 mg DULoxetine HCl Oral (20 mg) 60MG, DAILY Gabapentin Enacarbil ER Oral 300-600 MG, HS Hydrochlorothiazide Oral 50 mg, daily Levaquin Oral 750 mg, daily Losartan Potassium Oral (100 mg) 1 tablet, daily Magnesium Oral 400 mg, 2x a day MetFORMIN HCl Oral (1000 mg), 2x a day Omeprazole Oral 20 mg, daily OxyCODONE HCl ER Oral 5mg, QID OxyCONTIN Oral 15 MG, 2x a day PredniSONE Oral, for 10 days then off The source(s) of the original Home Medication information: Not obtained. The following Medications were given to the patient in the Emergency Department: None. The following Medications were prescribed to the patient: None.
--- NOTE | 2016-08-31 19:54 | ED MAR SUMMARY ---
..... Medication Administration Record [facility] [address] [place] [address] Patient: CHRISTIN CORDON Visit ID: [id number] 56y, M Weight: 129.2 kg Height/Length: 77 in BMI: 33.8 ALLERGIES: All narcotics can cause itching- give benadryl before meds , Hydromorphone, Promethazine , Pt had hallucinations when given dilaudid and morphone at hospital same visit , Sulfa Antibiotics
[2016-09-06] MEDS ORDERED: ROXICODONE5 MG PO (15:25)
[2016-09-06] MEDS ORDERED: BREO ELLIPTA 201 INH (15:26)
[2016-09-06] MEDS ORDERED: DETROL LA4 MG PO (15:26)
[2016-09-06] MEDS ORDERED: METFORMIN HCL500 MG PO (15:28)
[2016-09-06] MEDS ORDERED: PREDNISONE20 MG PO (15:37)
== END 2016-08-31 19:10 | disposition home or self-care (01) ==
LOC: ED SRH 16:17
DX: M79.605 Pain in left leg (principal); M25.572 Pain in left ankle and joints of left foot; I10 Essential (primary) hypertension; E11.9 Type 2 diabetes mellitus without complications; Z79.899 Other long term (current) drug therapy; Z79.84 Long term (current) use of oral hypoglycemic drugs